=== PATIENT | male | born 1935 | race Caucasian/White ===

== ENCOUNTER 2021-08-09 12:57 | Emergency (ER) | payer MEDICARE, OTHER, SELFPAY ==
[2021-08-09 12:57] VITALS: BP 124/72; PULSE 80; RESP 16; TEMP 36.6; O2SAT 98; BMI 25.7
--- NOTE | 2021-08-09 13:21 | CT_ITS ---
FINAL REPORT TECHNIQUE: Axial images through the abdomen and pelvis were performed without contrast.This study was performed with techniques to keep radiation doses as low as reasonably achievable, (ALARA). Individualized dose reduction techniques using automated exposure control or adjustment of mA and/or kV according to the patient's size were employed. CLINICAL HISTORY: LLQ abd pain, hx of prostate cancer COMPARISON: 09/08/2016 FINDINGS: ABDOMEN: The lung bases are clear. The heart size is normal. There is a presumed cyst at the posterior aspect of the liver, stable from prior exam. The spleen is normal. No adrenal mass is identified. The aorta is normal in caliber with moderate vascular calcifications noted. There is no significant free fluid or adenopathy. There are multiple bilateral renal cysts. There is no nephrolithiasis. There is no hydronephrosis. PELVIS: The appendix is normal. There is sigmoid diverticulosis without evidence of diverticulitis. The urinary bladder is unremarkable. There is no significant free fluid or adenopathy. Osseous structures are unremarkable without evidence of bony lesion. IMPRESSION: No acute process. Reviewed, Interpreted and Dictated by Paulino Hahn III, MD Transcribed by Amber Patel Authenticated by Paulino Hahn III, MD on 08/09/2021 01:56:59 PM [facility]
[2021-08-09 13:58] VITALS: BP 156/90; PULSE 78; RESP 16; O2SAT 96
[2021-08-09 14:07] LABS: Microscopic, Urine URINE MICROSCOPIC (MICROSCOPIC)
[2021-08-09 14:11] LABS: Basophils # 0.1 K/mm3 (0-0.2); Basophils % 1.7 % (0.1-2.0); Eosinophils # 0.2 K/mm3 (0.0-0.4); Eosinophils % 3.7 % (0.1-12.0); Hematocrit 44.4 % (42.0-52.0); Hemoglobin 14.1 g/dL (14.1-18.0); Lymphocytes % 20.6 % (10-50); Mean Corpuscular HGB Conc 31.7 g/dL (31.8-35.4); Mean Corpuscular Hemoglobin 31.2 pg (27.0-31.2); Mean Corpuscular Volume 98.3 fl (80-94); Monocytes # 0.2 K/mm3 (0.1-1.0); Monocytes % 4.5 % (1.7-9.3); Neutrophils # 3.4 K/mm3 (1.8-7.8); Neutrophils % 69.5 % (37.0-80.0); Platelet Count 244 K/mm3 (142-424); Red Blood Count 4.52 M/mm3 (4.60-6.20); Red Cell Distribution Width 13.9 % (11.5-17.5); White Blood Count 4.9 K/mm3 (4.8-10.8)
[2021-08-09 14:27] LABS: Alanine Aminotransferase 21 U/L (12-78); Albumin Level 4.5 g/dl (3.5-5.0); Albumin/Globulin Ratio 1.5 (1.1-1.8); Alkaline Phosphatase 80 U/L (38-126); Anion Gap 10.3 mEq/L (5-15); Aspartate Amino Transferase 30 U/L (17-59); Bilirubin,Total 0.5 mg/dl (0.2-1.3); Blood Urea Nitrogen 19 mg/dl (9-20); Calcium 9.2 mg/dl (8.4-10.2); Carbon Dioxide 27 mmol/L (22.0-30.0); Chloride 107 mmol/L (98-107); Creatinine Clearance Estimated 64 mL/min (50-200); Estimated Glomerular Filt Rate 71 ml/min (>60); GFR (African American) 86 ML/MIN (>60); Globulin 3.1 g/dL (1.3-3.2); Glucose 102 mg/dl (74-100); Potassium 4.3 mmoL/L (3.5-5.1); Sodium 140 mmol/L (136-145); Total Protein,Serum 7.6 g/dl (6.3-8.2)
[2021-08-09 14:33] LABS: Appearance,Urine CLEAR (Clear); Bilirubin,Urine Negative (Negative); Blood, Urine TRACE-I (Negative); Color,Urine YELLOW (Yellow); Glucose,Urine (UA) Negative (Negative); Ketones,Urine Negative (Negative); Leukocyte Esterase,Urine Negative (Negative); Nitrate,Urine Negative (Negative); Protein,Urine Negative (Negative); Specific Gravity, Urine 1.025 (1.005-1.030); Urobilinogen,Urine 0.2 EU/dl (0.2)
[2021-08-09 14:48] LABS: RBC,Urine Occasional #/hpf (0-3); Squamous Epithelial Cell,Urine Occasional #/hpf (0-5)
--- NOTE | 2021-08-09 15:07 | HMH.EDABDPAI ---
ED Disposition Clinical Impression: Abdominal pain Disposition: Home, Self-Care Condition on Discharge: Good Instructions: DI for Acute Abdominal Pain Additional Instructions: Please follow up with your primary care physician in 2-3 days for further management. Please return to the emergency department for any concerning symptoms such as worsening abdominal pain, bloody stools, bloody vomit, difficulty urinating or any other concerns. Referrals: Abhinav Muhammad MD [Primary Care Provider] - - Critical Care Critical Care Time: No Attestation: On 08/09/21, the high probability of a clinically significant, sudden or life threatening deterioration of the following system(s) required my full and direct attention, intervention and personal management. The time I documented below is in addition to time spent performing reported procedures but includes the following listed in this critical care notation. Medical Decision Making - Medical Records Medical records reviewed: Yes: I reviewed the patient's medical records. - Helio Inquiry Pt receiving controlled substance: No Vital Signs: 08/09/21 12:57 08/09/21 13:58 08/09/21 18:12 Temperature 98 F 98 F Temperature Source Oral Oral Pulse Rate 78 78 Pulse Rate [Radial] 80 Respiratory Rate 16 16 18 Blood Pressure 156/90 H 145/78 H Blood Pressure [Right Arm] 124/72 Blood Pressure Mean [Right Arm] 89 Blood Pressure Source Automatic Cuff Blood Pressure Position Sitting Sitting Blood Pressure Position [Right Arm] Sitting 02 Sat by Pulse Oximetry 98 96 Oxygen Delivery Method Room Air Room Air Room Air - Lab Data Lab results reviewed: Yes: I reviewed the patient's lab results. Lab Results 08/09/21 13:09: Urine Color Yellow, Urine Appearance Clear, Urine pH 6.0, Ur Specific [place] 1.025, Urine Protein Negative, Urine Glucose (UA) Negative, Urine Ketones Negative, Urine Blood Trace-i, Urine Nitrate Negative, Urine Bilirubin Negative, Urine Urobilinogen 0.2, Ur Leukocyte Esterase Negative, Urine RBC Occasional, Urine WBC None, Ur Squamous Epith Cells Occasional, Urine Bacteria None 08/09/21 13:09: WBC 4.9, RBC 4.52 L, Hgb 14.1, Hct 44.4, MCV 98.3 H, MCH 31.2, MCHC 31.7 L, RDW 13.9, Plt Count 244, MPV 8.0, Neut % (Auto) 69.5, Lymph % (Auto) 20.6, [place] % (Auto) 4.5, Eos % (Auto) 3.7, Baso % (Auto) 1.7, Neut # (Auto) 3.4, Lymph # (Auto) 1.0, [place] # (Auto) 0.2, Eos # (Auto) 0.2, Baso # (Auto) 0.1 08/09/21 13:09: Sodium 140, Potassium 4.3, Chloride 107, Carbon Dioxide 27, Anion Gap 10.3, BUN 19, Creatinine 1.00, Estimated Creat Clear 64, Estimated GFR 71, Est GFR ( Amer) 86, Glucose 102 H, Calcium 9.2, Total Bilirubin 0.5, AST 30, ALT 21, Alkaline Phosphatase 80, Total Protein 7.6, Albumin 4.5, Globulin 3.1, Albumin/Globulin Ratio 1.5 Result diagrams: 08/09/21 13:09 08/09/21 13:09 Medical Decision Narrative: Mr. Hameed is a 86 yo male w/ PMH for prostate cancer who presents to the ED w/ LLQ abd pain for 2 weeks +. Patient is afebrile and hemodynamically stable on arrival, non toxic appearing. Physical exam patient has no tenderness on exam. Non periontici no rebound or guarding. Benign exam overall. No overlying skin changes and no bulges or discoloration of skin. Scrotum normal appearing. Differentials to consider include: Diverticular disease, UTI, SBO/volvus/malignancy, hernia less likely given exam, MSK. Basic labsk UA are non actionable. CT abdomen pelvis w/ contrast shows no obstructive process and no malignancy. Patient is instructed to fu w/ pcp in 2-3 days and to use muscle relaxer for symptoms and to return if symptoms worsen. Abdominal Pain HPI - General Chief Complaint: Abdominal Pain Stated Complaint: left side pain Time Seen by Provider: 08/09/21 13:00 Mode of Arrival: Ambulatory Source of Information: Patient Limitations: No Limitations Description of Symptoms (Recalled from ER Triage Doc. by RN): to ed per pvt car with c/o llq abd pain x
[2021-08-09 18:12] VITALS: BP 145/78; PULSE 78; RESP 18; TEMP 36.6; O2SAT 98
== END 2021-08-09 18:13 | disposition home or self-care (01) ==
PROVIDERS: Emergency Provider Student in an Organized Health Care Education/Training Program; PCP Family Medicine
DX: R10.32 Left lower quadrant pain (principal); I11.0 Hypertensive heart disease with heart failure; I50.9 Heart failure, unspecified; I25.10 Atherosclerotic heart disease of native coronary artery without angina pectoris; Z79.52 Long term (current) use of systemic steroids; Z79.899 Other long term (current) drug therapy; Z88.2 Allergy status to sulfonamides; Z85.46 Personal history of malignant neoplasm of prostate; Z95.0 Presence of cardiac pacemaker
CPT/HCPCS: 74176; 80053; 81001; 85025; 99284

== ENCOUNTER 2021-08-18 21:18 | Emergency (ER) | payer MEDICARE, OTHER, SELFPAY ==
[2021-08-18 21:20] VITALS: BP 153/72; PULSE 80; RESP 16; TEMP 36.8; O2SAT 96; BMI 25.4
--- NOTE | 2021-08-18 21:59 | CT_ITS ---
PROCEDURE INFORMATION: Exam: CT Lumbar Spine Without Contrast Exam date and time: 08/18/2021 9:59 PM Age: 86 years old Clinical indication: Patient HX: Low back pain that radiates to right side and down right leg x2 days. No prior SX to back; Additional info: Leg pain TECHNIQUE: Imaging protocol: Computed tomography images of the lumbar spine without contrast. Radiation optimization: All CT scans at this facility use at least one of these dose optimization techniques: automated exposure control; mA and/or kV adjustment per patient size (includes targeted exams where dose is matched to clinical indication); or iterative reconstruction. COMPARISON: CT ABDOMEN PELVIS WO CON 08/09/2021 1:28 PM FINDINGS: Vertebrae: No acute fracture. Vertebral body heights are maintained. Anatomic alignment is maintained. Discs/Spinal canal/Neural foramina: L1/L2: Circumferential disc bulge. Moderate facet arthropathy. Mild spinal canal narrowing. Mild bilateral neural foraminal narrowing. L2/L3: Circumferential disc bulge with associated posterior disc osteophyte complex. Severe facet arthropathy. Moderate spinal canal narrowing. Mild bilateral neural foraminal narrowing. L3/L4: Circumferential disc bulge. Severe facet arthropathy. Mild spinal canal narrowing. Mild bilateral neural foraminal narrowing. L4/L5: Circumferential disc bulge with posterior disc osteophyte complex. Severe facet arthropathy. Moderate spinal canal narrowing. Moderate bilateral neural foraminal narrowing. L5/S1: Posterior disc protrusion. Severe facet arthropathy. Moderate spinal canal narrowing. Moderate bilateral neural foraminal narrowing. Kidneys and ureters: Multiple simple appearing cysts within the bilateral kidneys largest measuring 6.7 cm within the superior pole the left kidney. Additionally there is a cortically based calcifications within the left kidney. Stomach and bowel: Scattered colonic diverticula. Visualized small bowel is unremarkable. Bladder: The bladder is normal without focal wall thickening. Vasculature: The vasculature demonstrates diffuse mild atherosclerotic calcification. Soft tissues: Unremarkable. Other findings: The adrenal glands are normal. Visualized liver, pancreas, stomach, and spleen are unremarkable. IMPRESSION: 1. No acute fracture. 2. No severe spinal canal narrowing. 3. Multilevel degenerative changes of the spine with multilevel moderate spinal canal and neural foraminal narrowing as above. 4. Other findings as above. COMMENTS: Consistent with the [employer]'s Incidental Findings Committee white paper (J Am Tasha Radiol 2018): Any incidental renal lesion less than 1 cm or classified as too small to characterize, or any incidental cystic renal lesion characterized as simple-appearing, is likely benign. No follow-up imaging is recommended for these lesions per consensus recommendations based on imaging criteria.
[2021-08-18 22:00] VITALS: BP 145/74; PULSE 76; O2SAT 94
--- NOTE | 2021-08-18 22:04 | HMH.EDGENADL ---
ED Disposition Clinical Impression: Lumbar radicular syndrome, Lumbar facet joint pain Disposition: Home, Self-Care Condition on Discharge: Good Instructions: DI for Lumbar Radiculopathy Additional Instructions: use meds and call pcp for follow up Prescriptions: predniSONE [Prednisone 20mg Tab] 20 mg PO BID #10 tab Transmission Status: Pending to [facility] Referrals: Abhinav Muhammad MD [Primary Care Provider] - - Critical Care Critical Care Time: No Attestation: On 08/18/21, the high probability of a clinically significant, sudden or life threatening deterioration of the following system(s) required my full and direct attention, intervention and personal management. The time I documented below is in addition to time spent performing reported procedures but includes the following listed in this critical care notation. Medical Decision Making - Medical Records Medical records reviewed: Yes: I reviewed the patient's medical records. - Helio Inquiry Pt receiving controlled substance: No Vital Signs: 08/18/21 21:20 Temperature 98.2 F Temperature Source Oral Pulse Rate [Left] 80 Respiratory Rate 16 Blood Pressure [Right Arm] 153/72 H Blood Pressure Mean [Right Arm] 99 02 Sat by Pulse Oximetry 96 Oxygen Delivery Method Room Air - Lab Data Lab results reviewed: Yes: I reviewed the patient's lab results. Lab Results 08/18/21 22:20: WBC 6.1, RBC 4.27 L, Hgb 13.5 L, Hct 41.6 L, MCV 97.5 H, MCH 31.5 H, MCHC 32.3, RDW 13.9, Plt Count 233, MPV 8.2, Neut % (Auto) 74.7, Lymph % (Auto) 16.5, [place] % (Auto) 4.6, Eos % (Auto) 3.4, Baso % (Auto) 0.8, Neut # (Auto) 4.6, Lymph # (Auto) 1.0, [place] # (Auto) 0.3, Eos # (Auto) 0.2, Baso # (Auto) 0.1 08/18/21 22:20: Sodium 143, Potassium 4.8, Chloride 106, Carbon Dioxide 30, Anion Gap 11.8, BUN 20, Creatinine 1.00, Estimated Creat Clear 64, Estimated GFR 71, Est GFR ( Amer) 86, Glucose 109 H, Calcium 9.1, C-Reactive Protein 45.2 H 08/18/21 22:20: ESR 122 H Result diagrams: 08/18/21 22:20 08/18/21 22:20 Orders (Tests/Meds): ED MEDICATIONS Generic Name Dose Route Start Last Admin Trade Name Nereida PRN Reason Stop Dose Admin Sodium Chloride 10 ml 08/18/21 21:56 08/18/21 22:04 Sodium Chloride 0.9% 10ml Flush Syringe IV 09/17/21 21:55 10 ml NEEDED PRN Administration Maintain IV Site Discontinued Medications Generic Name Dose Route Start Last Admin Trade Name Freq PRN Reason Stop Dose Admin Acetaminophen/Codeine Phosphate 1 isabel 08/18/21 23:36 08/18/21 23:38 Acetaminophen 300mg W/Codeine 30mg Take Home Pack (6) PO 08/18/21 23:37 1 isabel ONCE ONE Administration Ketorolac Tromethamine 15 mg 08/18/21 21:59 08/18/21 22:03 Ketorolac 30mg/Ml Vial IV 08/18/21 22:00 15 mg ONCE ONE Administration Methylprednisolone Sodium Succinate 125 mg 08/18/21 21:59 08/18/21 22:04 Methylprednisolone Sod Succ 125mg Vial IV 08/18/21 22:00 125 mg ONCE ONE Administration Morphine Sulfate 4 mg 08/18/21 23:18 Morphine 4mg/Ml Syringe IV 08/18/21 23:19 ONCE ONE Ondansetron HCl 4 mg 08/18/21 23:18 Ondansetron 4mg/2ml Vial IV 08/18/21 23:19 ONCE ONE - CT Data CT Scan: L-Spine Time Received: 23:[address] Reviewed: Yes: I have viewed the radiologist's interpretation Preliminary Findings: Abnormal (see report ) Medical Decision Narrative: pt has acute lumbar radicular pain with abn ct of back and elevated infl markers - improved after meds - no cauda equina sx General Adult HPI - General Chief complaint: PAIN Stated complaint: BACK PAIN DOWN R LEG Time Seen by Provider: 08/18/21 21:50 Mode of Arrival: Ambulatory Source of Information: Patient, Medical Record Limitations: No Limitations Description of Symptoms (Recalled from ER Triage Doc. by RN): pt reports to have chronic back pain and recently has started having right leg pain in the top of the right leg distal to the knee.
[2021-08-18 22:28] LABS: Basophils # 0.1 K/mm3 (0-0.2); Basophils % 0.8 % (0.1-2.0); Eosinophils # 0.2 K/mm3 (0.0-0.4); Eosinophils % 3.4 % (0.1-12.0); Hematocrit 41.6 % (42.0-52.0); Hemoglobin 13.5 g/dL (14.1-18.0); Lymphocytes % 16.5 % (10-50); Mean Corpuscular HGB Conc 32.3 g/dL (31.8-35.4); Mean Corpuscular Hemoglobin 31.5 pg (27.0-31.2); Mean Corpuscular Volume 97.5 fl (80-94); Mean Platelet Volume 8.2 fl (7.4-10.4); Monocytes # 0.3 K/mm3 (0.1-1.0); Monocytes % 4.6 % (1.7-9.3); Neutrophils # 4.6 K/mm3 (1.8-7.8); Neutrophils % 74.7 % (37.0-80.0); Platelet Count 233 K/mm3 (142-424); Red Blood Count 4.27 M/mm3 (4.60-6.20); Red Cell Distribution Width 13.9 % (11.5-17.5); White Blood Count 6.1 K/mm3 (4.8-10.8)
[2021-08-18 22:45] LABS: Blood Urea Nitrogen 20 mg/dl (9-20); Calcium 9.1 mg/dl (8.4-10.2); Carbon Dioxide 30 mmol/L (22.0-30.0); Creatinine Clearance Estimated 64 mL/min (50-200); Estimated Glomerular Filt Rate 71 ml/min (>60); GFR (African American) 86 ML/MIN (>60); Glucose 109 mg/dl (74-100); Potassium 4.8 mmoL/L (3.5-5.1); Sodium 143 mmol/L (136-145)
[2021-08-18 22:50] LABS: C-Reactive Protein 45.2 mg/L (0-4)
[2021-08-18 23:00] VITALS: BP 137/72; PULSE 73; O2SAT 95
[2021-08-18 23:05] LABS: Anion Gap 11.8 mEq/L (5-15); Chloride 106 mmol/L (98-107)
[2021-08-18 23:09] LABS: Erythrocyte Sedimentation Rate 122 mm/hr (0-20)
--- NOTE | 2021-08-18 23:41 | PC.NURSE ---
Radiology asked for a disk
[2021-08-18 23:59] VITALS: BP 122/72; PULSE 71; RESP 16; TEMP 36.6; O2SAT 96
== END 2021-08-19 00:04 | disposition home or self-care (01) ==
PROVIDERS: Emergency Provider Emergency Medicine; PCP Family Medicine
DX: M54.41 Lumbago with sciatica, right side (principal); I25.10 Atherosclerotic heart disease of native coronary artery without angina pectoris; I10 Essential (primary) hypertension; Z95.0 Presence of cardiac pacemaker; Z79.899 Other long term (current) drug therapy
CPT/HCPCS: 72131; 80048; 85025; 85651; 86140; 96374; 96375; 99284

== ENCOUNTER 2023-10-20 10:57 | Emergency (ER) | payer MEDICARE, OTHER, SELFPAY ==
--- NOTE | 2023-10-20 11:03 | EXP.UTC ---
Discharge Plan Prescriptions Prescriptions: No Action atenolol 25 MG tablet 25 mg PO BID clopidogrel 75 MG tablet 75 mg PO DAILY flecainide 100 MG tablet 100 mg PO BID prednisone 20 MG tablet 20 mg PO BID Qty: 10 0RF Referrals Follow up/Referrals: Abhinav Muhammad MD [Primary Care Provider] - See instructions Discharge ED Provider: Giovani Leon [facility] HPI General Stated complaint: congestion, weakness Time Seen by Provider: 10/20/23 11:24 Related Data Home Medications Medication Instructions Recorded Confirmed atenolol 25 mg tablet 25 mg PO BID htn 06/15/19 06/15/19 clopidogrel 75 mg tablet 75 mg PO DAILY blood thinner 06/15/19 06/15/19 flecainide 100 mg tablet 100 mg PO BID . 06/15/19 06/15/19 Previous Rx's Medication Instructions Recorded prednisone 20 mg tablet 20 mg PO BID #10 tabs 08/18/21 Allergies Allergy/AdvReac Type Severity Reaction Status Date / Time Sulfa (Sulfonamide Allergy Mild Verified 06/15/19 06:54 Antibiotics) [SULFA (SULFONAMIDE ANTIBIOTICS)] [facility] Disclaimer: The information contained in this section may have been updated after the patient was seen, as this information can be updated by other users. Social History alcohol intake: never current occupational status: retired Travel in the last 8 weeks: None household members: spouse housing: house
--- NOTE | 2023-10-20 11:23 | PC.NURSE ---
While pt was waiting for UTC in lobby, registration reports they want the ER now . Brought back to room 9 in ER.
[2023-10-20 11:24] VITALS: BP 161/75; PULSE 80; RESP 16; TEMP 38.7; O2SAT 95; BMI 26.4
[2023-10-20 11:26] VITALS: BP 161/75; PULSE 74; O2SAT 95
[2023-10-20 11:30] VITALS: BP 134/66; PULSE 76; O2SAT 95
[2023-10-20 11:34] LABS: Influenza A, PCR Not Detected (NotDetected); Influenza B, PCR Not Detected (NotDetected)
[2023-10-20 12:00] VITALS: BP 143/63; PULSE 70; O2SAT 93
--- NOTE | 2023-10-20 12:25 | PC.NURSE ---
called lab to check eta on covid swab states 20 minutes left
--- NOTE | 2023-10-20 12:26 | PC.NURSE ---
UPDATED PT AND FAMILY MEMBER ON THE STATUS OF COVID SWAB
[2023-10-20 12:52] LABS: Coronavirus 19, PCR Detected (NotDetected)
[2023-10-20 13:30] VITALS: BP 135/68; PULSE 71; RESP 18; TEMP 36.7; O2SAT 97
--- NOTE | 2023-10-20 17:21 | ED_ITS ---
Discharge Plan Disposition Patient Disposition: Home, Self-Care Condition: Good Prescriptions Prescriptions: New prochlorperazine maleate [Compazine] 5 mg tablet 5 mg PO BID PRN (Reason: nausea and vomiting) Qty: 7 0RF No Action atenolol 25 MG tablet 25 mg PO BID clopidogrel 75 MG tablet 75 mg PO DAILY flecainide 100 MG tablet 100 mg PO BID prednisone 20 MG tablet 20 mg PO BID Qty: 10 0RF Referrals Follow up/Referrals: Abhinav Muhammad MD [Primary Care Provider] - See instructions Activity Restrictions/Add. Instructions Additional Instructions/Restrictions: Unfortunately your flecainide medication as strong interactions with Paxlovid and therefore it is not recommended per guidelines that it be prescribed. I have prescribed a nausea medication as we talked about. Please take Tylenol as needed for fever. Please return with any new or worsening symptoms. Clinical Impressions Clinical Impression: COVID Instructions Patient Instructions: DI for COVID-19 (Suspected or Confirmed ) Discharge ED Provider: Giovani Leon General Adult HPI General Chief complaint: Upper Respiratory Infection Stated complaint: congestion, weakness Time Seen by Provider: 10/20/23 11:24 Mode of Arrival: Wheelchair Source of Information: Patient Limitations: No Limitations Description of Symptoms (Recalled from ER Triage Doc. by RN): Patient reports a cough, cold, congestion and increased weakness since yesterday. Daughter states she did an at home COVID swab and it had a faint line. History of Present Illness HPI narrative: The patient presents with a chief complaint of concerns about possibly having COVID-19. He reports feeling unwell since yesterday and mentions having been around numerous individuals who could potentially have COVID-19. The patient describes experiencing severe headaches, which are unusual for him, and extreme weakness to the point of being unable to stand up. Additionally, he notes some coughing but denies any shortness of breath. He has not had COVID-19 in the past and has received only the first dose of the COVID-19 vaccine a few years ago. The patient denies any chronic lung conditions. He also mentions having a fever. The patient has a pacemaker and is currently on several medications including Plavix (Clopidogrel), flecainide, atenolol, and a statin, which was recently started due to newly diagnosed high cholesterol. Please note that above description of symptoms, in this electronic medical record under categorization of recalled from ER triage doctor by RN are reflective of an initial nursing assessment, however, is not reflective of my full history and physical exam that was personally taken and clarified. Consequentially, this preceding description of symptoms, which may include the patient's categorized chief complaint in the EMR, do not reflect my personal clinical impression, and the ultimate description of history of present illness and patient stated complaints should be deferred to this section of the note. Unless stated otherwise or congruent with this section of the note, additional signs, symptoms, or incongruence should be interpreted as inaccurate with my clinical impression. Related Data Home Medications Medication Instructions Recorded Confirmed atenolol 25 mg tablet 25 mg PO BID htn 06/15/19 06/15/19 clopidogrel 75 mg tablet 75 mg PO DAILY blood thinner 06/15/19 06/15/19 flecainide 100 mg tablet 100 mg PO BID . 06/15/19 06/15/19 Previous Rx's Medication Instructions Recorded prednisone 20 mg tablet 20 mg PO BID #10 tabs 08/18/21 prochlorperazine maleate 5 mg 5 mg PO BID PRN nausea and 10/20/23 tablet (Compazine) vomiting 1 dose #7 tabs Allergies Allergy/AdvReac Type Severity Reaction Status Date / Time Sulfa (Sulfonamide Allergy Mild Verified 06/15/19 06:54 Antibiotics) [SULFA (SULFONAMIDE ANTIBIOTICS)] [facility] Disclaimer: The information contained in this section may have been updated after the patient was seen, as this information can be updated by other users. Social History Smoking Status: Never smoker alcohol intake: never current occupational status: retired Travel in the last 8 weeks: None household members: spouse housing: house ROS Obtained: Yes other As per HPI Physical Exam General General appearance: alert and in no apparent distress Head Head exam: atraumatic and normocephalic Eye Eye exam: Present normal appearance Neck Neck exam: Present normal inspection Chest Chest inspection: Present normal inspection and symmetric chest wall rise Respiratory Respiratory exam: Present normal lung sounds bilaterally; Absent respiratory distress Cardiovascular Cardiovascular exam: Present regular rate and normal rhythm Abdominal Exam Abdominal exam: Present soft Neurological Exam Neurological exam: Present alert and oriented X3 Psychiatric Psychiatric exam: Present normal affect and normal mood Skin Skin exam: Present warm and dry Medical Decision Making Medical Records Medical records reviewed: Yes I reviewed the patient's medical records. Helio Inquiry Pt receiving controlled substance: No Vital Signs: 10/20/23 11:24 10/20/23 11:26 10/20/23 11:30 Temperature 101.6 F H Temperature Source Oral Pulse Rate 74 76 Pulse Rate [Radial] 80 Respiratory Rate 16 Blood Pressure 161/75 H 134/66 Blood Pressure [Right Arm] 161/75 H Blood Pressure Mean [Right Arm] 103 Blood Pressure Source Blood Pressure Source [Right Arm] Automatic Cuff Blood Pressure Position Blood Pressure Position [Right Arm] Sitting 02 Sat by Pulse Oximetry 95 95 95 Oxygen Delivery Method Room Air Room Air Room Air 10/20/23 12:00 10/20/23 13:30 Temperature 98.1 F Temperature Source Oral Pulse Rate 70 71 Pulse Rate [Radial] Respiratory Rate 18 Blood Pressure 143/63 H 135/68 Blood Pressure [Right Arm] Blood Pressure Mean [Right Arm] Blood Pressure Source Automatic Cuff Blood Pressure Source [Right Arm] Blood Pressure Position Sitting Blood Pressure Position [Right Arm] 02 Sat by Pulse Oximetry 93 L Oxygen Delivery Method Room Air Room Air Lab Data Lab Results 10/20/23 11:27: SARS-CoV-2 (PCR) Detected A, Influenza A Untype (PCR) Not detected, Influenza Type B (PCR) Not detected Orders (Tests/Meds): ORDERS Category Date Time Status Rapid PCR Covid and Flu A/B Stat Lab 10/20/23 11:27 Completed Medical Decision Narrative: Patient with history and exam per above presenting for evaluation of concerns for exposure to COVID, malaise Diagnoses considered include COVID-19, influenza, no clinical evidence of pneumonia, meningitis, otitis, or acute surgical pathology ED workup and treatment included: COVID and flu testing Labs were independently interpreted by me, significant for COVID-positive My clinical impression at this time is most consistent with COVID-19, patient, given use of flecainide, is not a candidate for Paxlovid therapy. However, he is nontoxic-appearing, no hypoxemia, no other clinical evidence of acute compli cation at this time. I discussed my clinical impression with patient and answered all questions. At this time, the evidence for any other entities in the differential is insufficient to warrant any further testing or ED observation. This was explained to the patient. The patient was advised that persistent or worsening symptoms require further evaluation. I confirmed the patient's understanding of this discussion. Critical Care Critical Care Time Critical Care Time: No
== END 2023-10-20 13:31 | disposition home or self-care (01) ==
LOC: UTC 11:04 → ER 11:23
PROVIDERS: Emergency Provider Emergency Medicine; PCP Family Medicine
DX: U07.1 COVID-19 (principal); R51.9 Headache, unspecified; R53.1 Weakness; R05.9 Cough, unspecified
CPT/HCPCS: 87636; 99283

== ENCOUNTER 2023-11-23 10:29 | Outpatient (CLI) | payer MEDICARE, OTHER, SELFPAY ==
--- NOTE | 2023-11-23 10:41 | XR_ITS ---
FINAL REPORT CLINICAL HISTORY: Lt Knee Pain. Torn meniscus 20 yrs ago- never had sx to repair. FINDINGS: LEFT KNEE 3 views of the left knee were obtained. There is no acute fracture or dislocation. Visualized joint spaces are normally aligned. Soft tissues are unremarkable. IMPRESSION: No acute bony abnormality. Reviewed, Interpreted and Dictated by Romie Tafoya MD Transcribed by Amber Patel Authenticated and [facility]
== END 2023-11-23 23:59 | disposition home or self-care (01) ==
LOC: RAD 10:30
PROVIDERS: PCP Family Medicine; Visit Provider Orthopaedic Surgery
DX: M25.562 Pain in left knee (principal)
CPT/HCPCS: 73562

== ENCOUNTER 2024-06-04 11:00 | Outpatient (RCR) | payer MEDICARE, OTHER, SELFPAY | END 2024-06-04 23:59 | disposition home or self-care (01) | LOC: PT 11:00 | PROVIDERS: PCP Family Medicine; Visit Provider Physician Assistant | DX: R26.89 Other abnormalities of gait and mobility (principal) | CPT/HCPCS: 97110; 97112; 97163; 97530 ==

== ENCOUNTER 2024-11-11 10:46 | Outpatient (CLI) | payer MEDICARE, OTHER, SELFPAY ==
--- OUTSIDE RECORDS SUMMARY | 2024-11-12 15:10 | XMS_ITS | Data Portability ---
Author Organization [facility] [place] CLOSED Address [address] [facility] [address] [address] [place] [address] Care Team Providers Care Claims Agent Right Of Way Name Role Phone CHRISTINA NOBLE Primary Care Provider ELOISE WHITE Laminating Machine Operator Assessment Encounter Date Assessment Date Assessment LastModified by Organization Details LastModified Time 04/09/2024 04/09/2024 follow up annually, pending path [email or web address] Not available 04/09/2024 09:55:26 Plan of Treatment Reminders Order Date Submit Date Provider Last Modified By Organization Details Last Modified Time Details Appointments RECHECK 2024 11:40A M ELOISE WHITE MD Not available Not available Not available PHYSICAL EXAM 2024 09:00A M CHRISTINA NOBLE PA-C Not available Not available Not available Lab surgical pathology study 2023 [facility], [address] [place] [address], [address], 04/11/2024 23:10:45 TSH, serum or plasma 2023 024 [facility], [address] [place] [address], [phone], 04/08/2024 12:48:19 urinalysi s panel, auto 2023 024 [email or web address] [facility], [address] [place] [address] , [place], [address], 04/08/2024 10:01:34 CBC w/ auto diff 2023 024 [facility], [address] [place] [address], [phone], 04/08/2024 12:00:06 CMP, serum or plasma 2023 024 [facility], [address] [place] [address], [id number], 04/08/2024 13:00:29 hepatitis C Ab, serum 2023 024 [facility], [address] [place] [address], [address], 04/09/2024 17:35:16 lipid panel, serum [address], [address] [place] [address], [address], 03/12/2024 08:18:43 Referral dermatolo gist referral - fbe 2023 024 [email or web address] Gustavo Vo MD, [address], [place] [address], [place], [address], 05/06/2024 10:34:39 physical therapist referral 2023 024 [email or web address] [facility], [address], [place], [address], 05/17/2024 07:49:55 Procedures pacemaker programmi ng, dual lead (PROC) 2024 025 [facility], [address], [facility], [place], [address], 09/05/2024 10:37:34 device check (PROC) 2023 024 [email or web address] [facility], [address], [facility], [place], [address], 03/05/2024 11:22:31 Surgeries None recorded. Imaging electroca rdiogram 2023 024 [email or web address] [facility], [address], [place], [address], 03/05/2024 10:42:28 Medication Orders None recorded. Patient TargetsNo targets recorded. Patient Instructions Encounter Date Encounter Id Patient Instructions Last Modified By Organization Details Last Modified Time 08/23/2023 [id number] body mass index: care instructions major Not available 08/23/2023 09:41:06 Patient was give n an opportunity and encouraged to ask questions. All questions and concerns were addressed to the best of my ability. Follow-up in 6 months with an EKG. Continue with home pacemaker monitoring Thank you for allowing us to participate in the care of your patient. If we can be of any further assistance please do not hesitate to contact us. Jamel Cherry MD, FACP, FACC, [facility] Cardiology-[facility] [phone] major Not available 08/23/2023 09:41:05 04/09/2024 [id number] Education: We discussed the potential diagnostic options, options for further evaluation and treatments, and the risks and benefits of each. [email or web address] Not available 04/08/2024 16:52:38 Reason for Referral Physical Therapist Referral for Unsteady when walking Referring Physician: [facility], Encounter Date: 04/08/2024 Trestle Mechanic Referral for M ultiple benign melanocytic nevi fbe Referring Physician: [facility], Encounter Date: 04/08/2024 Results Created Date Observation Date Name Description Value Unit Range Abnormal Flag Note LastModifiedBy Organization Detail LastModifiedTime 08/23/19 24 08/23/2023 MAGNE SIUM magnesium 2.1 mg/dL 1.6-2. 6 normal Not Available [facility] [address] [place], [address], 08/23/2023 12:47:29 08/23/19 24 08/23/2023 LIPID PROFI LE HDL cholesterol 42 mg/dL 40-242 normal Not Available [facility] [address] [place] [address], [address], 08/23/2023 12:47:31 08/23/19 24 08/23/2023 LIPID PROFI LE triglyceride s 164 mg/dL 0-149 high TRIGL YCERI DE RANGE S SCARLETT L: < 150 BORDE RLINE HIGH: 150 - 199 HIGH: 200 - 499 VERY HIGH: > OR = 500 Not Available [facility] [address] [place] [address], [address], 08/23/2023 12:47:31 08/23/19 24 08/23/2023 LIPID PROFI LE cholesterol 254 mg/dL 0-199 high YOANNA STERO L (TOTA L) RANGE S JEANNETTE ABLE: < 200 BORDE RLINE : 200 - 239 HIGHE R RISK: > 239 Not Available [facility] [address] [place] [address], [address], 08/23/2023 12:47:31 08/23/19 24 08/23/2023 LIPID PROFI LE LDL cholesterol 179 mg/dL _(hailey c) 0-99 high LDL YOANNA STERO L RANGE S OPTIM AL: < 100 NEAR/ ABOVE OPTIM AL: 100 - 129 BORDE RLINE HIGH: 130 - 159 HIGH: 160 - 189 VERY HIGH: > OR = 190 Not Available [facility] [address] [place] [address], [address], 08/23/2023 12:47:31 08/23/19 24 08/23/2023 COMP. METAB OLIC PANEL glucose 103 mg/dL 74-100 high Not Available [facility] [address] [place] [address], [address], 08/23/2023 12:47:33 08/23/19 24 08/23/2023 COMP. METAB OLIC PANEL blood urea nitrogen 20 mg/dL 6-20 normal Not Available [facility] [address] [place] [address], [address], 08/23/2023 12:47:33 08/23/19 24 08/23/2023 COMP. METAB OLIC PANEL creatinine 1.12 mg/dL 0.70-1 .28 normal Not Available [facility] [address] [place] [address], [address], 08/23/2023 12:47:33 08/23/19 24 08/23/2023 COMP. METAB OLIC PANEL BUN/creatini ne ratio 18 (calc ) 10-20 normal Not Available [facility] [address] [place] [address], [address], 08/23/2023 12:47:33 08/23/19 24 08/23/2023 COMP. METAB OLIC PANEL sodium 141 mmol/ L 136-14 5 normal Not Available [facility] [address] [place] [address], [address], 08/23/2023 12:47:33 08/23/19 24 08/23/2023 COMP. METAB OLIC PANEL potassium 4.3 mmol/ L 3.4-5. 0 normal Not Available [facility] [address] [place] [address], [address], 08/23/2023 12:47:33 08/23/19 24 08/23/2023 COMP. METAB OLIC PANEL chloride 106 mmol/ L 98-107 normal Not Available [facility] [address] [place] [address], [address], 08/23/2023 12:47:33 08/23/19 24 08/23/2023 COMP. METAB OLIC PANEL carbon dioxide 24 mmol/ L 22-31 normal Not Available [facility] [address] [place] [address], [address], 08/23/2023 12:47:33 08/23/19 24 08/23/2023 COMP. METAB OLIC PANEL anion gap 11 (calc ) 7-25 normal Not Available [facility] [address] [place] [address], [address], 08/23/2023 12:47:33 08/23/19 24 08/23/2023 COMP. METAB OLIC PANEL calcium 9.8 mg/dL 8.6-10 .2 normal Not Available [facility] [address] [place] [address], [address], 08/23/2023 12:47:33 08/23/19 24 08/23/2023 COMP. METAB OLIC PANEL total protein 7.4 g/dL 6.4-8. 3 normal Not Available [facility] [address] [place] [address], [address], 08/23/2023 12:47:33 08/23/19 24 08/23/2023 COMP. METAB OLIC PANEL albumin 4.4 g/dL 3.5-5. 2 normal Not Available [facility] [address] [place] [address], [address], 08/23/2023 12:47:33 08/23/19 24 08/23/2023 COMP. METAB OLIC PANEL globulin 3.0 1.5-4. 5 normal Not Available [facility] [address] [place] [address], [address], 08/23/2023 12:47:33 08/23/19 24 08/23/2023 COMP. METAB OLIC PANEL albumin/glob ulin ratio 1.5 (calc ) 1.1-2. 5 normal Not Available [facility] [address] [place] [address], [address], 08/23/2023 12:47:33 08/23/19 24 08/23/2023 COMP. METAB OLIC PANEL bilirubin, total 0.4 mg/dL 0.1-1. 2 normal Not Available [facility] [address] [place] [address], [address], 08/23/2023 12:47:33 08/23/19 24 08/23/2023 COMP. METAB OLIC PANEL alkaline phosphatase 92 U/L 40-129 normal Not Available [facility] [address] [place], [address], 08/23/2023 12:47:33 08/23/19 24 08/23/2023 COMP. METAB OLIC PANEL AST 16 U/L 0-40 normal Not Available [facility] [address] [place], [address], 08/23/2023 12:47:33 08/23/19 24 08/23/2023 COMP. METAB OLIC PANEL ALT 13 U/L 0-41 normal Not Available [facility] [address] [place], [address], 08/23/2023 12:47:33 08/23/19 24 08/23/2023 COMP. METAB OLIC PANEL GFR 63 >= 60 normal NOT E New calcu latio n for GFR (CKD- EPI 2020) is formu lated witho ut race adjus tment facto rs at the recom menda tion of the Edi Oliveira y Óscar atvicky and [facility] Tre[facility]oe ty of Nephr ology . This calcu latio n has not been valid ated in pregn ant women . For hallie grey nts refer to https ://traci arguelles.o benton/pr brianda au s/KDO QI/gf r_cal culat orPed Not Available [facility] [address] [place], [address], 08/23/2023 12:47:33 03/05/20 24 03/05/2024 LIPID PROFI LE HDL cholesterol 45 mg/dL 40-242 normal Not Available [facility] [address] [place], [address], 03/05/2024 12:22:20 03/05/20 24 03/05/2024 LIPID PROFI LE triglyceride s 119 mg/dL 0-149 normal TRIGL YCERI DE RANGE S SCARLETT L: < 150 BORDE RLINE HIGH: 150 - 199 HIGH: 200 - 499 VERY HIGH: > OR = 500 Not Available [facility] [address] [place] [address], [address], 03/05/2024 12:22:20 03/05/20 24 03/05/2024 LIPID PROFI LE cholesterol 163 mg/dL 0-199 normal YOANNA STERO L (TOTA L) RANGE S JEANNETTE ABLE: < 200 BORDE RLINE : 200 - 239 HIGHE R RISK: > 239 Not Available [facility] [address] [place] [address], [address], 03/05/2024 12:22:20 03/05/20 24 03/05/2024 LIPID PROFI LE LDL cholesterol 94 mg/dL _(hailey c) 0-99 normal LDL YOANNA STERO L RANGE S OPTIM AL: < 100 NEAR/ ABOVE OPTIM AL: 100 - 129 BORDE RLINE HIGH: 130 - 159 HIGH: 160 - 189 VERY HIGH: > OR = 190 Not Available [facility] [address] [place] [address], [address], 03/05/2024 12:22:20 04/08/20 24 04/08/2024 COMPL ETE BLOOD COUNT white blood cells 5.4 10*3/ uL 3.8-10 .8 normal Not Available [facility] [address] [place] [address], [address], 04/08/2024 12:00:06 04/08/20 24 04/08/2024 COMPL ETE BLOOD COUNT red blood cells 4.46 10*6/ uL 4.20-5 .80 normal Not Available [facility] [address] [place] [address], [address], 04/08/2024 12:00:06 04/08/20 24 04/08/2024 COMPL ETE BLOOD COUNT hemoglobin 14.2 g/dL 14.0-1 8.0 normal Not Available [facility] [address] [place] [address], [address], 04/08/2024 12:00:06 04/08/20 24 04/08/2024 COMPL ETE BLOOD COUNT hematocrit 40.7 % 40.0-5 2.0 normal Not Available [facility] [address] [place] [address], [address], 04/08/2024 12:00:06 04/08/20 24 04/08/2024 COMPL ETE BLOOD COUNT MCV 91 fL 80-100 normal Not Available [facility] [address] [place] [address], [address], 04/08/2024 12:00:06 04/08/2004/08/2024 COMPL ETE BLOOD COUNT MCH 32 pg 26-35 normal Not Available [facility] [address] [place] [address], [address], 04/08/2024 12:00:06 04/08/20 24 04/08/2024 COMPL ETE BLOOD COUNT MCHC 35 g/dL 32-36 normal Not Available [facility] [address] [place] [address], [address], 04/08/2024 12:00:06 04/08/2004/08/2024 COMPL ETE BLOOD COUNT RDW 13.3 % 11.0-1 5.0 normal Not Available [facility] [address] [place] [address], [address], 04/08/2024 12:00:06 04/08/20 24 04/08/2024 COMPL ETE BLOOD COUNT MPV 8.5 fL 6.2-10 .5 normal Not Available [facility] [address] [place] [address], [address], 04/08/2024 12:00:06 04/08/2004/08/2024 COMPL ETE BLOOD COUNT platelet count 184 10*3/ uL 150-40 0 normal Not Available [facility] [address] [place] [address], [address], 04/08/2024 12:00:06 04/08/2004/08/2024 COMPL ETE BLOOD COUNT neutrophil,a bsolute 3.7 10*3/ uL 1.6-8. 4 normal Not Available [facility] [address] [place] [address], [address], 04/08/2024 12:00:06 04/08/20 24 04/08/2024 COMPL ETE BLOOD COUNT lymphocyte,a bsolute 1.1 10*3/ uL 0.4-5. 1 normal Not Available [facility] [address] [place] [address], [address], 04/08/2024 12:00:06 04/08/2004/08/2024 COMPL ETE BLOOD COUNT monocyte,abs olute 0.4 10*3/ uL 0.0-1. 2 normal Not Available [facility] [address] [place] [address], [address], 04/08/2024 12:00:06 04/08/20 24 04/08/2024 COMPL ETE BLOOD COUNT eosinophil,a bsolute 0.2 10*3/ uL 0.0-0. 8 normal Not Available [facility] [address] [place] [address], [address], 04/08/2024 12:00:06 04/08/20 24 04/08/2024 COMPL ETE BLOOD COUNT basophil,abs olute 0.1 10*3/ uL 0.0-0. 3 normal Not Available [facility] [address] [place] [address], [address], 04/08/2024 12:00:06 04/08/20 24 04/08/2024 COMPL ETE BLOOD COUNT % neutrophils 67.6 % 42.0-7 8.0 normal Not Available [facility] [address] [place] [address], [address], 04/08/2024 12:00:06 04/08/20 24 04/08/2024 COMPL ETE BLOOD COUNT % lymphocytes 20.7 % 11.0-4 7.0 normal Not Available [facility] [address] [place] [address], [address], 04/08/2024 12:00:06 04/08/20 24 04/08/2024 COMPL ETE BLOOD COUNT % monocytes 7.4 % 0.0-11 .0 normal Not Available [facility] [address] [place] [address], [address], 04/08/2024 12:00:06 04/08/20 24 04/08/2024 COMPL ETE BLOOD COUNT % eosinophils 3.0 % 0.0-7. 0 normal Not Available [facility] [address] [place] [address], [address], 04/08/2024 12:00:06 04/08/20 24 04/08/2024 COMPL ETE BLOOD COUNT % basophils 1.3 % 0.0-3. 0 normal Not Available [facility] [address] [place] [address], [address], 04/08/2024 12:00:06 04/08/20 24 04/08/2024 COMPL ETE BLOOD COUNT nucleated red cells 0.1 % 0.0-0. 9 normal Not Available [facility] [address] [place] [address], [address], 04/08/2024 12:00:06 04/08/20 24 04/08/2024 COMPL ETE BLOOD COUNT nucleated RBCs, absolute 0.01 10*3/ uL not estab. normal Not Available [facility] [address] [place] [address], [address], 04/08/2024 12:00:06 04/08/20 24 04/08/2024 TSH TSH 1.530 u[IU] /mL 0.270- 4.200 normal Not Available [facility] [address] [place] [address], [address], 04/08/2024 12:48:19 04/08/20 24 04/08/2024 COMP. METAB OLIC PANEL glucose 97 mg/dL 74-100 normal Not Available [facility] [address] [place] [address], [address], 04/08/2024 13:00:29 04/08/20 24 04/08/2024 COMP. METAB OLIC PANEL blood urea nitrogen 22 mg/dL 6-20 high Not Available [facility] [address] [place] [address], [address], 04/08/2024 13:00:29 04/08/20 24 04/08/2024 COMP. METAB OLIC PANEL creatinine 1.06 mg/dL 0.70-1 .28 normal Not Available [facility] [address] [place] [address], [address], 04/08/2024 13:00:29 04/08/20 24 04/08/2024 COMP. METAB OLIC PANEL BUN/creatini ne ratio 21 (calc ) 10-20 high Not Available [facility] [address] [place] [address], [address], 04/08/2024 13:00:29 04/08/20 24 04/08/2024 COMP. METAB OLIC PANEL sodium 142 mmol/ L 136-14 5 normal Not Available [facility] [address] [place] [address], [address], 04/08/2024 13:00:29 04/08/20 24 04/08/2024 COMP. METAB OLIC PANEL potassium 4.2 mmol/ L 3.4-5. 0 normal Not Available [facility] [address] [place] [address], [address], 04/08/2024 13:00:29 04/08/20 24 04/08/2024 COMP. METAB OLIC PANEL chloride 106 mmol/ L 98-107 normal Not Available [facility] [address] [place] [address], [address], 04/08/2024 13:00:29 04/08/20 24 04/08/2024 COMP. METAB OLIC PANEL carbon dioxide 23 mmol/ L 22-31 normal Not Available [facility] [address] [place] [address], [address], 04/08/2024 13:00:29 04/08/20 24 04/08/2024 COMP. METAB OLIC PANEL anion gap 13 (calc ) 7-25 normal Not Available [facility] [address] [place] [address], [address], 04/08/2024 13:00:29 04/08/20 24 04/08/2024 COMP. METAB OLIC PANEL calcium 9.6 mg/dL 8.6-10 .2 normal Not Available [facility] [address] [place] [address], [address], 04/08/2024 13:00:29 04/08/20 24 04/08/2024 COMP. METAB OLIC PANEL total protein 7.5 g/dL 6.4-8. 3 normal Not Available [facility] [address] [place] [address], [address], 04/08/2024 13:00:29 04/08/20 24 04/08/2024 COMP. METAB OLIC PANEL albumin 4.3 g/dL 3.5-5. 2 normal Not Available [facility] [address] [place] [address], [address], 04/08/2024 13:00:29 04/08/20 24 04/08/2024 COMP. METAB OLIC PANEL globulin 3.2 1.5-4. 5 normal Not Available [facility] [address] [place] [address], [address], 04/08/2024 13:00:29 04/08/20 24 04/08/2024 COMP. METAB OLIC PANEL albumin/glob ulin ratio 1.3 (calc ) 1.1-2. 5 normal Not Available [facility] [address] [place] [address], [address], 04/08/2024 13:00:29 04/08/20 24 04/08/2024 COMP. METAB OLIC PANEL bilirubin, total 0.5 mg/dL 0.1-1. 2 normal Not Available [facility] [address] [place] [address], [address], 04/08/2024 13:00:29 04/08/20 24 04/08/2024 COMP. METAB OLIC PANEL alkaline phosphatase 91 U/L 40-129 normal Not Available [facility] [address] [place] [address], [address], 04/08/2024 13:00:29 04/08/20 24 04/08/2024 COMP. METAB OLIC PANEL AST 16 U/L 0-40 normal Not Available [facility] [address] [place] [address], [address], 04/08/2024 13:00:29 04/08/20 24 04/08/2024 COMP. METAB OLIC PANEL ALT 13 U/L 0-41 normal Not Available [facility] [address] [place] [address], [address], 04/08/2024 13:00:29 04/08/20 24 04/08/2024 COMP. METAB OLIC PANEL GFR 68 >= 60 normal NOT E New calcu latio n for GFR (CKD- EPI 2020) is formu lated witho ut race adjus tment facto rs at the [facility] menda tion of the Edi Oliveira y Óscar driscoll and [facility] . This calcu latio n has not been valid ated in pregn ant women . For pedia tric patie nts refer to https ://traci arguelles.jumana bhardwaj/florentin au s/LOBITOO QI/gf r_cal culat orPed Not Available [facility] [address] [place] [address], [address], 04/08/2024 13:00:29 04/08/20 24 04/09/2024 HEPAT ITIS C AB SCR, REFLE X HCVQT hcab scr, reflex viral RNA qt NONREA CTIVE nonrea ctive normal Antib odies to HCV were not detec twila; does not exclu de the possi bilit y of expos ure to HCV. Not Available [facility] [address] [facility], [place], [address], 04/09/2024 17:35:16 04/08/20 24 04/08/2024 urina lysis panel , auto Unknown Analyte Clean Catch Not Available [address] [place], [place], [address], 04/08/2024 07:18:33 04/08/20 24 04/08/2024 urina lysis panel , auto Unknown Analyte Yellow Not Available [address] [place], [place], [address], 04/08/2024 07:18:33 04/08/20 24 04/08/2024 urina lysis panel , auto Unknown Analyte Clear Not Available [address], [place], [address], 04/08/2024 07:18:33 04/08/20 24 04/08/2024 urina lysis panel , auto Unknown Analyte 1.010 Not Available [address] [place], [place], [address], 04/08/2024 07:18:33 04/08/20 24 04/08/2024 urina lysis panel , auto Unknown Analyte 5.0 Not Available [address] [place], [place], [address], 04/08/2024 07:18:33 04/08/20 24 04/08/2024 urina lysis panel , auto Unknown Analyte Negati ve Not Available [address] [place], [place], [address], 04/08/2024 07:18:33 04/08/20 24 04/08/2024 urina lysis panel , auto Unknown Analyte Negati ve Not Available [address] [place], [place], [address], 04/08/2024 07:18:33 04/08/20 24 04/08/2024 urina lysis panel , auto Unknown Analyte Trace Not Available [address] [place], [place], [address], 04/08/2024 07:18:33 04/08/20 24 04/08/2024 urina lysis panel , auto Unknown Analyte Normal Not Available [address] [place], [place], [address], 04/08/2024 07:18:33 04/08/20 24 04/08/2024 urina lysis panel , auto Unknown Analyte Negati ve Not Available [address] [place], [place], [address], 04/08/2024 07:18:33 04/08/20 24 04/08/2024 urina lysis panel , auto Unknown Analyte Normal Not Available [address] [place], [place], [address], 04/08/2024 07:18:33 04/08/20 24 04/08/2024 urina lysis panel , auto Unknown Analyte Negati ve Not Available [address] [place], [place], [address], 04/08/2024 07:18:33 04/08/20 24 04/08/2024 urina lysis panel , auto Unknown Analyte Negati ve Not Available [address] [place], [place], [address], 04/08/2024 07:18:33 04/09/20 24 04/09/2024 SURGI HAILEY surgical SEE BELOW normal Surgi hailey Patho logy Repor t NAME: DRYDE N, VIRGI L PATH: [id number] DATE of : 04/[birth year] 56 Copy to: Diagn osis: Right lower calf: [place] tofib tj. SOURC E OF SPECI MEN: SKIN BIOPS Y, RIGHT LOWER CALF CLINI HAILEY INFOR MATIO N: R/O DF VS OTHER D 48.5 Gross Descr iptio n: Sen nt's name and date of verif ied. Recei gabriel in forma paula label ed with the royae nt's name and desig nated righ t lower calf is a shave biops y of skin (0.8 x 0.5 x 0.1 cm). The epide rmal surfa ce is kirkland-w honey and varie gated . The brandan n is inked blue. The speci men is trise cted and entir fortino submi tted in one casse tte label ed A1. SB 04/09 02:34 PM Micro scopi c Descr iptio n: A micro scopi c exami natio n has been perfo rmed and the resul t(s) are as noted above . FAM GARCIA M.D. Ana d Out Date: 04/11 23:10 Page 1 of 1 Not Available [facility] [address] [place] [address], [phone], 04/11/2024 23:10:45 09/06/19 25 09/05/2024 COMPL ETE BLOOD COUNT white blood cells 5.1 10*3/ uL 3.8-10 .8 normal Not Available [facility] [address] [place] [address], [address], 09/05/2024 12:26:12 09/06/19 25 09/05/2024 COMPL ETE BLOOD COUNT red blood cells 4.36 10*6/ uL 4.20-5 .80 normal Not Available [facility] [address] [place] [address], [address], 09/05/2024 12:26:12 09/06/19 25 09/05/2024 COMPL ETE BLOOD COUNT hemoglobin 13.3 g/dL 14.0-1 8.0 low Not Available [facility] [address] [place] [address], [address], 09/05/2024 12:26:12 09/06/19 25 09/05/2024 COMPL ETE BLOOD COUNT hematocrit 40.6 % 40.0-5 2.0 normal Not Available [facility] [address] [place] [address], [address], 09/05/2024 12:26:12 09/06/19 25 09/05/2024 COMPL ETE BLOOD COUNT MCV 93 fL 80-100 normal Not Available [facility] [address] [place] [address], [address], 09/05/2024 12:26:12 09/06/19 25 09/05/2024 COMPL ETE BLOOD COUNT MCH 31 pg 26-35 normal Not Available [facility] [address] [place] [address], [address], 09/05/2024 12:26:12 09/06/19 25 09/05/2024 COMPL ETE BLOOD COUNT MCHC 33 g/dL 32-36 normal Not Available [facility] [address] [place] [address], [address], 09/05/2024 12:26:12 09/06/19 25 09/05/2024 COMPL ETE BLOOD COUNT RDW 13.7 % 11.0-1 5.0 normal Not Available [facility] [address] [place] [address], [address], 09/05/2024 12:26:12 09/06/19 25 09/05/2024 COMPL ETE BLOOD COUNT MPV 9.1 fL 6.2-10 .5 normal Not Available [facility] [address] [place] [address], [address], 09/05/2024 12:26:12 09/06/19 09/05/2024 COMPL ETE BLOOD COUNT platelet count 179 10*3/ uL 150-40 0 normal Not Available [facility] [address] [place] [address], [address], 09/05/2024 12:26:12 09/06/19 25 09/05/2024 COMPL ETE BLOOD COUNT neutrophil,a bsolute 3.4 10*3/ uL 1.6-8. 4 normal Not Available [facility] [address] [place] [address], [address], 09/05/2024 12:26:12 09/06/19 25 09/05/2024 COMPL ETE BLOOD COUNT lymphocyte,a bsolute 1.1 10*3/ uL 0.4-5. 1 normal Not Available [facility] [address] [place] [address], [address], 09/05/2024 12:26:12 09/06/19 25 09/05/2024 COMPL ETE BLOOD COUNT monocyte,abs olute 0.3 10*3/ uL 0.0-1. 2 normal Not Available [facility] [address] [place] [address], [address], 09/05/2024 12:26:12 09/06/19 25 09/05/2024 COMPL ETE BLOOD COUNT eosinophil,a bsolute 0.2 10*3/ uL 0.0-0. 8 normal Not Available [facility] [address] [place] [address], [address], 09/05/2024 12:26:12 09/06/19 25 09/05/2024 COMPL ETE BLOOD COUNT basophil,abs olute 0.1 10*3/ uL 0.0-0. 3 normal Not Available [facility] [address] [place] [address], [address], 09/05/2024 12:26:12 09/06/19 25 09/05/2024 COMPL ETE BLOOD COUNT % neutrophils 66.3 % 42.0-7 8.0 normal Not Available [facility] [address] [place] [address], [address], 09/05/2024 12:26:12 09/06/19 25 09/05/2024 COMPL ETE BLOOD COUNT % lymphocytes 21.0 % 11.0-4 7.0 normal Not Available [facility] [address] [place] [address], [address], 09/05/2024 12:26:12 09/06/19 25 09/05/2024 COMPL ETE BLOOD COUNT % monocytes 6.7 % 0.0-11 .0 normal Not Available [facility] [address] [place] [address], [address], 09/05/2024 12:26:12 09/06/19 25 09/05/2024 COMPL ETE BLOOD COUNT % eosinophils 4.8 % 0.0-7. 0 normal Not Available [facility] [address] [place] [address], [address], 09/05/2024 12:26:12 09/06/19 25 09/05/2024 COMPL ETE BLOOD COUNT % basophils 1.2 % 0.0-3. 0 normal Not Available [facility] [address] [place] [address], [address], 09/05/2024 12:26:12 09/06/19 25 09/05/2024 COMPL ETE BLOOD COUNT nucleated red cells 0.0 % 0.0-0. 9 normal Not Available [facility] [address] [place] [address], [address], 09/05/2024 12:26:12 09/06/19 25 09/05/2024 COMPL ETE BLOOD COUNT nucleated RBCs, absolute 0.00 10*3/ uL not estab. normal Not Available [facility] [address] [place] [address], [address], 09/05/2024 12:26:12 09/06/19 25 09/05/2024 COMP. METAB OLIC PANEL glucose 103 mg/dL 74-100 high Not Available [facility] [address] [place] [address], [address], 09/05/2024 12:26:46 09/06/19 25 09/05/2024 COMP. METAB OLIC PANEL blood urea nitrogen 21 mg/dL 6-20 high Not Available [facility] [address] [place] [address], [address], 09/05/2024 12:26:46 09/06/19 25 09/05/2024 COMP. METAB OLIC PANEL creatinine 1.12 mg/dL 0.70-1 .20 normal Not Available [facility] [address] [place] [address], [address], 09/05/2024 12:26:46 09/06/19 25 09/05/2024 COMP. METAB OLIC PANEL BUN/creatini ne ratio 19 (calc ) 10-20 normal Not Available [facility] [address] [place] [address], [address], 09/05/2024 12:26:46 09/06/19 25 09/05/2024 COMP. METAB OLIC PANEL sodium 142 mmol/ L 136-14 5 normal Not Available [facility] [address] [place] [address], [address], 09/05/2024 12:26:46 09/06/19 25 09/05/2024 COMP. METAB OLIC PANEL potassium 4.3 mmol/ L 3.4-5. 0 normal Not Available [facility] [address] [place] [address], [address], 09/05/2024 12:26:46 09/06/19 25 09/05/2024 COMP. METAB OLIC PANEL chloride 107 mmol/ L 98-107 normal Not Available [facility] [address] [place] [address], [address], 09/05/2024 12:26:46 09/06/19 25 09/05/2024 COMP. METAB OLIC PANEL carbon dioxide 26 mmol/ L 22-31 normal Not Available [facility] [address] [place] [address], [address], 09/05/2024 12:26:46 09/06/19 25 09/05/2024 COMP. METAB OLIC PANEL anion gap 9 (calc ) 7-25 normal Not Available [facility] [address] [place] [address], [address], 09/05/2024 12:26:46 09/06/19 25 09/05/2024 COMP. METAB OLIC PANEL calcium 9.5 mg/dL 8.6-10 .2 normal Not Available [facility] [address] [place] [address], [address], 09/05/2024 12:26:46 09/06/19 25 09/05/2024 COMP. METAB OLIC PANEL total protein 7.7 g/dL 6.4-8. 3 normal Not Available [facility] [address] [place] [address], [address], 09/05/2024 12:26:46 09/06/19 25 09/05/2024 COMP. METAB OLIC PANEL albumin 4.3 g/dL 3.5-5. 2 normal Not Available [facility] [address] [place] [address], [address], 09/05/2024 12:26:46 09/06/19 25 09/05/2024 COMP. METAB OLIC PANEL globulin 3.4 1.5-4. 5 normal Not Available [facility] [address] [place] [address], [address], 09/05/2024 12:26:46 09/06/19 25 09/05/2024 COMP. METAB OLIC PANEL albumin/glob ulin ratio 1.3 (calc ) 1.1-2. 5 normal Not Available [facility] [address] [place] [address], [address], 09/05/2024 12:26:46 09/06/19 25 09/05/2024 COMP. METAB OLIC PANEL bilirubin, total 0.5 mg/dL 0.1-1. 2 normal Not Available [facility] [address] [place] [address], [address], 09/05/2024 12:26:46 09/06/19 25 09/05/2024 COMP. METAB OLIC PANEL alkaline phosphatase 87 U/L 40-129 normal Not Available [facility] [address] [place] [address], [address], 09/05/2024 12:26:46 09/06/19 25 09/05/2024 COMP. METAB OLIC PANEL AST 20 U/L 0-40 normal Not Available [facility] [address] [place] [address], [address], 09/05/2024 12:26:46 09/06/19 25 09/05/2024 COMP. METAB OLIC PANEL ALT 14 U/L 0-41 normal Not Available [facility] [address] [place] [address], [address], 09/05/2024 12:26:46 09/06/19 25 09/05/2024 COMP. METAB OLIC PANEL GFR 63 >= 60 normal NOT E New calcu latio n for GFR (CKD- EPI 2020) is formu lated witho ut race adjus tment facto rs at the [facility] menda tion of the Edi Oliveira [facility] . This calcu latio n has not been valid ated in pregn ant women . For pedia tric patie nts refer to https ://traci arguelles.jumana bhardwaj/florentin au s/LOBITOO QI/gf r_cal culat orPed Not Available [facility] [address] [place] [address], [address], 09/05/2024 12:26:46 08/23/19 24 08/23/2023 devic e check (PROC ) No observ ation record ed. [email or web address] Not Available 2023 13:49:22 08/24/19 24 08/23/2023 pacem flor[place] inter rogat ion (PROC ) No observ ation record ed. BARCODE Not Available 2023 14:22:36 08/25/19 24 08/23/2023 elect rocar diogr am No observ ation record ed. BARCODE Not Available 2023 07:40:19 11/23/19 24 11/23/2023 XR, knee, 3 view No observ ation record ed. [facility] [address], [place], [address], 11/24/2023 07:43:31 03/05/20 24 03/05/2024 elect rocar diogr am No observ ation record ed. [email or web address] [facility] [address], [place], [address], 03/05/2024 10:43:48 03/05/20 24 02/27/2024 elect rocar diogr am No observ ation record ed. BARCODE Not Available 2023 16:14:41 03/26/20 24 03/05/2024 remot e devic e inter rogat ion (PROC ) No observ ation record ed. [email or web address] Not Available 2023 15:00:50 04/16/20 24 04/16/2024 US, doppl er echoc ardio gram, w/ color flow No observ ation record ed. [facility] [address], [place], [address], 2024 08:59:33 09/06/19 25 09/05/2024 remot e devic e inter rogat ion (PROC ) No observ ation record ed. [email or web address] Not Available 2024 12:48:29 09/07/19 25 09/05/2024 elect rocar diogr am No observ ation record ed. BARCODE Not Available 2024 07:52:21 04/04/20 25 09/05/2024 pacem flor[place] ibrahim rogat ion (PROC ) No observ ation record ed. BARCODE Not Available 2024 08:05:47 Result Notes None recorded. Problems Name Problem SNOMED Code Status Onset Date Resolution Date Notes Provider Name and Address Organization Details Recorded Time Long-ter m drug therapy Active 2016 ADE HARRIS PA-C [address] [place], [address] , [facility] 7 10:08:52 Cardiac pacemake r in situ 505342621 Active 2016 ADE HARRIS PA-C [address] [place], [address] , [facility] 7 10:33:08 Neuropat hy 972085984 Completed 201509/19/2017 From Automate d Load;Pro vider: Linda Kenney;St atus: Active ROHINI INIGUEZ MD [facility] [place], [address] , [facility] 8 10:31:47 Low back pain 282665975 Completed 201509/19/2017 From Automate d Load;Pro vider: Linda Kenney;St atus: Active ROHINI INIGUEZ MD [address] [place], [address] , [facility] 8 10:31:31 Anemia 060452680 Completed 201708/03/2017 ROHINI INIGUEZ MD [facility] [place], [address] , [facility] 8 14:03:25 Hyperlip idemia 79571184 Active 2017 on atorvast atin ROHINI INIGUEZ MD [facility] [place], [address] , [facility] 8 10:32:41 Transien t cerebral ischemia 313297070 Active 2017 status post TIA 03/10/17- weakness right side of face and right hand which resolved .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 ROHINI INIGUEZ MD [address] [place] [address], [address] , [facility] 8 10:36:28 Anemia of chronic disease 401427653 Active 2017 ROHINI INIGUEZ MD [address] [place] [address], [address] , [facility] 8 14:03:31 Gastroes ophageal reflux disease 546024072 [facility] 2017 [facility] 8 16:07:49 Actinic keratosi s 863345614 Active 2017 15 TOTAL [facility] 8 16:09:58 History of hematuri a 130516716 Active [address] Keisha INIGUEZ MD [address] [place] [address], [address] , [facility] 8 10:40:41 History of calculus of kidney 401934404 Active 2017 with microsco pic hematuri a that has been followed by Dr. Keisha INIGUEZ MD [address] [place] [address], [address] , [facility] 8 10:33:25 History of malignan t neoplasm of prostate 358911611 Active 2017 total prostate ctomy 2004 ROHINI INIGUEZ MD [address] [place] [address], [address] , [facility] 8 10:32:14 History of colonosc opy 61092845570 9 Active 2017 divertic ulosis-o therwise normal. Done 07/26/17 ROHINI INIGUEZ MD [address] [place] [address], [address] , [facility] 8 10:34:28 Spinal stenosis of lumbar region 36341545 Active [address] scan January 2017.. Stenosis at L4-5 and followed by neurosur charlotte yuen seen June 2017 ROHINI INIGUEZ MD [address] [place], [address] , [facility] 8 10:40:28 Elevated blood-pr essure reading without diagnosi s of hyperten dayna 649531169 Completed 201805/01/2019 ROHINI INIGUEZ MD [address] [place], [address] , [facility] 9 08:51:08 Pain in left lower limb 309119925 Active 2018 ROHINI INIGUEZ MD [address] [place], [address] , [facility] 9 10:43:53 Pain of shoulder region 19055018 Active 2018 NADEGE SALGADO, PT [address] [place], [address] , [facility] 9 13:31:52 Shoulder girdle weakness 118953723 Active 2018 NADEGE SALGADO, PT [address] [place], [address] , [facility] 9 13:32:05 Shoulder stiff 910648157 Active 2018 NADEGE SALGADO, PT [address] [place], [address] , [facility] 9 13:32:13 Injury of tendon of the rotator cuff of shoulder 952101356 Active 2018 NADEGE SALGADO, PT [address] [place], [address] , [facility] 9 13:32:20 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 He does [place] [address] [place] [address], [address] , [facility] 9 08:51:00 Insomnia 583463580 Active 2018 ROHINI INIGUEZ MD [address] [place] [address], [address] , [facility] 9 09:10:07 Hypercoa gulabili ty state 82028172 Active Not Available [facility] 4 07:19:11 Atherosc lerosis of aorta 12357100 Active Not Available [facility] 4 07:19:27 Congesti ve heart failure 06154555 Active Not Available [facility] 4 07:19:50 Disorder of upper respirat ory system 502118431 Completed 201409/19/2017 From Automate d Load;Pro vider: Rohini Richardson;Pina tatus: Active ROHINI INIGUEZ MD [address] [place] [address], [address] [facility] 8 10:31:21 Cough 22088133 Completed 201409/19/2017 From Automate d Load;Pro vider: Rohini Richardson;S tatus: Active ROHINI INIGUEZ MD [address] [place] [address], [address] [facility] 8 10:31:42 Sick sinus syndrome 66580499 Active 2015 From Automate d Load;Pro vider: Ade Harris;Pina tatus: Active Not Available [facility] 6 23:51:43 Paroxysm al atrial fibrilla tion 419932952 Active 2015 normal Myoview stress test 11/17 with EF of 40% ROHINI INIGUEZ MD [address] [place] [address], [address] [facility] 8 10:41:04 Problem Notes Documentation Provider Name and Address Organization Details Recorded Time Cardiology Note : [facility] [address] [facility] [address], [facility] [address]REYDIO, Virgil G (id #[id number], : 1935) [facility] [address] [facility] [address] [place] [address] Encounter Summary - Progress Note Date Printed: 08/23/2023 Documents sent via fax will include the followingmessage: This fax may contain sensitive and confidential personal health information that is being sent for the sole use of the intended recipient. Unintended recipients are directed to securely destroy any materials received. You are hereby notified that the unauthorized disclosure or other unlawful use of this fax or any personal health information is prohibited. To the extent patient information contained in this fax is subject to 42 CFR Part 2, this regulation prohibits unauthorized disclosure of these records. If you received this fax in error, please visit [email or web address] to notify the sender and confirm that the information will be destroyed. If you do not have internet access, please call to notify the sender and confirm that the information will be destroyed. Thank you for your attention and cooperation. [ID:[id number]] Patient Galen Hameed (88yo, M) #[id number] 1935 Patient Demographics: Address [address] [place] [address] Work Phone Encounter Notes: Encounter Reason/Date 6 mo sae/medtronic 08/23/2023 - 09:30AM - [facility] History of Present IllnessMrPratik Hameed is an 88-year-old male with history of sick sinus syndrome, tachybradycardia syndrome S/P PPM - Medtronic. He has a history of paroxysmal atrial fibrillation managed with flecainide. He is currently on clopidogrel 75 mg daily. He has a low burden of atrial fibrillation and has therefore respectfully declined anticoagulation.He had a negative nuclear GXT in 2014. 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 He gets around primarily with a cane. He currently denies any chest pain, no shortness of breath, no PND, orthopnea or syncope. Pacemaker interrogated in the office today. Device functioning normally. 27 months to ANYI. EKG done today shows atrial paced rhythm at 74 bpm. Review of SystemsAdditionally reports:Review of Systems: Cardiac ROS as noted Non Cardiac: Negative for recent seizure or GI bleeding. Other systems reviewed, not pertinent to current illness or negative ROS as noted in the HPI Vitals Ht: 6 ft Imsnxd7308/23/2023 09:14 am Wt: 198 lbs 4 oz With sdejdrc3108/23/2023 09:19 am BMI: 26.9008/23/2023 09:19 am BP: 124/78 sitting R arm08/23/2023 09:25 am Pulse: 74 bpm08/23/2023 09:29 am RR: 16008/23/2023 09:23 am O2Sat: 95% Room Air at Rest08/23/2023 09:23 am Results/InterpretationsNone recorded Physical ExamBasic Cardio PE:HEENT: normal thyroid, no bruit, and JVP < 6. Lungs: clear to auscultation. Cardio: no murmurs or gallops and s1 normal and s2 normal. Abdomen: non tender or distended and soft, normal bowel sounds, and no bruit. Extremities: no edema. Procedure DocumentationEK lead electrocardiogram testing performed. See scanned copy for results. Assessment and Plan1. Paroxysmal atrial edquyypjunss-[id number]-Qtja score - 2EKG reviewed which shows normal sinus rhythm. He has low burden of atrial fibrillation less than 0.1%. Has respectfully declined anticoagulation. Currently on clopidogrel 75 mg daily. Medications reviewed and compliance advised. Continue with current doses. He will call for prescriptions as needed.I48.0: Paroxysmal atrial fibrillation 2. Sick sinus syndrome- S/P PPM-Medtronic...I49.5: Sick sinus syndrome 3. Cardiac pacemaker in situ-Pacemaker interrogated today. 27 months to ANYI. Device functioning normally. Continue with home pacemaker monitoring.Z95.0: Presence of cardiac pacemaker 4. Long-term drug therapy-Currently on flecainide 100 mg twice a day. EKG reviewed. No obvious evidence of drug toxicity. Continue with current doses. CMP and magnesium levels ordered ataalD05.899: Other nursing home (current) drug therapy 5. Overweight-Current BMI 26.9. Target BMI 25. FLP ordered ghegtL85.3: Overweight BODY MASS INDEX: CARE INSTRUCTIONS Discussion NotesPatient was given an opportunity and encouraged to ask questions. All questions and concerns were addressed to the best of my ability.Follow-up in 6 months with an EKG.Continue with home pacemaker monitoring Thank you for allowing us to participate in the care of your patient. If we can be of any further assistance please do not hesitate to contact us. Jamel Cherry MD, FACP, FACC, [facility] Cardiology-[facility] [phone] Return to Office JAMEL CHERRY MD for RECHECK at [facility] on 02/28/2024 at 09:30 AM to see OCHOA POWERS MD at [facility] on or around 07/26/2027 Patient Medical History: Allergies List Reviewed Allergies SULFA (SULFONAMIDE ANTIBIOTICS): Rash (Mild) - Reaction: RASH;Severity: Mild; Comment: bactrim ds;Created By: French Titus;Created Date: 01/10/2005 1:52:19 PM; Medications Reviewed Medications NameDate Source atenoloL 25 mg tabletTAKE 1 TABLET BY MOUTH TWO TIMES A DAY07/13/22 renewed DANICA CALLAWAY APRN clopidogreL 75 mg tabletTAKE ONE TABLET BY MOUTH ONCE A DAY04/21/23 renewed JAMEL CHERRY MD flecainide 100 mg tabletTAKE ONE TABLET BY MOUTH 2 TIMES A DAY07/21/23 renewed DESTIN MITCHELL MD Family HistoryReviewed Family History Daughter - Family history of cancer Father - Family history of cancer - Colon Mother - Family history of cancer - breast Past Medical HistoryReviewed Past Medical History Atrial Fibrillation:Y Cancer:Y Hiatal hernia:Y Pacemaker:Y-medtronic Vaccine HistoryReviewed Vaccines Vaccine Type Date Amt. Route Site [facility] Lot # Mfr. Exp. Date VIS VIS Given Forging Machine Operator Pneumococcal pneumococcal conjugate PCV 13 10/31/14 pneumococcal 12/11/03 DECLINES FLU SHOT/ covid vaccines x3 Electronically Signed by: JAMEL CHERRY MD SAM Maki [facility] 08/23/2023 12:40:53 Cardiology Note : [facility] [address], [facility] [address]ZKMBMJ, Virgil G (id #[id number], : 1935) [facility] [address] [place] [address] Encounter Summary - Progress Note Date Printed: 03/05/2024 Documents sent via fax will include the followingmessage: This fax may contain sensitive and confidential personal health information that is being sent for the sole use of the intended recipient. Unintended recipients are directed to securely destroy any materials received. You are hereby notified that the unauthorized disclosure or other unlawful use of this fax or any personal health information is prohibited. To the extent patient information contained in this fax is subject to 42 CFR Part 2, this regulation prohibits unauthorized disclosure of these records. If you received this fax in error, please visit [email or web address] to notify the sender and confirm that the information will be destroyed. If you do not have internet access, please call to notify the sender and confirm that the information will be destroyed. Thank you for your attention and cooperation. [ID:[id number]] Patient Galen Hameed (88yo, M) #[id number] 1935 Patient Demographics: Address [address] [place] [address] Work Phone Encounter Notes: Encounter Reason/Date 6 mo sae/medtronic 03/05/2024 - 09:00AM - [facility] History of Present IllnessWM/SSS/PPM - Medtronic. PxAF on flecainide. He is currently on clopidogrel 75 mg daily. He has a low burden of atrial fibrillation and has therefore respectfully declined anticoagulation.He had a negative nuclear GXT in 2014. 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 He gets around primarily with a cane.He currently denies any chest pain, no shortness of breath, no PND, orthopnea or syncope.Pacemaker interrogated in the office today. Device functioning normally. 20 months to ANYI.EKG done today shows atrial paced rhythm at 74 bpm. Review of SystemsAdditionally reports:Review of Systems: Cardiac ROS as noted Non Cardiac: Negative for recent seizure or GI bleeding. Other systems reviewed, not pertinent to current illness or negative ROS as noted in the HPI Vitals Ht: 6 ft10 08:41 am Wt: 193 lbs 3.2 oz With hinpxfa4403/05/2024 08:43 am BMI: 26.210 08:43 am BP: 160/84 sitting L arm03/05/2024 08:47 am Pulse: 72 bpm03/05/2024 08:51 am RR: 1410 08:43 am O2Sat: 96% Room Air at Rest03/05/2024 08:43 am Results/InterpretationsNone recorded Physical ExamGENERAL: Well-nourished well-developed. SKIN: No visible lesions, rashes, nodules. Supple to palpation. NECK: Supple. No JVD noted. CHEST: Clear to auscultation and percussion. CARD: Regular R&R. No rubs, gallops. no murmur. PMI Normal. ABDOMEN: Soft. Non-tender. No masses. No organomegaly. EXTREMITIES: No cyanosis, clubbing or edema. PSYCH: Normal mood and affect oriented x3. NEURO: No gross deficits, normal sensation. Procedure DocumentationEK lead electrocardiogram testing performed. See scanned copy for results. Assessment and Plan1. Paroxysmal atrial ozpyqsdtiaoi-LOP8JT6-Yuvo score - 2EKG reviewed which shows normal sinus rhythm. He has low burden of atrial fibrillation less than 0.1%. Has respectfully declined anticoagulation. Currently on clopidogrel 75 mg daily. Medications reviewed and compliance advised. Continue with current doses. He will call for prescriptions as needed.I48.0: Paroxysmal atrial fibrillation 2. Sick sinus syndrome- S/P PPM-Medtronic...I49.5: Sick sinus syndrome 3. Cardiac pacemaker in situ-Assessment was performed of the implanted device. Any needed adjustments and setting changes were personally supervised by me and are documented in follow -up form. The device is functioning well. The patient was instructed to continue in the device surveillance program appropriate for the device. Estimated ANYI 20 months. No significant atrial fibrillation noted.Z95.0: Presence of cardiac pacemaker DEVICE CHECK (PROC)Place of service: OFFICE Procedure code: 98508, 70035, 83690, 22314, 09300, 82914, 98347, 25055 Authorization: Medicare[place] (Medicare) NOTREQUIRED Not Required for 09930, 84552, 56071, 41527, 88783, 60204, 84694, 29578Rphgcnrxlrdqu: Standard Life (Medicare Supplement) NOTREQUIRED Not Required for 59307, 95662, 77491, 19841, 56711, 85085, 97421, 73698 4. Long-term drug therapy-Currently on flecainide 100 mg twice a day. EKG reviewed. No obvious evidence of drug toxicity. Continue with current doses. CMP and magnesium levels ordered today QTc OK.Z79.899: Other nursing home (current) drug therapy ELECTROCARDIOGRAM 5. Overweight-Current BMI 26.9. Target BMI 25.E66.3: Overweight 6. Hyperlipidemia-FLP 08-23-2023: TC 254, TG 164, HDL 42, LDL 179. Placed on rosuvastatin 20 mg in the past. FLP ordered xdvzvB19.5: Hyperlipidemia, unspecified LIPID PANEL Return to Office ELOISE WHITE MD for RECHECK at [facility] on 09/05/2024 at 09:00 AM to see OCHOA POWERS MD at [facility] on or around 07/26/2027 Patient Medical History: Allergies List Reviewed Allergies SULFA (SULFONAMIDE ANTIBIOTICS): Rash (Mild) - Reaction: RASH;Severity: Mild; Comment: bactritheresa ds;Created By: French Titus;Created Date: 01/10/2005 1:52:19 PM; Medications Reviewed Medications NameDate Source atenoloL 25 mg tabletTAKE 1 TABLET BY MOUTH TWO TIMES A DAY09/04/23 renewed DANICA CALLAWAY APRN clopidogreL 75 mg tabletTAKE ONE TABLET BY MOUTH ONCE A DAY04/21/23 renewed JAMEL CHERRY MD flecainide 100 mg tabletTAKE ONE TABLET BY MOUTH 2 TIMES A DAY07/21/23 renewed DESTIN MITCHELL MD rosuvastatin 20 mg tabletTake 1 tablet(s) every day by oral route.08/24/23 prescribed JAMEL CHERRY MD Family HistoryReviewed Family History Daughter - Family history of malignant neoplasm Father - Family history of malignant neoplasm - Colon Mother - Family history of malignant neoplasm - breast Past Medical HistoryReviewed Past Medical History Atrial Fibrillation:Y Cancer:Y Hiatal hernia:Y Pacemaker:Y-medtronic Vaccine HistoryReviewed Vaccines Vaccine Type Date Amt. Route Site [facility] Lot # Mfr. Exp. Date VIS VIS Given Forging Machine Operator Pneumococcal pneumococcal conjugate PCV 13 10/31/14 pneumococcal 12/11/03 DECLINES FLU SHOT/ covid vaccines x3 Electronically Signed by: ELOISE WHITE MD CHRISTINA NOBLE PA-C [address] [place] [address], [address], [facility] 03/06/2024 09:01:45 Cardiology Note : [address] [facility] [address]NEWINI, Virgil G (id #[id number], : 1935) [address] [place] [address] [place] [address] Encounter Summary - Progress Note Date Printed: 09/05/2024 Documents sent via fax will include the followingmessage: This fax may contain sensitive and confidential personal health information that is being sent for the sole use of the intended recipient. Unintended recipients are directed to securely destroy any materials received. You are hereby notified that the unauthorized disclosure or other unlawful use of this fax or any personal health information is prohibited. To the extent patient information contained in this fax is subject to 42 CFR Part 2, this regulation prohibits unauthorized disclosure of these records. If you received this fax in error, please visit [email or web address] to notify the sender and confirm that the information will be destroyed. If you do not have internet access, please call to notify the sender and confirm that the information will be destroyed. Thank you for your attention and cooperation. [ID:[id number]] Patient Galen Hameed (89yo, M) #[id number] 1935 Patient Demographics: Address [address] [place] [address] Work Phone Encounter Notes: Encounter Reason/Date 6 mo sae/medtronic 09/05/2024 - 09:00AM - [facility] History of Present IllnessWM/SSS/PPM - Medtronic. PxAF on flecainide. SSC4NC8-AMFn score 2. He is currently on clopidogrel 75 mg daily. He has a low burden of atrial fibrillation and has therefore respectfully declined anticoagulation. He is aware that clopidogrel is not optimal.He had a negative nuclear GXT in 2014. 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 He gets around primarily with a cane.He currently denies any chest pain, no shortness of breath, no PND, orthopnea or syncope.Pacemaker interrogated in the office today. Device functioning normally. 20 months to ANYI.EKG done today shows atrial paced rhythm at 74 bpm.Addendum: Echocardiogram performed 04-16-2024: Moderate aortic insufficiency with concentric LVH. Comparable to echocardiogram of 2017. Review of SystemsAdditionally reports:Review of Systems: Cardiac ROS as noted Non Cardiac: Negative for recent seizure or GI bleeding. Other systems reviewed, not pertinent to current illness or negative ROS as noted in the HPI Vitals Ht: 6 ft09/05/2024 08:49 am Wt: 197 lbs 14.4 oz With uvlnqqu0609/05/2024 08:49 am BMI: 26.8009/05/2024 08:49 am BP: 148/78 sitting R arm09/05/2024 08:50 am Pulse: 71 bpm09/05/2024 08:55 am RR: 1604 08:50 am O2Sat: 97%09/05/2024 08:50 am Results/InterpretationsNone recorded Physical ExamGENERAL: Well-nourished well-developed. SKIN: No visible lesions, rashes, nodules. Supple to palpation. NECK: Supple. No JVD noted. CHEST: Clear to auscultation and percussion. CARD: Regular R&R. No rubs, gallops. no murmur. PMI Normal. ABDOMEN: Soft. Non-tender. No masses. No organomegaly. EXTREMITIES: No cyanosis, clubbing or edema. PSYCH: Normal mood and affect oriented x3. NEURO: No gross deficits, normal sensation. Procedure DocumentationEKG:Atrially paced rhythm, QTc 447. Assessment and Plan1. Cardiac pacemaker in situ-Assessment was performed of the implanted device. Any needed adjustments and setting changes were personally supervised by me and are documented in follow -up form. The device is functioning well. The patient was instructed to continue in the device surveillance program appropriate for the device. Estimated ANYI 19 months. No significant atrial fibrillation noted. Discussed pacemaker management with the patient in detail.Z95.0: Presence of cardiac pacemaker PACEMAKER PROGRAMMING, DUAL LEAD (PROC) 2. Long-term drug therapy-Currently on flecainide 100 mg twice a day. EKG reviewed. No obvious evidence of drug toxicity. Continue with current doses. CMP, CBC and magnesium levels ordered today, QTc OK.Z79.899: Other nursing home (current) drug therapy 3. Paroxysmal atrial doagtjvrwsvf-UIJ0JN2-Ybhp score - 2EKG reviewed which shows normal sinus rhythm. He has low burden of atrial fibrillation less than 0.1%. Has respectfully declined anticoagulation. Currently on clopidogrel 75 mg daily. Medications reviewed and compliance advised. Continue with current doses. He will call for prescriptions as needed.I48.0: Paroxysmal atrial fibrillation 4. Sick sinus syndrome- S/P PPM-Medtronic...I49.5: Sick sinus syndrome Return to Office GUSTAVO VO MD for DERMATOLOGY VISIT at [facility] on 09/09/2024 at 11:30 AM ELOISE WHITE MD for RECHECK at [facility] on 03/11/2025 at 11:40 AM CHRISTINA NOBLE PA-C [facility]25 at 09:00 AM to see OCHOA POWERS MD at [facility] on or around 07/26/2027 Patient Medical History: Allergies List Reviewed Allergies SULFA (SULFONAMIDE ANTIBIOTICS): Rash (Mild) - Reaction: RASH;Severity: Mild; Comment: bactrim ds;Created By: French Titus;Created Date: 01/10/2005 1:52:19 PM; Medications Reviewed Medications NameDate Source atenoloL 25 mg tabletTAKE 1 TABLET BY MOUTH TWO TIMES A DAY09/04/23 zack CALLAWAY APRN clopidogreL 75 mg tabletTAKE ONE TABLET ONCE A DAYNEEDS APPT FOR FURTHER REFILLS04/24/24 prescribed ELOISE WHITE MD flecainide 100 mg tabletTAKE ONE TABLET BY MOUTH 2 TIMES A DAY08/26/24 prescribed ELOISE WHITE MD rosuvastatin 40 mg tabletTake 1 tablet(s) every day by oral route.03/05/24 prescribed ELOISE WHITE MD Family HistoryReviewed Family History Daughter - Family history of malignant neoplasm Father - Family history of malignant neoplasm - Colon Mother - Family history of malignant neoplasm - breast Past Medical HistoryReviewed Past Medical History Atrial Fibrillation:Y Cancer:Y Hiatal hernia:Y Pacemaker:Y-medtronic Vaccine HistoryReviewed Vaccines Vaccine Type Date Amt. Route Site [facility] Lot # Mfr. Exp. Date VIS VIS Given Forging Machine Operator Influenza influenza, high dose seasonal 04/08/24 0.5 mL Intramuscular Deltoid, Left [id number] Sanofi Pasteur 12/02/24 Inactivated Influenza 01/08/2021 04/08/24 Laura Smith Pneumococcal Pneumococcal conjugate PCV20, polysaccharide [id number] conjugate, adjuvant, PF 04/08/24 0.5 mL Intramuscular Deltoid, Right [id number] Pfizer, Inc 07/05/25 Pneumococcal Conjugate 10/14/2022 04/08/24 Laura Smith pneumococcal conjugate PCV 13 10/31/14 pneumococcal 12/11/03 DECLINES FLU SHOT/ covid vaccines x3 Electronically Signed by: ELOISE WHITE MD CHRISTINA NOBLE PA-C [facility] [place], [address], [facility] 09/05/2024 09:21:56 Procedures Surgical History Date Name Laterality Status Provider Name and Address Organization Details Recorded Time 09/06/19 25 EKG [place], [address], [facility] 09/05/2024 09:15:34 04/09/20 24 Shave Lesion; trunk, arm, leg completed GUSTAVO VO MD [address] [place], [address], [facility] 04/15/2024 17:16:33 04/09/20 24 Destruction Premalignant Lesion(s) completed [facility] 04/09/2024 09:12:47 04/09/20 24 Destruction BN Lesions completed [facility] 04/09/2024 09:11:40 03/05/20 24 EKG completed ELOISE WHITE MD [address] [place], [address], [facility] 02/23/2024 11:14:55 08/23/19 24 EKG completed Tamanna Zaldivar [facility] 08/23/2023 09:14:52 02/09/20 23 EKG completed Brie Jefferson [facility] 02/08/2023 11:32:01 07/12/19 23 EKG completed JAMEL CHERRY MD [address] [place], [address], [facility] 07/12/2022 14:05:45 01/13/20 22 EKG completed ADE HARRIS PA-C [address] [place], [address], [facility] 01/12/2022 10:03:28 11/06/19 22 Shave Lesion; scalp, neck, hand, foot, genitalia completed GUSTAVO VO MD [address] [place], [address], [facility] 11/10/2021 12:42:36 07/14/19 22 EKG completed ADE HARRIS PA-C [address] [place], [address], [facility] 07/14/2021 10:02:35 01/14/20 21 EKG completed DAE HARRIS PA-C [address] [place], [address], [facility] 01/13/2021 10:03:22 07/22/19 21 EKG completed ADE HARRIS PA-C [address] [place], [address], [facility] 07/22/2020 12:07:10 01/22/20 20 EKG completed JAMEL CHERRY MD [address] [place], [address], [facility] 01/22/2020 10:33:51 06/27/19 20 EKG completed ADE HARRIS PA-C [address] [place], [address], [facility] 06/27/2019 10:18:11 05/24/20 19 PT Therapeutic Exercise completed NADEGE SALGADO, PT [address] [place], [address], [facility] 05/24/2019 13:23:35 05/10/20 19 PT Therapeutic Exercise completed NADEGE SALGADO, PT [address] [place], [address], [facility] 05/10/2019 16:42:43 04/19/20 19 PT Therapeutic Exercise completed NADEGE SALGADO, PT [address] [place], [address], [facility] 04/19/2019 13:30:18 04/05/20 19 PT Therapeutic Exercise completed NADEGE SALGADO, PT [address] [place], [address], [facility] 04/05/2019 17:15:22 03/28/20 19 PT Therapeutic Exercise completed NADEGE SALGADO, PT [address] [place], [address], [facility] 03/28/2019 13:08:23 03/22/20 19 PT Therapeutic Exercise completed NADEGE SALGADO, PT [address] [place], [address], [facility] 03/22/2019 18:12:35 03/12/20 19 PT Therapeutic Exercise completed NADEGE SALGADO, PT [address] [place], [address], [facility] 03/12/2019 14:54:01 03/05/20 19 PT Therapeutic Exercise completed ELOISE DALE II, PT, DPT [address] [place], [address], [facility] 03/05/2019 15:30:57 02/29/20 19 PT Therapeutic Exercise completed NADEGE SALGADO, PT [address] [place], [address], [facility] 02/28/2019 19:25:15 02/20/20 19 PT Therapeutic Exercise completed NADEGE SALGADO, PT [address] [place], [address], [facility] 02/19/2019 12:55:57 02/13/20 19 Injection Joint/Bursa, Major completed SARAN HOLLINGSWORTH MD [address] [place], [address], [facility] 02/12/2019 11:03:21 02/13/20 19 PT Therapeutic Exercise completed NADEGE SALGADO, PT [address] [place], [address], [facility] 02/12/2019 13:39:16 02/06/20 19 PT Evaluation - Low Complexity completed NADEGE SALGADO, PT [address] [place], [address], [facility] 02/05/2019 13:24:38 02/06/20 19 PT Therapeutic Exercise completed NADEGE SALGADO, PT [address] [place], [address], [facility] 02/05/2019 13:24:51 12/26/19 19 EKG completed ADE HARRIS PA-C [address] [place], [address], [facility] 12/25/2018 10:59:12 09/27/19 19 Destruction Premalignant Lesion(s) completed Laura Portillo [facility] 09/26/2018 09:55:21 06/26/19 19 EKG completed ADE HARRIS PA-C [address] [place], [address], [facility] 06/26/2018 13:05:49 01/02/20 18 EKG completed ADE HARRIS PA-C [address] [place], [address], [facility] 01/01/2018 11:30:12 09/20/19 18 Destruction Premalignant Lesion(s) completed Laura Portillo [facility] 09/19/2017 11:05:25 07/04/19 18 EKG completed ADE HARRIS PA-C [address] [place], [address], [facility] 07/04/2017 10:59:38 06/20/19 18 Destruction Premalignant Lesion(s) completed Laura Portillo [facility] 06/20/2017 11:02:00 03/21/20 17 Echocardiogram completed ROHINI CALDERON MD [address] [place], [address], [facility] 03/21/2017 12:52:30 01/03/20 17 EKG completed ADE HARRIS PA-C [address] [place], [address], [facility] 01/02/2017 11:31:22 07/05/19 17 EKG completed ADE HARRIS PA-C [address] [place], [address], [facility] 07/05/2016 10:41:16 Imaging Results None recorded. Procedure Notes None recorded. 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 [employer] Serial Number Lot Number Status Provider Name and Address Organization Details Recorded Time medtronic FDA [id number] [facility] 05/03/2018 13:43:59 Allergies Allergen ID Allergen Name Allergen Category Reaction Reaction Severity Criticality Documentation Date Start Date Code Code System Note Provider Name and Address Organization Details Recorded Time 884526 Substance with sulfonami de structure and antibacte rial mechanism of action (substanc e) medicatio n rash mild Not available 04/29/20162004 09893 8003 SNOMED React ion: RASH; Sever ity: Mild; Comme nt: bactr im ds;Cr eated By: French mattson Date: 005 1:52: 19 PM; Not Available [facility] 6 04:00:35 Medications Name Sig Start Date Stop Date Status Note LastModified by Organization Details LastModified Time atorvasta tin 80 mg tablet Take 1 tablet every day by oral route. 04/19 completed Not Available Not Available Not Available atorvasta tin 20 mg tablet Take 1 tablet every day by oral route. 01/13 completed Not Available Not Available Not Available Neurontin 300 mg capsule Three times a day 01/02 completed Duration : 30 days;Ins truction s: take one po qhs x 3 days, then one bid x 3 days, then one tid thereaft er;Frequ ency: tid;Medi cation Descript ion: gabapent in; Dosage:1 ; Route:or al; refills: 5; Quantity :90 capsule Not Available Not Available Not Available atenolol 25 mg tablet TAKE 1 TABLET BY MOUTH TWO TIMES A DAY 2024 active Not Available Not Available Not Avai lable Zithromax Z-Marcial 250 mg tablet TAKE 2 TABLETS (500 MG) BY ORAL ROUTE ONCE DAILY FOR 1 DAY THEN 1 TABLET (250 MG) BY ORAL ROUTE ONCE DAILY FOR 4 DAYS 09/26 completed Not Available Not Available Not Available clopidogr el 75 mg tablet TAKE ONE TABLET ONCE A DAYNEE DS APPT FOR FURTHER REFILLS* * 2023 active Not Available Not Available Not Avai lable Tessalon Perles 100 mg capsule Take 1 capsule 3 times a day by oral route for 10 days. 09/26 completed Not Available Not Available Not Available trazodone 100 mg tablet Take 1 tablet every day by oral route as needed. 01/21 completed Not Available Not Available Not Available flecainid e 100 mg tablet TAKE ONE TABLET BY MOUTH 2 TIMES A DAY 2024 active Not Available Not Available Not Avai lable Lovenox 80 mg/0.8 mL subcutane ous syringe Inject 80 mg twice a day by subcutan eous route as directed for 3 days. 09/19 completed Not Available Not Available Not Available monteluka st 10 mg tablet Take 1 tablet every day by oral route for 30 days. 09/26 completed Not Available Not Available Not Available aspirin 81 mg tablet Daily 03/16 completed Duration : 30 days;Ignacio quency: daily;Me dication Descript ion: aspirin; Dosage:1 ; refills: 0 Not Available Not Available Not Available naproxen 500 mg tablet Take 1 tablet twice a day by oral route as needed. 04/19 completed Not Available Not Available Not Available rosuvasta tin 20 mg tablet Take 1 tablet every day by oral route. 04/08 completed Not Available Not Available Not Available rosuvasta tin 40 mg tablet Take 1 tablet every day by oral route. 2023 active Not Available Not Available Not Avai lable Golytely 236 gram-22.7 4 gram-6.74 gram-5.86 gram oral solution DIRECTED 09/19 completed Not Available Not Available Not Available Flonase Allergy Relief 50 mcg/actua tion nasal spray,marco pension 2 sprays per nostril daily 03/14 completed Not Available Not Available Not Available Vitals Date Recorded Body height Body mass index (BMI) Body weight Provider Name and Address Organization Details Last Updated DateTime 06/13/2024 182.88 cm 25.9 kg/m2 90103.14 g Laura Luis [facility] 06/13/2024 15:04:59 Date Recorded Body height Body mass index (BMI) Body weight Respiratory rate Oxygen saturation Oxygen saturation in Arterial blood by Pulse oximetry Heart rate Systolic blood pressure Diastolic blood pressure Provider Name and Address Organization Details Last Updated DateTime 182.88 cm 26.9 kg/m2 59954.6 9 g 16 /min 95 % 95 % 74 /min 124 mm[Hg] 78 mm[Hg] Tamanna Zaldivar [facility] 09:25:18 Date Recorded Body height Body mass index (BMI) Body weight Heart rate Respiratory rate Oxygen saturation Oxygen saturation in Arterial blood by Pulse oximetry Systolic blood pressure Diastolic blood pressure Provider Name and Address Organization Details Last Updated DateTime 5 182.88 cm 26.8 kg/m2 21823.9 3 g 71 /min 16 /min 97 % 97 % 148 mm[Hg] 78 mm[Hg] [facility] 5 08:50:15 Date Recorded Body height Body mass index (BMI) Body weight Oxygen saturation Oxygen saturation in Arterial blood by Pulse oximetry Respiratory rate Heart rate Systolic blood pressure Diastolic blood pressure Provider Name and Address Organization Details Last Updated DateTime 4 182.88 cm 26.2 kg/m2 66375.0 5 g 96 % 96 % 14 /min 72 /min 160 mm[Hg] 84 mm[Hg] [facility] 08:47:18 Date Recorded Body height Body mass index (BMI) Body weight Body temperature Respiratory rate Heart rate Oxygen saturation Oxygen saturation in Arterial blood by Pulse oximetry Systolic blood pressure Diastolic blood pressure Provider Name and Address Organization Details Last Updated DateTime 4 182.88 cm 25.9 kg/m2 77954.1 4 g 97.3 [degF] 16 /min 86 /min 96 % 96 % 134 mm[Hg] 82 mm[Hg] Laura Smith [facility] 4 09:15:45 Social History Question Answer Notes LastModified by Organizat ion Details LastModified Time Tobacco Smoking Status Former Smoker Brie Paulino [facility] 07/04/2016 08:22:44 What Is Your Level Of Caffeine Consumption? Moderate [email or web address] Information not available 04/08/2024 How Much Tobacco Do You Chew? None Information not available 01/16/2019 When Did You Quit Smoking? 16+yearssince lastcigarette Information not available 07/04/2017 Live Alone Or With Others? With Others Information not available 01/02/2017 Marital Status EMILY [email or web address] Informatio n not available 04/19/2017 What Was The Date Of Your Most Recent Tobacco Screening? 09/05/2024 [email or web address] Information not available 09/05/2024 How Many Children Do You Have? 3 [email or web address] Information not available 07/14/2021 What Is Your Relationship Status? [email or web address] Information not available 07/14/2021 How Much Tobacco Do You Smoke? 0.25 PPD Information not available 09/19/2017 How Many Years Have You Smoked Tobacco? 30 Information not available 09/19/2017 Have You Recently Traveled Abroad? No [email or web address] Information not available 07/14/2021 Sex: Unknown Functional Status Question Answer Note LastModified by Organizat ion Details LastModified Time Do you use any illicit or recreational drugs? No Information not available 04/08/2024 Do you or have you ever used any other forms of tobacco or nicotine? No [email or web address] Information not available 07/12/2022 What is your level of alcohol consumption? None [email or web address] Information not available 04/08/2024 Do you or have you ever used smokeless tobacco? Never used smokeless tobacco Information not available 01/16/2019 Are you currently employed? No Retired [email or web address] Information not available 04/08/2024 What is your occupation? sales [employer] Information not available 07/04/2016 Do you or have you ever used e-cigarettes or vape? Never used electronic cigarettes Information not available 01/16/2019 Mental Status None recorded. Family History Relationship Description Onset Age of this Age Resolved Age Notes LastModified by Organization Details LastModified Time Daughter Family history of malignant neoplasm gfishter Not available 2016 10:02:19 Father Family history of malignant neoplasm Colon gfishter Not available 2016 10:02:43 Mother Family history of malignant neoplasm breast gfishter Not available 2016 10:02:54 Medical History Condition Response Pacemaker Y Atrial Fibrillation Y Hiatal hernia Y High Cholesterol N Hyperlipidemia N Cancer Y Hypertension N Immunizations Vaccine Type Date Status Note Provider Name and Address Organization Details Recorded Time pneumococcal, unspecified formulation 12/11/19 04 completed Laura raymond [facility] 03/16/2017 12:26:54 Pneumococcal conjugate PCV 13 11/01/19 15 completed Laura raymond [facility] 03/16/2017 12:27:15 Pneumococcal conjugate PCV20, polysaccharide [id number] conjugate, adjuvant, PF 04/08/20 24 [place], [address], [facility] 04/08/2024 10:09:45 Tdap 04/08/20 cancelled patient objection CHRISTINA NOBLE PA-C [address] [place], [address], [facility] 04/08/2024 10:09:45 zoster recombinant 04/08/20 24 cancelled patient objection CHRISTINA NOBLE PA-C [address] [place], [address], [facility] 04/08/2024 10:09:45 Influenza, high-dose, trivalent, PF 04/08/20 completed CHRISTINA NOBLE PA-C [address] [place], [address], [facility] 04/08/2024 10:09:45 Past Encounters Encounter ID Performer Location Encounter Start Date Encounter Closed Date Diagnosis/Indication Diagnosis SNOMED-CT Code Diagnosis ICD10 Code Diagnosis Note [id number] ADE HARRIS PA-C CARDIOLOG Y [address] [place],[address] [place] [address] 07/05/2016 09:36:43 07/06/2016 09:42:08 Atrial fibrillation 66214148 I48.91 Paroxysmal atrial fibrillation 495438433 I48.0 Sick sinus syndrome 3608 3008 I49.5 Long-term drug therapy 993159720 Z79.899 Cardiac pa cemflorida in situ 306067737 Z95.0 [id number] [facility] [address] 09/05/2016 16:10:08 09/05/2016 16:10:08 [id number] ADE HARRIS PA-C CARDIOLOG Y [address] [place],[address] [place] [address] 01/02/2017 10:10:56 01/02/2017 11:48:05 Sick sinus syndrome 08229667 I49.5 Paroxysmal atrial fibrillation 560068253 I48.0 Cardiac pa cemaker in situ 017799935 Z95.0 Long-term drug therapy 641986098 Z79.892 [id number] ROHINI INIGUEZ MD [address] [place] [address] 01/02/2017 13:19:49 01/02/2017 14:10:53 Low back pain 930420094 M54.5 CT SCAN LOW BACKrefer to neurosurge ryhe is not gong to continue to take the gabapentin his he does not really feel is beneficial .I told him that I do not think his foot drop is reversible by would like to do the above studies and get neurosurge ry's opinion. A brace might be beneficial . [id number] STEPHAN VELAZQUEZ MD [facility]G [facility] [address] [place] [address] 01/17/2017 12:29:48 01/23/2017 15:19:47 Spinal stenosis of lumbar region 59023579 M48.06 -CT was reviewed. The patient apparently has severe L4-5 stenosis based on the CT scan. Treatment options were reviewed with the patient. Overall, his quality of life is pretty good at the moment. Continues to work full-time and have regular activity. He takes care of the form including mowing the grass and weed eating without difficulty . I think his symptoms are relatively mild even though his imaging findings appear to be substantia l. In spite of of the weakness in the left foot which appears to be stable, I would elect further observatio n. In the event that he were to have progressiv e symptoms that I would proceed with a CT myelogram to further evaluate the lumbar spine. Plan to follow-up for recheck in 4 months. 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 has a fup with . asymptomat ic at this time. 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 He did have a positive cooguard but never had colonoscop y. We will do follow-up studies today. Occult blo od detected in feces 45994280 R19.5 Cologuard was positive in March. He was to have a colonoscop y but he never did Hyperlipidemia 77282572 E78.5 on atorvastat in 20 mg. Will get alt, ast, lipid profile. Actinic keratosis 869417 007 L57.0 x1 Skin lesion 61557508 L98 .9 irritated polyploid area right forehead treated with ln2 [id number] BRIJESH FAY PA-C [facility] [address] [place] [address] 06/20/2017 12:29:31 06/22/2017 09:11:17 Spinal stenosis of lumbar region 90404513 M48.061 82M with L4-5 stenosis as seen on CT scan. He is unable to get a MRI due to pacemaker. His DF strength is unchanged from the previous visit, objectivel y and subjective ly. Being that the patients symptoms are not affecting his quality of life, it is reasonable to continue to monitor. If surgery was to be entertaine d, we would need to have a CT Myelogram. Worsening weakness, developmen t of severe leg pain, or cauda equina symptoms would warrant further imaging. We will have the patient return to office for a recheck in 3 months. Pt agrees with this plan. Pt was seen and examined by myself and by Dr. Velazquez who agrees with above. [id number] ADE HARRIS PA-C CARDIOLOG Y [address] ,[address] [place] [address] 07/04/2017 10:00:34 07/04/2017 14:01:14 Paroxysmal atrial fibrillation 343730167 I48.0 Sick sinus syndrome 3608 3008 I49.5 Cardiac pa cemaker in situ 290191250 Z95.0 Transient cerebral ischemia 254921273 G45.9 [id number] OCHOA POWERS MD SURGERY SCHEDULE [address] [place] [address] 07/26/2017 08:06:30 07/26/2017 08:07:40 [id number] ROHINI INIGUEZ MD [facility] [address] [address] 09/19/2017 09:34:11 09/19/2017 11:16:08 Adult health examination 487932261 Z00.00 discussed with him getting the shingles shot-the new one. I would suggest one of the pharmacies . Anemia of chronic disease 450187144 D63.8 workup was done 08/03/17. H&H was stable at 13.4/38.1. Ferritin was normal. TIBC was low and consistent with anemia chronic disease. B12 and folate were normal. Recent colonoscop y is also normal. Transient cerebral ischemia 635915519 G45.9 asymptomat ic Hyperlipidemia 69304408 E78.5 on atorvastat in 20 mg-takes a half per day. ALT and AST were normal in 08/03/17. LDL was 92. 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 He's asymptomat ic this time. 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 However, his quality of life remains very good. Continues to work. No pain is reported. No bowel or bladder symptoms. No signs or symptoms of cauda equina syndrome. Educated about the underlying problem and the potential for progressio n in the future. I would advocate that he continue to work with a chiropract or given his early response. We will order him a foot brace for the left foot for his foot drop. Plan to see back in 6 months to reassess. If he has progressiv e symptoms then we would proceed with a CT myelogram as he is not able to do an MRI. [id number] ROHINI INIGUEZ MD [facility] [address] [place] [address] 10/24/2017 14:16:13 10/24/2017 15:41:52 Elevated blood-pressure reading without diagnosis of hypertension 735922643 R03.0 bp is controlled on no medication [id number] ADE HARRIS PA-C CARDIOLOG Y [address] [place] [address] 01/01/2018 10:11:14 01/01/2018 11:33:51 Paroxysmal atrial fibrillation 312160876 I48.0 Sick sinus syndrome 3608 3008 I49.5 Cardiac ilda reddy in situ 891944995 Z95.0 Transient cerebral ischemia 587618829 G45.9 [id number] LINDA KENNEY PA-C [address] [facility] [place] [place] [address] 01/26/2018 15:00:28 01/26/2018 16:10:18 Allergic rhinitis 25133282 J30.9 symptoms c/w allergic rhinitis. start zyrtec otc daily and flonase as directed. if not improving over the next week or if symptoms of URI develop, rtc. [id number] LINDA KENNEY PA-C [address] [place] [address] 02/12/2018 13:23:09 02/12/2018 15:14:00 Diarrhea 77175400 R19.7 has had loose to watery stool x 10 days. check labs and stool studies. continue bland diet and push fluids. start a probiotic daily. further tx recs to follow after reviewing lab results. [id number] VIRGIL ROQUE PA-C [address] [place] [address] 03/14/2018 08:13:43 03/14/2018 09:23:46 Hyperlipidemia 20690419 E78.5 Anemia 199927580 D64.9 stable Paroxysmal atrial fibrillation 173562452 I48.0 followed by cardiology [id number] STEPHAN VELAZQUEZ MD [facility]OSURG [facility] [address] [place] [address] 03/27/2018 08:23:21 03/30/2018 10:25:57 Spinal stenosis of lumbar region 24740373 M48.061 Mr. Hameed presents with stable left greater than right bilateral foot drop. He has no symptoms of cauda equina or neurogenic claudicati on. He continues to do quite well with his foot brace chiropract ic adjustment s. He continues to enjoy good quality of life at this time. Plan to see him back in 6 months to reassess. she have worsening ankle weakness and/or signs of radiculopa thy, would consider a CT myelogram at that time. Pacemaker cannot have an MRI. He knows to call the office in the meantime with any acute changes. He is happy with this plan. [id number] VIRGIL ROQUE PA-C [address] [place] [address] 04/11/2018 09:50:50 04/11/2018 11:16:21 Adult health examination 937732916 Z00.00 Sick sinus syndrome 3608 3008 I49.5 Cardiac pa maureen in situ 726549115 Z95.0 [id number] ADE HARRIS PA-C CARDIOLOG Y [address] [place] [address] 06/26/2018 09:56:43 06/26/2018 13:11:34 Paroxysmal atrial fibrillation 601288036 I48.0 Sick sinus syndrome 3608 3008 I49.5 [id number] CHRISTINA NOBLE PA-C [address] [place] [address] 06/26/2018 12:56:58 06/26/2018 15:45:29 Seasonal allergic rhinitis 661058313 J30.2 below medication . 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 Weakness on the left is more profound. Stable over the last 2 years. Cannot get MRI because of a pacemaker. Indication s to get a CT myelogram remain worsening symptoms, pain, evidence of cauda equina syndrome. Unlikely to change even with aggressive surgical interventi on at this point with stable symptoms over 2 years. We will order a new orthotic for the left foot. Educated about cauda equina syndrome. Contact our clinic as needed in the future. [id number] ROHINI INIGUEZ MD [address] [place] [address] 09/26/2018 08:12:39 09/26/2018 10:07:35 Adult health examination 515156882 Z00.00 discussed with him getting the shingles shot-the new one. I would suggest one of the pharmacies . Elevated blood-pressure reading without diagnosis of hypertension 683361672 R03.0 same thing occurred last year. In follow-up and was normal. I will have him check his blood pressure over the next month and come back and see me. History of malignant neoplasm of prostate 388244471 Z85.46 with history of total prostatect zackery Anemia of chronic disease 070357819 D63.8 Transient cerebral ischemia 110437834 G45.9 asymptomat ic Hyperlipidemia 26944880 E78.5 currently is off of atorvastat in- HE WILL RESTART THIS AND WE WILL RECHECK LABS IN ONE MONTH. Actinic keratosis 007 L57.0 X13 [id number] ROHINI INIGUEZ MD [facility] [address] [place] [address] 10/26/2018 09:09:03 10/26/2018 10:43:04 Hyperlipidemia 13472948 E78.5 he restarted the atorvastat in 20 mg- we will ck lipid profile, alt and ast. Elevated blood-pressure reading without diagnosis of hypertension 961514208 R03.0 he brought in several bp readings that were all nml. only 3 elevated systolic out of 35 readings.m ax systolic 147. continue to ck periodical ly. Anemia 309910993 D64.9 stable Spinal gena nosis of lumbar region 26342057 M48.[address]Phillip cueva - Pain in le ft lower limb 143252884 M79.605 with weakness.l eft leg pain and weakness due to claudicati ons which have been evaluated by Dr.PHillip sotero salcedo-heber trent. the next step would be ct mylogram which he is not ready at this time. [id number] ADE HARRIS PA-C CARDIOLOG Y [address] ,[address] [place] [address] 12/25/2018 09:46:27 12/25/2018 11:08:48 Paroxysmal atrial fibrillation 462104766 I48.0 Sick sinus syndrome 3608 3008 I49.5 Cardiac ilda reddy in situ 366627007 Z95.0 [id number] ROHINI INIGUEZ MD [facility] [address] [place] [address] 01/16/2019 14:12:50 01/16/2019 14:37:04 Pain of right shoulder joint 1019497673 6935383 M25.511 refer to PT- Pain of ri ght elbow joint 7616571462 2312106 M25.521 suggested 3 advil 200 mg 3x a day refer to physical therapy. if this does not get better, we will get xray. suggested tennis elbow pain. [id number] NADEGE SALGADO, PT PHYSICAL THERAPY / HAND THERAPY [facility] [address] [place] [address] 02/05/2019 08:41:58 02/05/2019 15:24:51 Pain of shoulder region 95141406 M25.511 Injury of tendon of the rotator cuff of shoulder 876001382 S46.001D Shoulder g irdle weakness 935890627 M99.07 Shoulder stiff 173534334 M25.975 [id number] NADEGE SALGADO, PT PHYSICAL THERAPY / HAND THERAPY [facility] [address] [place] [address] 02/12/2019 08:34:15 02/12/2019 17:09:00 Injury of tendon of the rotator cuff of shoulder 993624472 S46.001D Shoulder stiff 353378492 M25.611 Shoulder g irdle weakness 789843222 M99.07 [id number] SARAN HOLLINGSWORTH MD ORTHOPEDI [facility] [address] [place] [address] 02/12/2019 10:08:27 02/13/2019 10:03:21 Rotator cuff tear arthropathy 871759293 S46.011A [id number] NADEGE SALGADO, PT PHYSICAL THERAPY / [facility]APY [facility] [address] [place] [address] 02/19/2019 07:11:17 02/19/2019 12:59:40 Injury of tendon of the rotator cuff of shoulder 061752172 S46.001D Pain of sh oulder region 54144961 M25.511 Shoulder g irdle weakness 152637547 M99.07 [id number] NADEGE SALGADO, PT PHYSICAL THERAPY / [facility] [place] [address] 02/28/2019 07:43:28 03/01/2019 14:38:45 Injury of tendon of the rotator cuff of shoulder 214782254 S46.001D Shoulder g irdle weakness 369057754 M99.07 Pain of oulder region 35499077 M25.437 [id number] ELOISE DALE II, PT, DPT PHYSICAL THERAPY / HAND THERAPY [facility] [place] [address] 03/05/2019 09:29:24 03/05/2019 15:34:24 Shoulder girdle weakness 306614738 M99.07 Injury of tendon of the rotator cuff of shoulder 052015337 S46.001D Pain of sh oulder region 71752333 M25.648 [id number] NADEGE SALGADO, PT PHYSICAL THERAPY / [facility]APY [facility] [place] [address] 03/12/2019 07:42:35 03/12/2019 15:09:17 Injury of tendon of the rotator cuff of shoulder 837334976 S46.001D Shoulder g irdle weakness 404842264 M99.07 Pain of oulder region 27554538 M25.004 [id number] NADEGE SALGADO, PT PHYSICAL THERAPY / [facility] [place] [address] 03/22/2019 07:20:07 03/25/2019 07:27:25 Injury of tendon of the rotator cuff of shoulder 683574989 S46.001D Shoulder g irdle weakness 173592488 M99.07 Shoulder stiff 567787320 M25.611 Pain of oulder region 78899963 M25.534 [id number] NADEGE SALGADO, PT PHYSICAL THERAPY / [facility]Y [facility] [place] [address] 03/28/2019 08:00:14 03/28/2019 14:30:37 Injury of tendon of the rotator cuff of shoulder 510900828 S46.001D Shoulder g irdle weakness 679053634 M99.07 Pain of sh oulder region 29242611 M25.561 [id number] NADEGE SALGADO, PT PHYSICAL THERAPY / [facility] [address] [place] [address] 04/05/2019 07:28:17 04/08/2019 08:59:13 Injury of tendon of the rotator cuff of shoulder 070961556 S46.001D Pain of sh oulder region 26607473 M25.511 Shoulder g irdle weakness 860150609 M99.07 Shoulder stiff 360148751 M25.641 [id number] NADEGE SALGADO, PT PHYSICAL THERAPY / HAND THERAPY [facility] [address] [place] [address] 04/19/2019 08:01:34 04/19/2019 15:19:08 Injury of tendon of the rotator cuff of shoulder 020267714 S46.001D Shoulder g irdle weakness 380102419 M99.07 Shoulder stiff 624399051 M25.611 Pain of sh oulder region 27114858 M25.677 [id number] ROHINI INIGUEZ MD [facility] [address] [place] [address] 05/01/2019 07:28:47 05/01/2019 10:33:32 Adult health examination 414174554 Z00.00 AWV - discussed with him getting the shingles shot-the new one. I would suggest one of the pharmacies . HE DECLINES THE FLU SHOT. HE WILL MAKE APPT FOR HIS EYE EXAM- Labile hyp ertension due to being in a clinical environment 016861229 I15.8 this has been evaluated on several occ with nml bp at home but elevated in the office. He does not have hypertensi on. next time he comes in, he will bring his cuff in to compare with ours. Anemia of chronic disease 089237044 D63.8 WE WILL CK A CBC TODAY Hyperlipidemia 69681290 E78.5 he just had a lipid panel 04-29-19 with ldl of 87. He is taking 1/2 of lipitor 20 mg. . I want his ldl under 70 with hx of tia. I want him to take a whole- 20 mg. we will recheck his lipids at his gme in september. Paroxysmal atrial fibrillation 232446310 I48.0 followed by cardiology Sick sinus syndrome 3608 3008 I49.5 followed by cardiology Transient cerebral ischemia 786038921 G45.9 asymptomat ic Insomnia 387060924 G47.0 0 TX WITH TRAZADONE 100 MG. TAKE 1-2 AT HS FOR SLEEP. START OFF WITH 1, IF THAT DOES NOT WORK GO TO 1.5 TAB- IF THAT DOES NOT WORK , TAKE 2 TABLETS. HE CAN ADD BENADRYL OR MELATONIN IF NEEDED. [id number] NADEGE SALGADO, PT PHYSICAL THERAPY / HAND THERAPY [facility] [address] [place] [address] 05/10/2019 07:54:42 05/13/2019 07:26:51 Injury of tendon of the rotator cuff of shoulder 736345560 S46.001D Shoulder g irdle weakness 214543149 M99.07 Pain of oulder region 91697516 M25.783 [id number] NADEGE SALGADO, PT PHYSICAL THERAPY / [facility]APY [facility] [address] [place] [address] 05/24/2019 08:03:34 05/24/2019 14:12:57 Injury of tendon of the rotator cuff of shoulder 753712428 S46.001D Shoulder g irdle weakness 580739507 M99.07 Pain of oulder region 26438119 M25.374 [id number] ADE HARRIS PA-C CARDIOLOG Y [address] [place] [place] [address] 06/27/2019 09:51:27 06/27/2019 12:15:05 Paroxysmal atrial fibrillation 127715822 I48.0 Sick sinus syndrome 3608 3008 I49.5 Cardiac pa cemaker in situ 102210761 Z95.0 normal function with estimated longevity 6.5 years. Findings discussed with the patient. [id number] JAMEL CHERRY MD CARDIOLOG Y [address] [place],[facility] [place] [address] 01/22/2020 09:19:58 01/22/2020 10:40:10 Paroxysmal atrial fibrillation 432405324 I48.0 [id number] sc score - 2 EKG reviewed. Currently normal sinus rhythm. Medication s reviewed. Compliance advised. Refill prescripti ons given. Sick sinus syndrome 3608 3008 I49.5 S/P PPM-Medtro aydin - noted Cardiac ilda reddy in situ 766755391 Z95.0 pacemaker interrogat ed at home on 01/02/20. Device functionin g normally. 5.5 years to ANYI Essential hypertension 55026338 I10 I recommende d he monitors blood pressure and decrease sodium intake to less than 2000 mg a day. Target blood pressure < 140/90 Long-term drug therapy 687174916 Z79.899 currently on flecainide . QTC/QRS intervals are normal limits. CBC, CMP and magnesium levels ordered today. [id number] ADE HARRIS PA-C CARDIOLOG Y [address] [place],[address] [place] [address] 07/22/2020 10:21:56 07/22/2020 15:37:39 Paroxysmal atrial fibrillation 271454585 I48.0 low burden less than 0.1%. Has respectful ly declined anticoagul ation Sick sinus syndrome 3608 3008 I49.5 s/p pacemakere stimated longevity 5 years. Continue following in our device clinic Cardiac ilda reddy in situ 184237662 Z95.0 normal function with estimated longevity 5 years. Findings discussed with the patient. Long-term drug therapy 921847272 Z79.899 no evidence of flecainide toxicity on EKG. Findings discussed with the patient. Recent labs reviewed and discussed with the patient. Patient understand s the necessity for semiannual follow-up with surveillan ce EKG and labs while utilizing chronic antiarrhyt hmics. Labile hyp ertension due to being in a clinical environment 050759838 I15.8 mild elevated blood pressures today discussed with the patient. He monitors them closely at home and reports they're always less than 140 systolic. He attributes it to white coat syndrome [id number] ADE HARRIS PA-C CARDIOLOG Y [address] [place],[address] [place] [address] 01/13/2021 09:23:19 01/13/2021 10:11:12 Paroxysmal atrial fibrillation 963125377 I48.0 low burden less than 0.1%. Has respectful ly declined anticoagul ation Sick sinus syndrome 3608 3008 I49.5 s/p pacemakere stimated longevity 4.5 years. Continue following in our device clinic Cardiac ilda reddy in situ 951936310 Z95.0 device interrogat ion from our device clinic remote transmissi on reviewed and discussed with the patient. 0% burden of atrial fibrillati on. Estimated longevity on pacemaker generator 4.5 years Long-term drug therapy 215179451 Z79.899 no evidence of flecainide toxicity on EKG. Findings discussed with the patient. Recent labs reviewed and discussed with the patient. Patient understand s the necessity for semiannual follow-up with surveillan ce EKG and labs while utilizing chronic antiarrhyt hmics. Labile hyp ertension due to being in a clinical environment [id number] I15.8 mild elevated blood pressures today discussed with the patient. He monitors them closely at home and reports they're always less than 140 systolic. He attributes it to white coat syndrome [id number] ADE HARRIS PA-C CARDIOLOG Y [address] ,[address] [place] [address] 07/14/2021 08:49:28 07/14/2021 11:26:12 Overweight 650852606 E66.3 Paroxysmal atrial fibrillation 482819074 I48.0 low burden less than 0.1%. Has respectful ly declined anticoagul ation Sick sinus syndrome 3608 3008 I49.5 s/p pacemakere stimated longevity 4 years. Continue following in our device clinic Cardiac ilda reddy in situ [id number] Z95.0 device interrogat ion from our device clinic remote transmissi on reviewed and discussed with the patient. 0% burden of atrial fibrillati on. Estimated longevity on pacemaker generator 4 years Long-term drug therapy 603593994 Z79.899 no evidence of flecainide toxicity on EKG. Findings discussed with the patient. Recent labs reviewed and discussed with the patient. Patient understand s the necessity for semiannual follow-up with surveillan ce EKG and labs while utilizing chronic antiarrhyt hmics. [id number] CHRISTINA NOBLE PA-C [facility] [address] [place] [address] 10/27/2021 10:55:44 10/27/2021 11:28:15 Dysplastic nevus of skin 582403387 D22.9 Referral to dermatolog y [id number] GUSTAVO VO MD [facility] [address] [place] [address] 11/05/2021 14:01:43 11/05/2021 14:58:19 Raised seborrheic keratosis [id number] 79303 L82.1 Reassuranc e and education regarding the disorder and options. Neoplasm o f uncertain behavior of skin 57300142 D48.5 Left mastoid posterior - Education, thenshave removaland base destroyed with electrodes sication. Lentiginosis 250694816 L 81.4 [id number] ILDA JENKINS-[facility] CARDIOLOG Y [address] [place] [address] 01/12/2022 09:27:45 01/12/2022 10:14:16 Overweight 620635896 E66.3 Paroxysmal atrial fibrillation 552084597 I48.0 low burden less than 0.1%. Has respectful ly declined anticoagul ation Sick sinus syndrome 3608 3008 I49.5 s/p pacemakere stimated longevity 3.5 years. Continue following in our device clinic Cardiac pa maureen in situ 702012492 Z95.0 device interrogat ion from our device clinic remote transmissi on reviewed and discussed with the patient. 0% burden of atrial fibrillati on. Estimated longevity on pacemaker generator 3.5 years Long-term drug therapy 643842275 Z79.899 no evidence of flecainide toxicity on EKG. Findings discussed with the patient. Recent labs reviewed and discussed with the patient. Patient understand s the necessity for semiannual follow-up with surveillan ce EKG and labs while utilizing chronic antiarrhyt hmics. [id number] JAMEL CHERRY MD CARDIOLOG Y [address] [place] [address] 07/12/2022 12:54:29 07/12/2022 15:11:26 Overweight 104123308 E66.3 Current BMI 26. Target BMI 25 Paroxysmal atrial fibrillation 143707220 I48.0 CKV2YN5-Me sc score - 2EKG reviewed which shows normal sinus rhythm. He has low burden of atrial fibrillati on less than 0.1%. Has respectful ly declined anticoagul ation. Currently on clopidogre l 75 mg daily. Medication s reviewed and compliance advised. Continue with current doses. He will call for prescripti ons as needed. Sick sinus syndrome 3608 3008 I49.5 S/P PPM-Medtro aydin... Cardiac pa cemaker in situ 136780699 Z95.0 Device interrogat ed today. It is functionin g normally. 3 years to ANYI. No programmin g changes made. No atrial fibrillati on noted. Continue with home pacemaker monitoring . Long-term drug therapy 662339830 Z79.899 Currently on flecainide 100 mg twice a day. EKG reviewed. Recent lab results reviewed. No obvious evidence of drug toxicity. Continue with current doses Elevated blood-pressure reading without diagnosis of hypertension 437979288 R03.0 I recommend he continue monitoring his blood pressure at home. Decrease sodium intake to less than 2000 mg a day. Target blood pressure < 140/90 [id number] JAMEL CHERRY MD CARDIOLOG Y [address] [place] [address] 02/08/2023 10:53:06 02/08/2023 12:11:32 Paroxysmal atrial fibrillation 520811930 I48.0 AIC0LV2-Iu sc score - 2EKG reviewed which shows normal sinus rhythm. He has low burden of atrial fibrillati on less than 0.1%. Has respectful ly declined anticoagul ation. Currently on clopidogre l 75 mg daily. Medication s reviewed and compliance advised. Continue with current doses. He will call for prescripti ons as needed. Sick sinus syndrome 3608 3008 I49.5 S/P PPM-Medtro aydin... Cardiac pa cemaker in situ 196800946 Z95.0 Remote pacemaker interrogat ion done. Device functionin g normally. Continue with home pacemaker monitoring . Long-term drug therapy 884061387 Z79.899 Currently on flecainide 100 mg twice a day. EKG reviewed. No obvious evidence of drug toxicity. Continue with current doses. CBC, CMP and magnesium levels ordered today Overweight 427841195 E66 .3 Current BMI 25.6. Target BMI 25 [id number] JAMEL CHERRY MD CARDIOLOG Y [address] ,[address] [place] [address] 08/23/2023 08:39:42 08/23/2023 12:19:58 Paroxysmal atrial fibrillation 191332752 I48.0 CNZ7YK1-Kc sc score - 2EKG reviewed which shows normal sinus rhythm. He has low burden of atrial fibrillati on less than 0.1%. Has respectful ly declined anticoagul ation. Currently on clopidogre l 75 mg daily. Medication s reviewed and compliance advised. Continue with current doses. He will call for prescripti ons as needed. Sick sinus syndrome 3608 3008 I49.5 S/P PPM-Medtro aydin... Cardiac pa cemaker in situ 614949222 Z95.0 Pacemaker interrogat ed today. 27 months to ANYI. Device functionin g normally. Continue with home pacemaker monitoring . Long-term drug therapy 304787825 Z79.899 Currently on flecainide 100 mg twice a day. EKG reviewed. No obvious evidence of drug toxicity. Continue with current doses. CMP and magnesium levels ordered today Overweight 498168774 E66 .3 Current BMI 26.9. Target BMI 25. FLP ordered today [id number] ELOISE WHITE MD CARDIOLOG Y [address] ,[address] [place] [address] 03/05/2024 08:25:02 03/05/2024 09:43:56 Paroxysmal atrial fibrillation 673015241 I48.0 IJK5ZY3-Ss sc score - 2EKG reviewed which shows normal sinus rhythm. He has low burden of atrial fibrillati on less than 0.1%. Has respectful ly declined anticoagul ation. Currently on clopidogre l 75 mg daily. Medication s reviewed and compliance advised. Continue with current doses. He will call for prescripti ons as needed. Sick sinus syndrome 3608 3008 I49.5 S/P PPM-Medtro aydin... Cardiac pa cemaker in situ 199531335 Z95.0 Assessment was performed of the implanted device. Any needed adjustment s and setting changes were personally supervised by me and are documented in follow -up form. The device is functionin g well. The patient was instructed to continue in the device surveillan ce program appropriat e for the device. Estimated ANYI 20 months. No significan t atrial fibrillati on noted. Long-term drug therapy 623636127 Z79.899 Currently on flecainide 100 mg twice a day. EKG reviewed. No obvious evidence of drug toxicity. Continue with current doses. CMP and magnesium levels ordered today QTc OK. Overweight 481626344 E66 .3 Current BMI 26.9. Target BMI 25. Hyperlipidemia 73900487 E78.5 FLP 08-23-2023: TC 254, TG 164, HDL 42, LDL 179. Placed on rosuvastat in 20 mg in the past. FLP ordered today [id number] CHRISTINA NOBLE PA-C FAMILY [address] [facility] [address] 04/08/2024 08:55:17 04/08/2024 10:16:31 Adult health examination 777602172 Z00.00 Patient presented to office today for their Medicare Annual Wellness Visit. Wellness visit Questionna cara was reviewed. Depression screening was negative and no followup plan is needed. Emphasized preventive health measures including fall prevention to help reduce health risks and promote healthy living. Screening for malignant neoplasm of colon 682316200 Z12.11 colonoscop y on 07/26/2017; 10 yr rpt; I stressed the importance of colon screenings and early detection of colon cancer Hepatitis C screening 41 6472161 Z11.59 Has patient ever had Hep C screening? NO Active immunization 3387 9002 Z23 Has patient had Hep B vaccine? NO Eye disord er screening 362182298 Z13.5 Has patient ever had eye/glauco ma screening? NO Paroxysmal atrial fibrillation 834113644 I48.0 Patient is actively managed by cardiology . Hyperlipidemia 29776130 E78.5 Lipid panel2023 was a total cholestero l 163, LDL of 94, triglyceri ailyn of 119, HDL 45. Continue with a low-fat diet and current medication s which is actively managed by cardiology Hypercoagu lability state 52342350 D68.69 Patient has A-fib but declines anticoagul ation medication . Atheroscle rosis of aorta 36751309 I70.0 08/2021 CT shows aortic calcificat ions. SInce pt has h/o CVA and can submit diagnosis of aortic atheroscle rosis. active management for this is already underway with Plavix+ BP meds. Managed by Cardiology Congestive heart failure 76033216 I50.9 Patient had diastolic disc function grade 1 on echo on 03/21/2017 . Repeat today Unsteady when walking 22 299331 R26.89 Will refer to physical therapy. He would like to have this in [place] Multiple b enign melanocytic nevi 548851107 D22.9 Dermatolog y referral for a full-body exam [id number] GUSTAVO VO MD [facility] [address] [place] [address] 04/09/2024 08:45:34 04/09/2024 14:13:18 Raised seborrheic keratosis 9953524286 77908 L82.1 Reassuranc e and education regarding the disorder and options. Lentiginosis 278155809 L 81.4 Reassuranc eRecommend ed Equate Ultra Sunscreen 30+ and sun protecting hats/cloth ing Inflamed s eborrheic keratosis 379031233 L82.0 LN x 9Pt educated what to expect from freezing Actinic keratosis 0[address] 2Pt educated what to expect from freezing Multiple b enign melanocytic nevi 914808450 D22.9 Reassuranc e Neoplasm o f uncertain behavior of skin 96147944 D48.5 Rt lower calf has a 6mm dermal nodulePt reports burning/st inging painEducat ion, thenshave removaland base destroyed with electrodes sication.R /O DF vs otherConse nt and photo obtainedSe e procedure notePt tolerated wellWound care informatio n providedF/ u pending path [id number] ELOISE WHITE MD CARDIOLOG Y [facility] [address] [place] [address] 09/05/2024 07:59:56 09/06/2024 07:58:15 Cardiac pacemaker in situ 097032526 Z95.0 Assessment was performed of the implanted device. Any needed adjustment s and setting changes were personally supervised by me and are documented in follow -up form. The device is functionin g well. The patient was instructed to continue in the device surveillan ce program appropriat e for the device. Estimated ANYI 19 months. No significan t atrial fibrillati on noted. Discussed pacemaker management with the patient in detail. Long-term drug therapy 663621753 Z79.899 Currently on flecainide 100 mg twice a day. EKG reviewed. No obvious evidence of drug toxicity. Continue with current doses. CMP, CBC and magnesium levels ordered today, QTc OK. Paroxysmal atrial fibrillation 640216100 I48.0 MKN3GD9-Ig sc score - 2EKG reviewed which shows normal sinus rhythm. He has low burden of atrial fibrillati on less than 0.1%. Has respectful ly declined anticoagul ation. Currently on clopidogre l 75 mg daily. Medication s reviewed and compliance advised. Continue with current doses. He will call for prescripti ons as needed. Sick sinus syndrome 3608 3008 I49.5 S/P PPM-Medtro aydin... 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 Hameed is an 88-year-old male with history of sick sinus syndrome, tachybradycardia syndrome S/P PPM - [employer]. He has a history of paroxysmal atrial fibrillation managed with flecainide. He is currently on clopidogrel 75 mg daily. He has a low burden of atrial fibrillation and has therefore respectfully declined anticoagulation.He had a negative nuclear GXT in 2014. 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 He gets around primarily with a cane. He currently denies any chest pain, no shortness of breath, no PND, orthopnea or syncope. Pacemaker interrogated in the office today. Device functioning normally. 27 months to ANYI. EKG done today shows atrial paced rhythm at 74 bpm. JAMEL CHERRY MD [address] [place] [address], [phone], [facility] 08/23/2023 09:41:33 03/05/2024 text/html WM/SSS/PPM - [employer]. PxAF on flecainide. He is currently on clopidogrel 75 mg daily. He has a low burden of atrial fibrillation and has therefore respectfully declined anticoagulation.He had a negative nuclear GXT in 2015. 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 He gets around primarily with a cane.He currently denies any chest pain, no shortness of breath, no PND, orthopnea or syncope.Pacemaker interrogated in the office today. Device functioning normally. 20 months to ANYI.EKG done today shows atrial paced rhythm at 74 bpm.Addendum: Echocardiogram performed 04-16-2024: Moderate aortic insufficiency with concentric LVH. Comparable to echocardiogram of 2017. ELOISE WHITE MD [address] [place] [address], [phone], [facility] 04/16/2024 12:34:22 04/08/2024 text/html An 88-year-old theresa felipe presents for his annual wellness visit. He has not been to the clinic in 2 years in family medicine. He has been coming to his cardiology appointments. He would like to have his Prevnar 20 and a high-dose flu shot. He declines tetanus and Shingrix at this point. He will get his eye exam outside of the clinic. He does have chronic history of A-fib, hyperlipidemia, hypertension, hypercoagulable state. He is actively managed by cardiology. His echo in 2017 did show diastolic heart failure grade 1 and possible PVO. Will recheck an echo today. He has been having some unsteadiness with walking. He has degenerative disc disease which is causing some nerve compression but he is not a candidate for surgery. He states discussed cause some weakness in his left leg. I have suggested physical therapy referral and he is agreeable. He does have a couple moles including 1 on the bridge of his right side of nostril. Will refer him back to Dr. Vo. No other questions or concerns today CHRISTINA NOBLE PA-C [address] [place] [address], [phone], [facility] 04/08/2024 10:10:19 04/09/2024 text/html Established roya ent LOCATION: Rt upper noseDURATION: YearsSYMPTOMS: AsxTREATMENTS: None Pt would like waist up exam today. Check Lt side of neck, Rt calf. Denies any other new, changing, or bleeding lesions, or other rashes, feels well, good mood and has no family history of melanoma. GUSTAVO VO MD [address] [place] [address], [phone], [facility] 04/15/2024 17:17:13 09/05/2024 text/html WM/SSS/PPM - [employer]. PxAF on flecainide. FKR3CT1-WLUs score 2. He is currently on clopidogrel 75 mg daily. He has a low burden of atrial fibrillation and has therefore respectfully declined anticoagulation. He is aware that clopidogrel is not optimal.He had a negative nuclear GXT in 2014. 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 He gets around primarily with a cane.He currently denies any chest pain, no shortness of breath, no PND, orthopnea or syncope.Pacemaker interrogated in the office today. Device functioning normally. 20 months to ANYI.EKG done today shows atrial paced rhythm at 74 bpm.Addendum: Echocardiogram performed 04-16-2024: Moderate aortic insufficiency with concentric LVH. Comparable to echocardiogram of 2017. ELOISE WHITE MD [address] [place] [address], [phone], [facility] 09/05/2024 09:18:39
== END 2024-11-11 23:59 | disposition home or self-care (01) ==
LOC: LAB.DROPOF 11-12 15:07
PROVIDERS: PCP Student in an Organized Health Care Education/Training Program; Visit Provider Student in an Organized Health Care Education/Training Program
DX: R52 Pain, unspecified (principal)
CPT/HCPCS: 87635

== ENCOUNTER 2024-11-18 09:30 | Emergency (ER) | payer MEDICARE, OTHER, SELFPAY ==
--- NOTE | 2024-11-18 09:36 | XR_ITS ---
FINAL REPORT TECHNIQUE: Chest PA & Lateral CLINICAL HISTORY: cough COMPARISON: None FINDINGS: 2 views of the chest were performed. A pacemaker is present. The heart size is normal. The mediastinum is within normal limits. There is no acute cardiopulmonary process. There are no pleural effusions. There is no pneumothorax. The bony thorax appears intact. IMPRESSION: No acute cardiopulmonary process. Reviewed, Interpreted and Dictated by Damián Forrest MD Transcribed by Lynne Bell Authenticated and [facility]
--- NOTE | 2024-11-18 09:37 | [facility].EDCP ---
Discharge Plan Disposition Patient Disposition: Home, Self-Care Prescriptions Prescriptions: New doxycycline hyclate 100 mg capsule 100 mg PO BID 7 Days Qty: 14 0RF No Action cefdinir 300 mg capsule 300 mg PO BID Qty: 20 0RF atenolol 25 MG tablet 25 mg PO BID clopidogrel 75 MG tablet 75 mg PO DAILY flecainide 100 MG tablet 100 mg PO BID Referrals Follow up/Referrals: Sanya Mott DO [Primary Care Provider, Family Practice] - See instructions Activity Restrictions/Add. Instructions Additional Instructions/Restrictions: At this time it was felt you are safe to be discharged home. If new or worsening symptoms please do not hesitate to return the emergency department. Please take antibiotics as prescribed and follow-up with your family doctor on Monday as discussed. Clinical Impressions Clinical Impression: Acute interstitial pneumonia Print Language Print Language: [place] Island[place] Discharge ED Provider: Will Chan General Chief Complaint: Upper Respiratory Infection Stated Complaint: soa cough over a week Time Seen by Provider: 11/18/24 09:33 History of Present Illness HPI narrative: Patient is a 89-year-old male with past medical history of pacemaker placement on anticoagulation, no chronic lung disease who presents emergency department for evaluation of cough. He was seen in urgent care approximately a week ago diagnosed with sinusitis and discharged with a course of cefdinir for which she has been compliant. Due to persistent cough over the last 7 days caused him to become concerned and presented for continued evaluation. He does not take any diuretics, no chest pain reported no other acute complaints at this time. Please note that above description of symptoms, in this electronic medical record under categorization of recalled from ER triage doctor by RN are reflective of an initial nursing assessment, however, is not reflective of my full history and physical exam that was personally taken and clarified. Consequentially, this preceding description of symptoms, which may include the patient's categorized chief complaint in the EMR, do not reflect my personal clinical impression, and the ultimate description of history of present illness and patient stated complaints should be deferred to this section of the note. Unless stated otherwise or congruent with this section of the note, additional signs, symptoms, or incongruence should be interpreted as inaccurate with my clinical impression. Related Data Home Medications ?Medication ?Instructions ?Recorded ?Confirmed atenolol 25 mg tablet 25 mg PO BID htn 06/15/19 11/11/24 clopidogrel 75 mg tablet 75 mg PO DAILY blood thinner 06/15/19 11/11/24 flecainide 100 mg tablet 100 mg PO BID . 06/15/19 11/11/24 Previous Rx's ?Medication ?Instructions ?Recorded cefdinir 300 mg capsule 300 mg PO BID #20 caps 11/11/24 doxycycline hyclate 100 mg capsule 100 mg PO BID interstitial 11/18/24 pneumonia 7 days #14 caps Allergies Allergy/AdvReac Type Severity Reaction Status Date / Time Sulfa (Sulfonamide Allergy Mild reddness Verified 11/11/24 10:28 Antibiotics) (SULFA (SULFONAMIDE ANTIBIOTICS)) [facility] Disclaimer: The information contained in this section may have been updated after the patient was seen, as this information can be updated by other users. Social History Smoking Status: Never smoker alcohol intake: never current occupational status: retired Travel in the last 8 weeks?: None household members: spouse housing: house Have you lived/traveled outside [place] in past 30 days?: No Contact w/someone who lives/traveled outside [place] past 30 days?: No Exposure to someone with infectious disease in past 14 days?: No Do you have a fever (greater than 100.4 F or 38 C)?: No Have you tested positive for COVID-19?: No Exposed to someone with COVID-19 in past 14 days?: No Do you have a sore throat?: No Do you have a cough?: Yes Do you have any weakness?: No Do you have any diarrhea?: No Are you experiencing any unusual bleeding?: No Do you have any muscle aches/pain?: No Do you have any abdominal pain?: No Are you experiencing loss of taste or smell?: No Other Medical History Have you received the Flu Vaccine for this season: No Have you received the Pneumonia Vaccine: Yes ROS Obtained: Yes Systems reviewed as appropriate & no additional complaints except as documented Physical Exam General General appearance: alert and in no apparent distress Head Head exam: atraumatic and normocephalic Eye Eye exam: Present PERRL and EOMI ENT ENT exam: Present normal oropharynx and mucous membranes moist Neck Neck exam: Present normal inspection Chest Chest inspection: Present normal inspection and symmetric chest wall rise Respiratory Respiratory exam: Present normal lung sounds bilaterally; Absent respiratory distress, wheezes or stridor Cardiovascular Cardiovascular exam: Present regular rate and normal rhythm Abdominal Exam Abdominal exam: Present soft Extremities Exam Extremities exam: Present normal inspection Neurological Exam Neurological exam: Present alert Psychiatric Psychiatric exam: Present normal affect Skin Skin exam: Present warm and dry HEART Score HEART Score HEART Score assessment performed?: No Critical Care Critical Care Time Critical Care Time: No Medical Decision Making Helio Inquiry Pt receiving controlled substance: No Vital Signs Vital Signs: 11/18/24 09:41 11/18/24 10:00 11/18/24 10:30 Temperature 97.8 F Temperature Source Oral Pulse Rate 76 70 Pulse Rate [Right] 80 Respiratory Rate 19 Blood Pressure 127/74 118/69 Blood Pressure [Right Arm] 178/94 H Blood Pressure Mean [Right Arm] 122 Blood Pressure Source [Right Arm] Automatic Cuff Blood Pressure Position [Right Arm] Supine 02 Sat by Pulse Oximetry 95 99 97 Oxygen Delivery Method Room Air Lab Data Labs: Lab Results 11/18/24 09:30: SARS-CoV-2 (PCR) Not detected, Influenza A Untype (PCR) Not detected, Influenza Type B (PCR) Not detected Response Orders (Tests/Meds): ED MEDICATIONS Discontinued Medications Generic Name Dose Route Start Last Admin Trade Name Freq PRN Reason Stop Dose Admin Lidocaine HCl 5 ml 11/18/24 09:36 11/18/24 09:54 Lidocaine 2% 5ml Pf Vial IH 11/18/24 09:37 5 ml ONCE ONE Administration ORDERS Category Date Time Status CXR 2 view (NOT portable) [XR chest 2V] Stat Exams 11/18/24 09:36 Taken Rapid PCR Covid and Flu A/B Stat Lab 11/18/24 09:30 Completed MDM Narrative Medical Decision Narrative: In summary patient is a 89-year-old male with past medical history described above presents emergency department for evaluation of cough. Patient is hemodynamically stable nontoxic-appearing upon arrival, afebrile saturating mid 90s on room air no tachypnea clear to auscultation. He does have a cough. Differential includes postinfectious cough, prolonged viral bronchitis, pneumonia, among others. Workup with hematologic labs was considered but given how well-appearing he is in clear to auscultation will be deferred. Initial workup will be conducted with two-view chest x-ray, viral swab. Initial inventions include lidocaine nebulizer for symptomatic treatment. Initial workup reviewed by viral swab negative. Chest x-ray informally inter by me there appears to be interstitial opacities and a positive spine sign consistent with interstitial pneumonia. Given this patient we discharged with a course of doxycycline and follows up with Dr. Mott this Monday and was given return precautions.
[2024-11-18 09:41] VITALS: BP 178/94; PULSE 80; RESP 19; TEMP 36.6; O2SAT 95; BMI 26.4
[2024-11-18 09:42] LABS: Coronavirus 19, PCR Not Detected (NotDetected); Influenza A, PCR Not Detected (NotDetected); Influenza B, PCR Not Detected (NotDetected)
--- OUTSIDE RECORDS SUMMARY | 2024-11-18 09:42 | XMS_ITS | Data Portability ---
Author Organization [facility] [place] Alexander [place] CLOSED Address [address] [place] [address] Care Team Providers [employer] Sales Consultant Name Role Phone CHRISTINA NOBLE Primary Care Provider ELOISE WHITE Director Of Cardiology Service Line Assessment Encounter Date Assessment Date Assessment LastModified by Organization Details LastModified Time 04/09/2024 04/09/2024 follow up annually, pending path [email or web address] Not available 04/09/2024 09:55:26 Plan of Treatment Reminders Order Date Submit Date Provider Last Modified By Organization Details Last Modified Time Details Appointments RECHECK 2024 11:40A M ELOISE WHITE MD Not available Not available Not available PHYSICAL EXAM 2024 09:00A M CHRISTINA NOBLE PA-C Not available Not available Not available Lab surgical pathology study 2023 [facility], [address] [place] [address], [address], 04/11/2024 23:10:45 TSH, serum or plasma 2023 024 [facility], [address] [place] [address], [address], 04/08/2024 12:48:19 urinalysi s panel, auto 2023 024 [email or web address] [facility], [address] [place] [address] , [place], [address], 04/08/2024 10:01:34 CBC w/ auto diff 2023 024 [facility], [address] [place] [address], [address], 04/08/2024 12:00:06 CMP, serum or plasma 2023 024 [facility], [address] [place] [address], [address], 04/08/2024 13:00:29 hepatitis C Ab, serum 2023 024 [facility], [address] [place] [address], [address], 04/09/2024 17:35:16 lipid panel, serum [address], [address] [place] [address], [address], 03/12/2024 08:18:43 Referral dermatolo gist referral - fbe 2023 024 [email or web address] Gustavo Vo MD, [address], [place] [address], [place], [address], 05/06/2024 10:34:39 physical therapist referral 2023 024 [email or web address] [facility], [address], [place], [address], 05/17/2024 07:49:55 Procedures pacemaker programmi ng, dual lead (PROC) 2024 025 [facility], [address], [facility], [place], [address], 09/05/2024 10:37:34 device check (PROC) 2023 024 [email or web address] [facility], [address], [facility], [place], [address], 03/05/2024 11:22:31 Surgeries None recorded. Imaging electroca rdiogram 2023 024 [email or web address] [facility], [address], [place], [address], 03/05/2024 10:42:28 Medication Orders None recorded. Patient TargetsNo targets recorded. Patient Instructions Encounter Date Encounter Id Patient Instructions Last Modified By Organization Details Last Modified Time 08/23/2023 [id number] body mass index: care instructions major Not [...] contact us. Jamel Cherry MD, FACP, FACC, [facility] [phone] major Not available 08/23/2023 09:41:05 04/09/2024 [id number] Education: We discussed the potential diagnostic options, options for further evaluation and treatments, and the risks and benefits of each. [email or web address] Not available 04/08/2024 16:52:38 Reason for Referral Physical Therapist Referral for Unsteady when walking Referring Physician: [facility], Encounter Date: 04/08/2024 Car Groomer Referral for M ultiple benign melanocytic nevi fbe Referring Physician: [facility], Encounter Date: 04/08/2024 Results Created Date Observation Date Name Description Value Unit Range Abnormal Flag Note LastModifiedBy Organization Detail LastModifiedTime 08/23/19 24 08/23/2023 MAGNE SIUM magnesium 2.1 mg/dL 1.6-2. 6 normal Not Available [facility] [address] [place], [address], 08/23/2023 12:47:29 08/23/19 24 08/23/2023 LIPID PROFI LE HDL cholesterol 42 mg/dL 40-242 normal Not Available [facility] [address] [place] [address], [address], 08/23/2023 12:47:31 08/23/19 24 08/23/2023 LIPID PROFI LE triglyceride s 164 mg/dL 0-149 high TRIGL YCERI DE RANGE S SCARLETT L: < 150 BORDE RLINE HIGH: 150 - 199 HIGH: 200 - 499 VERY HIGH: > OR = 500 Not Available [facility] [address] [place] [address], [address], 08/23/2023 12:47:31 08/23/19 24 08/23/2023 LIPID PROFI LE cholesterol 254 mg/dL 0-199 high YOANNA STERO L (TOTA L) RANGE S JEANNETTE ABLE: < 200 BORDE RLINE : 200 - 239 HIGHE R RISK: > 239 Not Available [facility] [address] [place] [address], [address], 08/23/2023 12:47:31 08/23/19 24 08/23/2023 LIPID PROFI LE LDL cholesterol 179 mg/dL _(hailey c) 0-99 high LDL YOANNA STERO L RANGE S OPTIM AL: < 100 NEAR/ ABOVE OPTIM AL: 100 - 129 BORDE RLINE HIGH: 130 - 159 HIGH: 160 - 189 VERY HIGH: > OR = 190 Not Available [facility] [address] [place] [address], [address], 08/23/2023 12:47:31 08/23/19 24 08/23/2023 COMP. METAB OLIC PANEL glucose 103 mg/dL 74-100 high Not Available [facility] [address] [place] [address], [address], 08/23/2023 12:47:33 08/23/19 24 08/23/2023 COMP. METAB OLIC PANEL blood urea nitrogen 20 mg/dL 6-20 normal Not Available [facility] [address] [place] [address], [address], 08/23/2023 12:47:33 08/23/19 24 08/23/2023 COMP. METAB OLIC PANEL creatinine 1.12 mg/dL 0.70-1 .28 normal Not Available [facility] [address] [place] [address], [address], 08/23/2023 12:47:33 08/23/19 24 08/23/2023 COMP. METAB OLIC PANEL BUN/creatini ne ratio 18 (calc ) 10-20 normal Not Available [facility] [address] [place] [address], [address], 08/23/2023 12:47:33 08/23/19 24 08/23/2023 COMP. METAB OLIC PANEL sodium 141 mmol/ L 136-14 5 normal Not Available [facility] [address] [place] [address], [address], 08/23/2023 12:47:33 08/23/19 24 08/23/2023 COMP. METAB OLIC PANEL potassium 4.3 mmol/ L 3.4-5. 0 normal Not Available [facility] [address] [place] [address], [address], 08/23/2023 12:47:33 08/23/19 24 08/23/2023 COMP. METAB OLIC PANEL chloride 106 mmol/ L 98-107 normal Not Available [facility] [address] [place] [address], [address], 08/23/2023 12:47:33 08/23/19 24 08/23/2023 COMP. METAB OLIC PANEL carbon dioxide 24 mmol/ L 22-31 normal Not Available [facility] [address] [place] [address], [address], 08/23/2023 12:47:33 08/23/19 24 08/23/2023 COMP. METAB OLIC PANEL anion gap 11 (calc ) 7-25 normal Not Available [facility] [address] [place] [address], [address], 08/23/2023 12:47:33 08/23/19 24 08/23/2023 COMP. METAB OLIC PANEL calcium 9.8 mg/dL 8.6-10 .2 normal Not Available [facility] [address] [place] [address], [address], 08/23/2023 12:47:33 08/23/19 24 08/23/2023 COMP. METAB OLIC PANEL total protein 7.4 g/dL 6.4-8. 3 normal Not Available [facility] [address] [place] [address], [address], 08/23/2023 12:47:33 08/23/19 24 08/23/2023 COMP. METAB OLIC PANEL albumin 4.4 g/dL 3.5-5. 2 normal Not Available [facility] [address] [place] [address], [address], 08/23/2023 12:47:33 08/23/19 24 08/23/2023 COMP. METAB OLIC PANEL globulin 3.0 1.5-4. 5 normal Not Available [facility] [address] [place] [address], [address], 08/23/2023 12:47:33 08/23/19 24 08/23/2023 COMP. METAB OLIC PANEL albumin/glob ulin ratio 1.5 (calc ) 1.1-2. 5 normal Not Available [facility] [address] [place] [address], [address], 08/23/2023 12:47:33 08/23/19 24 08/23/2023 COMP. METAB OLIC PANEL bilirubin, total 0.4 mg/dL 0.1-1. 2 normal Not Available [facility] [address] [place] [address], [address], 08/23/2023 12:47:33 08/23/19 24 08/23/2023 COMP. METAB OLIC PANEL alkaline phosphatase 92 U/L 40-129 normal Not Available [facility] [address] [place], [address], 08/23/2023 12:47:33 08/23/19 24 08/23/2023 COMP. METAB OLIC PANEL AST 16 U/L 0-40 normal Not Available [facility] [address] [place], [address], 08/23/2023 12:47:33 08/23/19 24 08/23/2023 COMP. METAB OLIC PANEL ALT 13 U/L 0-41 normal Not Available [facility] [address] [place], [address], 08/23/2023 12:47:33 08/23/19 24 08/23/2023 COMP. METAB [...] s/KDO QI/gf r_cal culat orPed Not Available [facility] [address] [place], [address], 08/23/2023 12:47:33 03/05/20 24 03/05/2024 LIPID PROFI LE HDL cholesterol 45 mg/dL 40-242 normal Not Available [facility] [address] [place], [address], 03/05/2024 12:22:20 03/05/20 24 03/05/2024 LIPID PROFI LE triglyceride s 119 mg/dL 0-149 normal TRIGL YCERI DE RANGE S SCARLETT L: < 150 BORDE RLINE HIGH: 150 - 199 HIGH: 200 - 499 VERY HIGH: > OR = 500 Not Available [facility] [address] [place] [address], [address], 03/05/2024 12:22:20 03/05/20 24 03/05/2024 LIPID PROFI LE cholesterol 163 mg/dL 0-199 normal YOANNA STERO L (TOTA L) RANGE S JEANNETTE ABLE: < 200 BORDE RLINE : 200 - 239 HIGHE R RISK: > 239 Not Available [facility] [address] [place] [address], [address], 03/05/2024 12:22:20 03/05/20 24 03/05/2024 LIPID PROFI LE LDL cholesterol 94 mg/dL _(hailey c) 0-99 normal LDL YOANNA STERO L RANGE S OPTIM AL: < 100 NEAR/ ABOVE OPTIM AL: 100 - 129 BORDE RLINE HIGH: 130 - 159 HIGH: 160 - 189 VERY HIGH: > OR = 190 Not Available [facility] [address] [place] [address], [address], 03/05/2024 12:22:20 04/08/20 24 04/08/2024 COMPL ETE BLOOD COUNT white blood cells 5.4 10*3/ uL 3.8-10 .8 normal Not Available [facility] [address] [place] [address], [address], 04/08/2024 12:00:06 04/08/20 24 04/08/2024 COMPL ETE BLOOD COUNT red blood cells 4.46 10*6/ uL 4.20-5 .80 normal Not Available [facility] [address] [place] [address], [address], 04/08/2024 12:00:06 04/08/20 24 04/08/2024 COMPL ETE BLOOD COUNT hemoglobin 14.2 g/dL 14.0-1 8.0 normal Not Available [facility] [address] [place] [address], [address], 04/08/2024 12:00:06 04/08/20 24 04/08/2024 COMPL ETE BLOOD COUNT hematocrit 40.7 % 40.0-5 2.0 normal Not Available [facility] [address] [place] [address], [address], 04/08/2024 12:00:06 04/08/20 24 04/08/2024 COMPL ETE BLOOD COUNT MCV 91 fL 80-100 normal Not Available [facility] [address] [place] [address], [address], 04/08/2024 12:00:06 04/08/2004/08/2024 COMPL ETE BLOOD COUNT MCH 32 pg 26-35 normal Not Available [facility] [address] [place] [address], [address], 04/08/2024 12:00:06 04/08/20 24 04/08/2024 COMPL ETE BLOOD COUNT MCHC 35 g/dL 32-36 normal Not Available [facility] [address] [place] [address], [address], 04/08/2024 12:00:06 04/08/2004/08/2024 COMPL ETE BLOOD COUNT RDW 13.3 % 11.0-1 5.0 normal Not Available [facility] [address] [place] [address], [address], 04/08/2024 12:00:06 04/08/20 24 04/08/2024 COMPL ETE BLOOD COUNT MPV 8.5 fL 6.2-10 .5 normal Not Available [facility] [address] [place] [address], [address], 04/08/2024 12:00:06 04/08/2004/08/2024 COMPL ETE BLOOD COUNT platelet count 184 10*3/ uL 150-40 0 normal Not Available [facility] [address] [place] [address], [address], 04/08/2024 12:00:06 04/08/2004/08/2024 COMPL ETE BLOOD COUNT neutrophil,a bsolute 3.7 10*3/ uL 1.6-8. 4 normal Not Available [facility] [address] [place] [address], [address], 04/08/2024 12:00:06 04/08/20 24 04/08/2024 COMPL ETE BLOOD COUNT lymphocyte,a bsolute 1.1 10*3/ uL 0.4-5. 1 normal Not Available [facility] [address] [place] [address], [address], 04/08/2024 12:00:06 04/08/2004/08/2024 COMPL ETE BLOOD COUNT monocyte,abs olute 0.4 10*3/ uL 0.0-1. 2 normal Not Available [facility] [address] [place] [address], [address], 04/08/2024 12:00:06 04/08/20 24 04/08/2024 COMPL ETE BLOOD COUNT eosinophil,a bsolute 0.2 10*3/ uL 0.0-0. 8 normal Not Available [facility] [address] [place] [address], [address], 04/08/2024 12:00:06 04/08/20 24 04/08/2024 COMPL ETE BLOOD COUNT basophil,abs olute 0.1 10*3/ uL 0.0-0. 3 normal Not Available [facility] [address] [place] [address], [address], 04/08/2024 12:00:06 04/08/20 24 04/08/2024 COMPL ETE BLOOD COUNT % neutrophils 67.6 % 42.0-7 8.0 normal Not Available [facility] [address] [place] [address], [address], 04/08/2024 12:00:06 04/08/20 24 04/08/2024 COMPL ETE BLOOD COUNT % lymphocytes 20.7 % 11.0-4 7.0 normal Not Available [facility] [address] [place] [address], [address], 04/08/2024 12:00:06 04/08/20 24 04/08/2024 COMPL ETE BLOOD COUNT % monocytes 7.4 % 0.0-11 .0 normal Not Available [facility] [address] [place] [address], [address], 04/08/2024 12:00:06 04/08/20 24 04/08/2024 COMPL ETE BLOOD COUNT % eosinophils 3.0 % 0.0-7. 0 normal Not Available [facility] [address] [place] [address], [address], 04/08/2024 12:00:06 04/08/20 24 04/08/2024 COMPL ETE BLOOD COUNT % basophils 1.3 % 0.0-3. 0 normal Not Available [facility] [address] [place] [address], [address], 04/08/2024 12:00:06 04/08/20 24 04/08/2024 COMPL ETE BLOOD COUNT nucleated red cells 0.1 % 0.0-0. 9 normal Not Available [facility] [address] [place] [address], [address], 04/08/2024 12:00:06 04/08/20 24 04/08/2024 COMPL ETE BLOOD COUNT nucleated RBCs, absolute 0.01 10*3/ uL not estab. normal Not Available [facility] [address] [place] [address], [address], 04/08/2024 12:00:06 04/08/20 24 04/08/2024 TSH TSH 1.530 u[IU] /mL 0.270- 4.200 normal Not Available [facility] [address] [place] [address], [address], 04/08/2024 12:48:19 04/08/20 24 04/08/2024 COMP. METAB OLIC PANEL glucose 97 mg/dL 74-100 normal Not Available [facility] [address] [place] [address], [address], 04/08/2024 13:00:29 04/08/20 24 04/08/2024 COMP. METAB OLIC PANEL blood urea nitrogen 22 mg/dL 6-20 high Not Available [facility] [address] [place] [address], [address], 04/08/2024 13:00:29 04/08/20 24 04/08/2024 COMP. METAB OLIC PANEL creatinine 1.06 mg/dL 0.70-1 .28 normal Not Available [facility] [address] [place] [address], [address], 04/08/2024 13:00:29 04/08/20 24 04/08/2024 COMP. METAB OLIC PANEL BUN/creatini ne ratio 21 (calc ) 10-20 high Not Available [facility] [address] [place] [address], [address], 04/08/2024 13:00:29 04/08/20 24 04/08/2024 COMP. METAB OLIC PANEL sodium 142 mmol/ L 136-14 5 normal Not Available [facility] [address] [place] [address], [address], 04/08/2024 13:00:29 04/08/20 24 04/08/2024 COMP. METAB OLIC PANEL potassium 4.2 mmol/ L 3.4-5. 0 normal Not Available [facility] [address] [place] [address], [address], 04/08/2024 13:00:29 04/08/20 24 04/08/2024 COMP. METAB OLIC PANEL chloride 106 mmol/ L 98-107 normal Not Available [facility] [address] [place] [address], [address], 04/08/2024 13:00:29 04/08/20 24 04/08/2024 COMP. METAB OLIC PANEL carbon dioxide 23 mmol/ L 22-31 normal Not Available [facility] [address] [place] [address], [address], 04/08/2024 13:00:29 04/08/20 24 04/08/2024 COMP. METAB OLIC PANEL anion gap 13 (calc ) 7-25 normal Not Available [facility] [address] [place] [address], [address], 04/08/2024 13:00:29 04/08/20 24 04/08/2024 COMP. METAB OLIC PANEL calcium 9.6 mg/dL 8.6-10 .2 normal Not Available [facility] [address] [place] [address], [address], 04/08/2024 13:00:29 04/08/20 24 04/08/2024 COMP. METAB OLIC PANEL total protein 7.5 g/dL 6.4-8. 3 normal Not Available [facility] [address] [place] [address], [address], 04/08/2024 13:00:29 04/08/20 24 04/08/2024 COMP. METAB OLIC PANEL albumin 4.3 g/dL 3.5-5. 2 normal Not Available [facility] [address] [place] [address], [address], 04/08/2024 13:00:29 04/08/20 24 04/08/2024 COMP. METAB OLIC PANEL globulin 3.2 1.5-4. 5 normal Not Available [facility] [address] [place] [address], [address], 04/08/2024 13:00:29 04/08/20 24 04/08/2024 COMP. METAB OLIC PANEL albumin/glob ulin ratio 1.3 (calc ) 1.1-2. 5 normal Not Available [facility] [address] [place] [address], [address], 04/08/2024 13:00:29 04/08/20 24 04/08/2024 COMP. METAB OLIC PANEL bilirubin, total 0.5 mg/dL 0.1-1. 2 normal Not Available [facility] [address] [place] [address], [address], 04/08/2024 13:00:29 04/08/20 24 04/08/2024 COMP. METAB OLIC PANEL alkaline phosphatase 91 U/L 40-129 normal Not Available [facility] [address] [place] [address], [address], 04/08/2024 13:00:29 04/08/20 24 04/08/2024 COMP. METAB OLIC PANEL AST 16 U/L 0-40 normal Not Available [facility] [address] [place] [address], [address], 04/08/2024 13:00:29 04/08/20 24 04/08/2024 COMP. METAB OLIC PANEL ALT 13 U/L 0-41 normal Not Available [facility] [address] [place] [address], [address], 04/08/2024 13:00:29 04/08/20 24 04/08/2024 COMP. METAB OLIC PANEL GFR 68 >= 60 normal NOT E New calcu latio n for GFR (CKD- EPI 2020) is formu lated witho ut race adjus tment facto rs at [facility] menda tion of the Edi Oliveira y Óscar driscoll and Rahul lawrence [facility] . This calcu latio n has not been valid ated in pregn ant women . For pedia tric patie nts refer to https ://traci arguelles.jumana bhardwaj/florentin au s/LOBITOO QI/gf r_cal culat orPed Not Available [facility] [address] [place] [address], [address], 04/08/2024 13:00:29 04/08/20 24 04/09/2024 HEPAT ITIS C AB SCR, REFLE X HCVQT hcab scr, reflex viral RNA qt NONREA CTIVE nonrea ctive normal Antib odies to HCV were not detec twila; does not exclu de the possi bilit y of expos ure to HCV. Not Available [facility] [address] [facility], [place], [address], 04/09/2024 17:35:16 04/08/20 24 04/08/2024 urina lysis panel , auto Unknown Analyte Clean Catch Not Available [address], [place], [address], 04/08/2024 07:18:33 04/08/20 24 04/08/2024 urina lysis panel , auto Unknown Analyte Yellow Not Available [address] [place], [place], [address], 04/08/2024 07:18:33 04/08/20 24 04/08/2024 urina lysis panel , auto Unknown Analyte Clear Not Available [address], [place], [address], 04/08/2024 07:18:33 04/08/20 24 04/08/2024 urina lysis panel , auto Unknown Analyte 1.010 Not Available [address], [place], [address], 04/08/2024 07:18:33 04/08/20 24 04/08/2024 urina lysis panel , auto Unknown Analyte 5.0 Not Available [address], [place], [address], 04/08/2024 07:18:33 04/08/20 24 04/08/2024 urina lysis panel , auto Unknown Analyte Negati ve Not Available [address], [place], [address], 04/08/2024 07:18:33 04/08/20 24 04/08/2024 urina lysis panel , auto Unknown Analyte Negati ve Not Available [address], [place], [address], 04/08/2024 07:18:33 04/08/20 24 04/08/2024 urina lysis panel , auto Unknown Analyte Trace Not Available [address], [place], [address], 04/08/2024 07:18:33 04/08/20 24 04/08/2024 urina lysis panel , auto Unknown Analyte Normal Not Available [address], [place], [address], 04/08/2024 07:18:33 04/08/20 24 04/08/2024 urina lysis panel , auto Unknown Analyte Negati ve Not Available [address] [address], [place], [address], 04/08/2024 07:18:33 04/08/20 24 04/08/2024 urina lysis panel , auto Unknown Analyte Normal Not Available [address] [address], [place], [address], 04/08/2024 07:18:33 04/08/20 24 04/08/2024 urina lysis panel , auto Unknown Analyte Negati ve Not Available [address], [place], [address], 04/08/2024 07:18:33 04/08/20 24 04/08/2024 urina lysis panel , auto Unknown Analyte Negati ve Not Available [address], [place], [address], 04/08/2024 07:18:33 04/09/20 24 04/09/2024 SURGI HAILEY surgical SEE BELOW normal Surgi hailey Patho logy Repor t NAME: DRYDE N, VIRGI L PATH: [id number] DATE of : 04/18 56 Copy to: Diagn osis: Right lower calf: Cash tofib tj. SOURC E OF SPECI MEN: [...] 23:10 Page 1 of 1 Not Available [facility] [address] [place] [address], [address], 04/11/2024 23:10:45 09/06/19 25 09/05/2024 COMPL ETE BLOOD COUNT white blood cells 5.1 10*3/ uL 3.8-10 .8 normal Not Available [facility] [address] [place] [address], [address], 09/05/2024 12:26:12 09/06/19 25 09/05/2024 COMPL ETE BLOOD COUNT red blood cells 4.36 10*6/ uL 4.20-5 .80 normal Not Available [facility] [address] [place] [address], [address], 09/05/2024 12:26:12 09/06/19 25 09/05/2024 COMPL ETE BLOOD COUNT hemoglobin 13.3 g/dL 14.0-1 8.0 low Not Available [facility] [address] [place] [address], [address], 09/05/2024 12:26:12 09/06/19 25 09/05/2024 COMPL ETE BLOOD COUNT hematocrit 40.6 % 40.0-5 2.0 normal Not Available [facility] [address] [place] [address], [address], 09/05/2024 12:26:12 09/06/19 25 09/05/2024 COMPL ETE BLOOD COUNT MCV 93 fL 80-100 normal Not Available [facility] [address] [place] [address], [address], 09/05/2024 12:26:12 09/06/19 25 09/05/2024 COMPL ETE BLOOD COUNT MCH 31 pg 26-35 normal Not Available [facility] [address] [place] [address], [address], 09/05/2024 12:26:12 09/06/19 25 09/05/2024 COMPL ETE BLOOD COUNT MCHC 33 g/dL 32-36 normal Not Available [facility] [address] [place] [address], [address], 09/05/2024 12:26:12 09/06/19 25 09/05/2024 COMPL ETE BLOOD COUNT RDW 13.7 % 11.0-1 5.0 normal Not Available [facility] [address] [place] [address], [address], 09/05/2024 12:26:12 09/06/19 25 09/05/2024 COMPL ETE BLOOD COUNT MPV 9.1 fL 6.2-10 .5 normal Not Available [facility] [address] [place] [address], [address], 09/05/2024 12:26:12 09/06/19 09/05/2024 COMPL ETE BLOOD COUNT platelet count 179 10*3/ uL 150-40 0 normal Not Available [facility] [address] [place] [address], [address], 09/05/2024 12:26:12 09/06/19 25 09/05/2024 COMPL ETE BLOOD COUNT neutrophil,a bsolute 3.4 10*3/ uL 1.6-8. 4 normal Not Available [facility] [address] [place] [address], [address], 09/05/2024 12:26:12 09/06/19 25 09/05/2024 COMPL ETE BLOOD COUNT lymphocyte,a bsolute 1.1 10*3/ uL 0.4-5. 1 normal Not Available [facility] [address] [place] [address], [address], 09/05/2024 12:26:12 09/06/19 25 09/05/2024 COMPL ETE BLOOD COUNT monocyte,abs olute 0.3 10*3/ uL 0.0-1. 2 normal Not Available [facility] [address] [place] [address], [address], 09/05/2024 12:26:12 09/06/19 25 09/05/2024 COMPL ETE BLOOD COUNT eosinophil,a bsolute 0.2 10*3/ uL 0.0-0. 8 normal Not Available [facility] [address] [place] [address], [address], 09/05/2024 12:26:12 09/06/19 25 09/05/2024 COMPL ETE BLOOD COUNT basophil,abs olute 0.1 10*3/ uL 0.0-0. 3 normal Not Available [facility] [address] [place] [address], [address], 09/05/2024 12:26:12 09/06/19 25 09/05/2024 COMPL ETE BLOOD COUNT % neutrophils 66.3 % 42.0-7 8.0 normal Not Available [facility] [address] [place] [address], [address], 09/05/2024 12:26:12 09/06/19 25 09/05/2024 COMPL ETE BLOOD COUNT % lymphocytes 21.0 % 11.0-4 7.0 normal Not Available [facility] [address] [place] [address], [address], 09/05/2024 12:26:12 09/06/19 25 09/05/2024 COMPL ETE BLOOD COUNT % monocytes 6.7 % 0.0-11 .0 normal Not Available [facility] [address] [place] [address], [address], 09/05/2024 12:26:12 09/06/19 25 09/05/2024 COMPL ETE BLOOD COUNT % eosinophils 4.8 % 0.0-7. 0 normal Not Available [facility] [address] [place] [address], [address], 09/05/2024 12:26:12 09/06/19 25 09/05/2024 COMPL ETE BLOOD COUNT % basophils 1.2 % 0.0-3. 0 normal Not Available [facility] [address] [place] [address], [address], 09/05/2024 12:26:12 09/06/19 25 09/05/2024 COMPL ETE BLOOD COUNT nucleated red cells 0.0 % 0.0-0. 9 normal Not Available [facility] [address] [place] [address], [address], 09/05/2024 12:26:12 09/06/19 25 09/05/2024 COMPL ETE BLOOD COUNT nucleated RBCs, absolute 0.00 10*3/ uL not estab. normal Not Available [facility] [address] [place] [address], [address], 09/05/2024 12:26:12 09/06/19 25 09/05/2024 COMP. METAB OLIC PANEL glucose 103 mg/dL 74-100 high Not Available [facility] [address] [place] [address], [address], 09/05/2024 12:26:46 09/06/19 25 09/05/2024 COMP. METAB OLIC PANEL blood urea nitrogen 21 mg/dL 6-20 high Not Available [facility] [address] [place] [address], [address], 09/05/2024 12:26:46 09/06/19 25 09/05/2024 COMP. METAB OLIC PANEL creatinine 1.12 mg/dL 0.70-1 .20 normal Not Available [facility] [address] [place] [address], [address], 09/05/2024 12:26:46 09/06/19 25 09/05/2024 COMP. METAB OLIC PANEL BUN/creatini ne ratio 19 (calc ) 10-20 normal Not Available [facility] [address] [place] [address], [address], 09/05/2024 12:26:46 09/06/19 25 09/05/2024 COMP. METAB OLIC PANEL sodium 142 mmol/ L 136-14 5 normal Not Available [facility] [address] [place] [address], [address], 09/05/2024 12:26:46 09/06/19 25 09/05/2024 COMP. METAB OLIC PANEL potassium 4.3 mmol/ L 3.4-5. 0 normal Not Available [facility] [address] [place] [address], [address], 09/05/2024 12:26:46 09/06/19 25 09/05/2024 COMP. METAB OLIC PANEL chloride 107 mmol/ L 98-107 normal Not Available [facility] [address] [place] [address], [address], 09/05/2024 12:26:46 09/06/19 25 09/05/2024 COMP. METAB OLIC PANEL carbon dioxide 26 mmol/ L 22-31 normal Not Available [facility] [address] [place] [address], [address], 09/05/2024 12:26:46 09/06/19 25 09/05/2024 COMP. METAB OLIC PANEL anion gap 9 (calc ) 7-25 normal Not Available [facility] [address] [place] [address], [address], 09/05/2024 12:26:46 09/06/19 25 09/05/2024 COMP. METAB OLIC PANEL calcium 9.5 mg/dL 8.6-10 .2 normal Not Available [facility] [address] [place] [address], [address], 09/05/2024 12:26:46 09/06/19 25 09/05/2024 COMP. METAB OLIC PANEL total protein 7.7 g/dL 6.4-8. 3 normal Not Available [facility] [address] [place] [address], [address], 09/05/2024 12:26:46 09/06/19 25 09/05/2024 COMP. METAB OLIC PANEL albumin 4.3 g/dL 3.5-5. 2 normal Not Available [facility] [address] [place] [address], [address], 09/05/2024 12:26:46 09/06/19 25 09/05/2024 COMP. METAB OLIC PANEL globulin 3.4 1.5-4. 5 normal Not Available [facility] [address] [place] [address], [address], 09/05/2024 12:26:46 09/06/19 25 09/05/2024 COMP. METAB OLIC PANEL albumin/glob ulin ratio 1.3 (calc ) 1.1-2. 5 normal Not Available [facility] [address] [place] [address], [address], 09/05/2024 12:26:46 09/06/19 25 09/05/2024 COMP. METAB OLIC PANEL bilirubin, total 0.5 mg/dL 0.1-1. 2 normal Not Available [facility] [address] [place] [address], [address], 09/05/2024 12:26:46 09/06/19 25 09/05/2024 COMP. METAB OLIC PANEL alkaline phosphatase 87 U/L 40-129 normal Not Available [facility] [address] [place] [address], [address], 09/05/2024 12:26:46 09/06/19 25 09/05/2024 COMP. METAB OLIC PANEL AST 20 U/L 0-40 normal Not Available [facility] [address] [place] [address], [address], 09/05/2024 12:26:46 09/06/19 25 09/05/2024 COMP. METAB OLIC PANEL ALT 14 U/L 0-41 normal Not Available [facility] [address] [place] [address], [address], 09/05/2024 12:26:46 09/06/19 25 09/05/2024 COMP. METAB OLIC PANEL GFR 63 >= 60 normal NOT E New calcu latio n for GFR (CKD- EPI 2020) is formu lated witho ut race adjus tment facto rs at [facility] m[facility] tion of the Edi Oliveira y Found atvicky and Rahul lawrence [facility] . This calcu latio n has not been valid ated in pregn ant women . For pedia tric patie nts refer to https ://traci arguelles.jumana bhardwaj/florentin au s/LOBITOO QI/gf r_cal culat orPed Not Available [facility] [address] [place] [address], [address], 09/05/2024 12:26:46 08/23/19 24 08/23/2023 devic e [...] 3 view No observ ation record ed. [facility] [address], [place], [address], 11/24/2023 07:43:31 03/05/20 24 03/05/2024 elect rocar diogr am No observ ation record ed. [email or web address] [facility] [address], [place], [address], 03/05/2024 10:43:48 03/05/20 24 02/27/2024 elect rocar diogr am No observ ation record ed. BARCODE Not Available 2023 16:14:41 03/26/20 24 03/05/2024 remot e devic e inter rogat ion (PROC ) No observ ation record ed. [email or web address] Not Available 2023 15:00:50 04/16/20 24 04/16/2024 US, doppl er echoc ardio gram, w/ color flow No observ ation record ed. [email or web address] [facility] [address], [place], [address], 2024 08:59:33 09/06/19 25 09/05/2024 remot e [...] therapy Active 2016 ADE HARRIS PA-C [address] [place], [address] , [facility] 7 10:08:52 Cardiac pacemake r in situ 950196913 Active 2016 ADE HARRIS PA-C [address] [place], [address] , [facility] 7 10:33:08 Neuropat hy 162990779 Completed 201509/19/2017 From Automate d Load;Pro vider: Linda Kenney;St atus: Active ROHINI INIGUEZ MD [facility] [place], [address] , [facility] 8 10:31:47 Low back pain 276131284 Completed 201509/19/2017 From Automate d Load;Pro vider: Linda Kenney;St atus: Active ROHINI INIGUEZ MD [address] [place], [address] , [facility] 8 10:31:31 Anemia 518743594 Completed 201708/03/2017 ROHINI INIGUEZ MD [facility] [place], [address] , [facility] 8 14:03:25 Hyperlip idemia 09415665 Active 2017 on atorvast atin ROHINI INIGUEZ MD [facility] [place], [address] , [facility] 8 10:32:41 Transien t cerebral ischemia 849426654 Active 2017 status post TIA 03/10/17- weakness right side of face and right hand which resolved .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 ROHINI INIGUEZ MD [address] [place] [address], [address] , [facility] 8 10:36:28 Anemia of chronic disease 902347196 Active 2017 ROHINI INIGUEZ MD [address] [place] [address], [address] , [facility] 8 14:03:31 Gastroes ophageal reflux disease 429309495 [facility] 2017 [facility] 8 16:07:49 Actinic keratosi s 518939778 Active 2017 15 TOTAL [facility] 8 16:09:58 History of hematuri a 514812065 Active [address] Keisha INIGUEZ MD [address] [place] [address], [address] , [facility] 8 10:40:41 History of calculus of kidney 115696754 Active 2017 with microsco pic hematuri a that has been followed by Dr. Keisha INIGUEZ MD [address] [place] [address], [address] , [facility] 8 10:33:25 History of malignan t neoplasm of prostate 411289405 Active 2017 total prostate ctomy 2004 ROHINI INIGUEZ MD [address] [place] [address], [address] , [facility] 8 10:32:14 History of colonosc opy 09238199437 9 Active 2017 divertic ulosis-o therwise normal. Done 07/26/17 ROHINI INIGUEZ MD [address] [place] [address], [address] , [facility] 8 10:34:28 Spinal stenosis of lumbar region 19994005 Active [address] scan January 2017.. Stenosis at L4-5 and followed by neurosur charlotte yuen seen June 2017 ROHINI INIGUEZ MD [address] [place], [address] , [facility] 8 10:40:28 Elevated blood-pr essure reading without diagnosi s of hyperten dayna 090673201 Completed 201805/01/2019 ROHINI INIGEUZ MD [address] [place], [address] , [facility] 9 08:51:08 Pain in left lower limb 691998717 Active 2018 ROHINI INIGUEZ MD [address] [place], [address] , [facility] 9 10:43:53 Pain of shoulder region 06900033 Active 2018 NADEGE SALGADO, PT [address] [place], [address] , [facility] 9 13:31:52 Shoulder girdle weakness 809941299 Active 2018 NADEGE SALGADO, PT [address] [place], [address] , [facility] 9 13:32:05 Shoulder stiff 167389423 Active 2018 NADEGE SALGADO, PT [address] [place], [address] , [facility] 9 13:32:13 Injury of tendon of the rotator cuff of shoulder 283005452 Active 2018 NADEGE SALGADO, PT [address] [place], [address] , [facility] 9 13:32:20 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 He does [place] [address] [place] [address], [address] , [facility] 9 08:51:00 Insomnia 346311398 Active 2018 ROHINI INIGUEZ MD [address] [place] [address], [address] , [facility] 9 09:10:07 Hypercoa gulabili ty state 27166592 Active Not Available [employer] 4 07:19:11 Atherosc lerosis of aorta 16266244 Active Not Available [employer] 4 07:19:27 Congesti ve heart failure 52648856 Active Not Available [employer] 4 07:19:50 Disorder of upper respirat ory system 619576711 Completed 201409/19/2017 From Automate d Load;Pro vider: Rohini Richardson;Pina tatus: Active ROHINI INIGUEZ MD [address] [place] [address], [address] [facility] 8 10:31:21 Cough 07975644 Completed 201409/19/2017 From Automate d Load;Pro vider: Rohini Richardson;S tatus: Active ROHINI INIGUEZ MD [address] [place] [address], [address] [facility] 8 10:31:42 Sick sinus syndrome 07023231 Active 2015 From Automate d Load;Pro vider: Ade Harris;Pina tatus: Active Not Available [facility] 6 23:51:43 Paroxysm al atrial fibrilla tion 778070303 Active 2015 normal Myoview stress test 11/17 with EF of 40% ROHINI INIGUEZ MD [address] [place] [address], [address] [facility] 8 10:41:04 Problem Notes Documentation Provider Name and Address Organization Details Recorded Time Cardiology Note : [facility] [address] [facility] [address], [facility] [id number], Virgil G (id #[id number], : 1935) [facility] [address] [facility] [address] [place] [address] Encounter Summary - Progress Note Date Printed: [...] received this fax in error, please visit [email or web address] to notify the sender and confirm that the information will be destroyed. If you do not have internet access, please call to notify the sender and confirm that the information will be destroyed. Thank you for your attention and cooperation. [ID:[id number]] Patient Galen Hameed (88yo, M) #[id number] 1935 Patient Demographics: Address [address] [place] [address] Work Phone Encounter Notes: Encounter Reason/Date 6 mo sae/medtronic 08/23/2023 - 09:30AM - [facility]ARDI[facility]Y [facility] History of Present IllnessMrPratik Hameed is an [...] in the HPI Vitals Ht: 6 ft Fsbpwl3308/23/2023 09:14 am Wt: 198 lbs 4 oz With rsqxipd8308/23/2023 09:19 am BMI: 26.9008/23/2023 09:19 am BP: [...] for results. Assessment and Plan1. Paroxysmal atrial xlsvyxeupdaq-UZO6XC2-Awny score - 2EKG reviewed which shows normal [...] current doses. CMP and magnesium levels ordered lempyU98.899: Other senior care (current) drug therapy 5. Overweight-Current BMI 26.9. Target BMI 25. FLP ordered ucunnW88.3: Overweight BODY MASS INDEX: CARE INSTRUCTIONS Discussion [...] contact us. Jamel Cherry MD, FACP, FACC, [facility] Cardiology-[facility] [phone] Return to Office JAMEL CHERRY MD for RECHECK at [facility] on 02/28/2024 at 09:30 AM to see [...] Vaccines Vaccine Type Date Amt. Route Site [facility] Lot # Mfr. Exp. 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 Pneumococcal pneumococcal conjugate PCV 13 10/31/14 pneumococcal 12/11/03 DECLINES FLU SHOT/ covid vaccines x3 Electronically Signed by: JAMEL CHERRY MD [facility] 08/23/2023 12:40:53 Cardiology Note : [facility] [address], [facility] [id number], Virgil G (id #[id number], : 1935) [facility] [address] [place] [address] Encounter Summary - Progress Note Date Printed: [...] received this fax in error, please visit [email or web address] to notify the sender and confirm that the information will be destroyed. If you do not have internet access, please call to notify the sender and confirm that the information will be destroyed. Thank you for your attention and cooperation. [ID:[id number]] Patient Galen Hameed (88yo, M) #[id number] 1935 Patient Demographics: Address [address] [place] [address] Work Phone Encounter Notes: Encounter Reason/Date 6 [...] am Wt: 193 lbs 3.2 oz With otlkurg9503/05/2024 08:43 am BMI: 26.210 08:43 am BP: [...] for results. Assessment and Plan1. Paroxysmal atrial xegnukmlfjbk-IQW3YN8-Ilof score - 2EKG reviewed which shows normal [...] CHECK (PROC)Place of service: OFFICE Procedure code: 57766, 47469, 45872, 22834, 23370, 64622, [address]5581, [address]64 Authorization: Medicare[place] (Medicare) [place]REQUIRED [place] for [address], [address], [address], [address], [address], [address], [address]707, 18846Yeueufkwocdvk: Standard Life (Medicare Supplement) NOTREQUIRED Not Required for [address], 14984, 10992, 640[address], 75[address], [address], [address]2600, [address]353 4. Long-term drug therapy-Currently on flecainide 100 mg twice a day. EKG reviewed. No obvious evidence of drug toxicity. Continue with current doses. CMP and magnesium levels ordered today QTc OK.Z79.899: Other senior care (current) drug therapy ELECTROCARDIOGRAM 5. Overweight-Current BMI 26.9. Target BMI 25.E66.3: Overweight 6. Hyperlipidemia-FLP 08-23-2023: TC 254, TG 164, HDL 42, LDL 179. Placed on rosuvastatin 20 mg in the past. FLP ordered tyuzuR49.5: Hyperlipidemia, unspecified LIPID PANEL Return to Office ELOISE WHITE MD for RECHECK at [facility] on 09/05/2024 at 09:00 AM to see OCHOA POWERS MD at [facility] on or around 07/26/2027 Patient Medical History: [...] Vaccines Vaccine Type Date Amt. Route Site [facility] Lot # Mfr. Exp. 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 Pneumococcal pneumococcal conjugate PCV 13 10/31/14 pneumococcal 12/11/03 DECLINES FLU SHOT/ covid vaccines x3 Electronically Signed by: ELOISE WHITE MD CHRISTINA NOBLE PA-C [address] [place] [address], [address], [facility] 03/06/2024 09:01:45 [address] Note : [address] [facility] [id number], Virgil G (id #[id number], : 1935) [address] [place] [address] Encounter Summary - Progress Note Date Printed: [...] received this fax in error, please visit [email or web address] to notify the sender and confirm that the information will be destroyed. If you do not have internet access, please call to notify the sender and confirm that the information will be destroyed. Thank you for your attention and cooperation. [ID:[id number]] Patient Galen Hameed (89yo, M) #[id number] 1935 Patient Demographics: Address [address] [place] [address] Work Phone Encounter Notes: Encounter Reason/Date 6 mo sae/medtronic 09/05/2024 - 09:00AM - [facility] History of Present IllnessWM/SSS/PPM - Medtronic. PxAF on flecainide. ZXA4GW5-LHBj score 2. He is currently on clopidogrel [...] am Wt: 197 lbs 14.4 oz With sjboltj7809/05/2024 08:49 am BMI: 26.8009/05/2024 08:49 am BP: [...] magnesium levels ordered today, QTc OK.Z79.899: Other senior care (current) drug therapy 3. Paroxysmal atrial dxzrauhebkjo-GBE1LQ5-Rltq score - 2EKG reviewed which shows normal [...] VO MD for DERMATOLOGY VISIT at [facility] on 09/09/2024 at 11:30 AM ELOISE WHITE MD for RECHECK at [facility] on 03/11/2025 at 11:40 AM CHRISTINA NOBLE PA-C for PHYSICAL EXAM at [facility] on 04/08/2025 at 09:00 AM to see [...] Vaccines Vaccine Type Date Amt. Route Site [facility] Lot # Mfr. Exp. 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 Influenza influenza, high dose seasonal 04/08/24 0.5 mL Intramuscular Deltoid, Left [id number] Sanofi Pasteur 12/02/24 Inactivated Influenza 01/08/2021 04/08/24 Laura Smith Pneumococcal Pneumococcal conjugate PCV20, polysaccharide [id number] conjugate, adjuvant, PF 04/08/24 0.5 mL Intramuscular Deltoid, Right [id number] Pfizer, Inc 07/05/25 Pneumococcal Conjugate 10/14/2022 04/08/24 Laura Smith pneumococcal conjugate PCV 13 10/31/14 pneumococcal 12/11/03 DECLINES FLU SHOT/ covid vaccines x3 Electronically Signed by: ELOISE WHITE MD CHRISTINA NOBLE PA-C [facility] [place], [address], [facility] 09/05/2024 09:21:56 Procedures Surgical History Date Name Laterality Status Provider Name and Address Organization Details Recorded Time 09/06/19 25 EKG [place], [address], [facility] 09/05/2024 09:15:34 04/09/20 24 Shave Lesion; trunk, arm, leg completed GUSTAVO VO MD [address] [place], [address], [facility] 04/15/2024 17:16:33 04/09/20 24 Destruction Premalignant Lesion(s) completed [facility] 04/09/2024 09:12:47 04/09/20 24 Destruction BN Lesions completed [facility] 04/09/2024 09:11:40 03/05/20 24 EKG completed ELOISE WHITE MD [address] [place], [address], [facility] 02/23/2024 11:14:55 08/23/19 24 EKG completed Tamanna [facility] 08/23/2023 09:14:52 02/09/20 23 EKG completed Brie [facility] 02/08/2023 11:32:01 07/12/19 23 EKG completed JAMEL CHERRY MD [address] [place], [address], [facility] 07/12/2022 14:05:45 01/13/20 22 EKG completed ADE HARRIS PA-C [address] [place], [address], [facility] 01/12/2022 10:03:28 11/06/19 22 Shave Lesion; scalp, neck, hand, foot, genitalia completed GUSTAVO VO MD [address] [place], [address], [facility] 11/10/2021 12:42:36 07/14/19 22 EKG completed ADE HARRIS PA-C [address] [place], [address], [facility] 07/14/2021 10:02:35 01/14/20 21 EKG completed ADE HARRIS PA-C [address] [place], [address], [facility] 01/13/2021 10:03:22 07/22/19 21 EKG completed ADE HARRIS PA-C [address] [place], [address], [facility] 07/22/2020 12:07:10 01/22/20 20 EKG completed JAMEL CHERRY MD [address] [place], [address], [facility] 01/22/2020 10:33:51 06/27/19 20 EKG completed ADE HARRIS PA-C [address] [place], [address], [facility] 06/27/2019 10:18:11 05/24/20 19 PT Therapeutic Exercise completed ANDEGE SALGADO, PT [address] [place], [address], [facility] 05/24/2019 13:23:35 05/10/20 19 PT Therapeutic Exercise completed NADEGE SALGADO, PT [address] [place], [address], [facility] 05/10/2019 16:42:43 04/19/20 19 PT Therapeutic Exercise completed NADEGE SALGADO, PT [address] [place], [address], [facility] 04/19/2019 13:30:18 04/05/20 19 PT Therapeutic Exercise completed NADEGE SALGADO, PT [address] [place], [address], [facility] 04/05/2019 17:15:22 03/28/20 19 PT Therapeutic Exercise completed NADEGE SALGADO, PT [address] [place], [address], [facility] 03/28/2019 13:08:23 03/22/20 19 PT Therapeutic Exercise completed NADEGE SALGADO, PT [address] [place], [address], [facility] 03/22/2019 18:12:35 03/12/20 19 PT Therapeutic Exercise completed NADEGE SALGADO, PT [address] [place], [address], [facility] 03/12/2019 14:54:01 03/05/20 19 PT Therapeutic Exercise completed ELOISE DALE II, PT, DPT [address] [place], [address], [facility] 03/05/2019 15:30:57 02/29/20 19 PT Therapeutic Exercise completed NADEGE SALGADO, PT [address] [place], [address], [facility] 02/28/2019 19:25:15 02/20/20 19 PT Therapeutic Exercise completed NADEGE SALGADO, PT [address] [place], [address], [facility] 02/19/2019 12:55:57 02/13/20 19 Injection Joint/Bursa, Major completed SARAN HOLLINGSWORTH MD [address] [place], [address], [facility] 02/12/2019 11:03:21 02/13/20 19 PT Therapeutic Exercise completed NADEGE SALGADO, PT [address] [place], [address], [facility] 02/12/2019 13:39:16 02/06/20 19 PT Evaluation - Low Complexity completed NADEGE SALGADO, PT [address] [place], [address], [facility] 02/05/2019 13:24:38 02/06/20 19 PT Therapeutic Exercise completed NADEGE SALGADO, PT [address] [place], [address], [facility] 02/05/2019 13:24:51 12/26/19 19 EKG completed ADE HARRIS PA-C [address] [place], [address], [facility] 12/25/2018 10:59:12 09/27/19 19 Destruction Premalignant Lesion(s) completed Laura [facility] 09/26/2018 09:55:21 06/26/19 19 EKG completed ADE HARRIS PA-C [address] [place], [address], [facility] 06/26/2018 13:05:49 01/02/20 18 EKG completed ADE HARRIS PA-C [address] [place], [address], [facility] 01/01/2018 11:30:12 09/20/19 18 Destruction Premalignant Lesion(s) completed Laura [facility] 09/19/2017 11:05:25 07/04/19 18 EKG completed ADE HARRIS PA-C [address] [place], [address], [facility] 07/04/2017 10:59:38 06/20/19 18 Destruction Premalignant Lesion(s) completed Laura [facility] 06/20/2017 11:02:00 03/21/20 17 Echocardiogram completed ROHINI CALDERON MD [address] [place], [address], [facility] 03/21/2017 12:52:30 01/03/20 17 EKG completed ADE HARRIS PA-C [address] [place], [address], [facility] 01/02/2017 11:31:22 07/05/19 17 EKG completed ADE HARRIS PA-C [address] [place], [address], [facility] 07/05/2016 10:41:16 Imaging Results None recorded. Procedure Notes None recorded. 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 [employer] Serial Number Lot Number Status Provider Name and Address Organization Details Recorded Time [employer] FDA [id number] [facility] 05/03/2018 13:43:59 Allergies Allergen ID Allergen Name Allergen Category Reaction Reaction Severity Criticality Documentation Date Start Date Code Code System Note Provider Name and Address Organization Details Recorded Time 537933 Substance with sulfonami de structure and antibacte rial mechanism of action (substanc e) medicatio n rash mild Not available 04/29/20162004 46700 8003 SNOMED React ion: RASH; Sever ity: Mild; Comme nt: bactr im ds;Cr eated By: French mattson Date: 005 1:52: 19 PM; Not Available [facility] 6 04:00:35 Medications Name Sig Start Date [...] Updated DateTime 06/13/2024 182.88 cm 25.9 kg/m2 89551.14 g Laura Luis [facility] 06/13/2024 15:04:59 Date Recorded Body height Body mass index (BMI) Body weight Respiratory rate Oxygen saturation Oxygen saturation in Arterial blood by Pulse oximetry Heart rate Systolic blood pressure Diastolic blood pressure Provider Name and Address Organization Details Last Updated DateTime 182.88 cm 26.9 kg/m2 74812.6 9 g 16 /min 95 % 95 % 74 /min 124 mm[Hg] 78 mm[Hg] Tamanna Zaldivar [facility] 09:25:18 Date Recorded Body height Body mass index (BMI) Body weight Heart rate Respiratory rate Oxygen saturation Oxygen saturation in Arterial blood by Pulse oximetry Systolic blood pressure Diastolic blood pressure Provider Name and Address Organization Details Last Updated DateTime 5 182.88 cm 26.8 kg/m2 10374.9 3 g 71 /min 16 /min 97 % 97 % 148 mm[Hg] 78 mm[Hg] [facility] 5 08:50:15 Date Recorded Body height Body mass index (BMI) Body weight Oxygen saturation Oxygen saturation in Arterial blood by Pulse oximetry Respiratory rate Heart rate Systolic blood pressure Diastolic blood pressure Provider Name and Address Organization Details Last Updated DateTime 4 182.88 cm 26.2 kg/m2 94131.0 5 g 96 % 96 % 14 /min 72 /min 160 mm[Hg] 84 mm[Hg] [facility] 4 08:47:18 Date Recorded Body height Body mass index (BMI) Body weight Body temperature Respiratory rate Heart rate Oxygen saturation Oxygen saturation in Arterial blood by Pulse oximetry Systolic blood pressure Diastolic blood pressure Provider Name and Address Organization Details Last Updated DateTime 4 182.88 cm 25.9 kg/m2 42730.1 4 g 97.3 [degF] 16 /min 86 /min 96 % 96 % 134 mm[Hg] 82 mm[Hg] Laura Smith [facility] 4 09:15:45 Social History Question Answer Notes LastModified by Organizat ion Details LastModified Time Tobacco Smoking Status Former Smoker Brie Paulino [facility] 07/04/2016 08:22:44 What Is Your Level Of Caffeine Consumption? Moderate [email or web address] Information not available 04/08/2024 How Much Tobacco [...] How Many Children Do You Have? 3 [email or web address] Information not available 07/14/2021 What Is Your Relationship Status? [email or web address] Information not available 07/14/2021 How Much Tobacco Do You Smoke? 0.25 PPD Information not available 09/19/2017 How Many Years Have You Smoked Tobacco? 30 Information not available 09/19/2017 Have You Recently Traveled Abroad? No [email or web address] Information not available 07/14/2021 Sex: Unknown Functional Status Question Answer Note LastModified by Organizat ion Details LastModified Time Do you use any illicit or recreational drugs? No [email or web address] Information not available 04/08/2024 Do you or have you ever used any other forms of tobacco or nicotine? No [email or web address] Information not available 07/12/2022 What is your level of alcohol consumption? None Information not available 04/08/2024 Do you or have you ever used smokeless tobacco? 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 not available 04/08/2024 What is your [...] unspecified formulation 12/11/19 04 completed Laura raymond [facility] 03/16/2017 12:26:54 Pneumococcal conjugate PCV 13 11/01/19 15 completed Laura raymond [facility] 03/16/2017 12:27:15 Pneumococcal conjugate PCV20, polysaccharide [id number] conjugate, adjuvant, PF 04/08/20 24 completed [place], [address], [facility] 04/08/2024 10:09:45 Tdap 04/08/20 cancelled patient objection CHRISTINA NOBLE PA-C [address] [place], [address], [facility] 04/08/2024 10:09:45 zoster recombinant 04/08/20 24 cancelled patient objection CHRISTINA NOBLE PA-C [address] [place], [address], [facility] 04/08/2024 10:09:45 Influenza, high-dose, trivalent, PF 04/08/20 completed CHRISTINA NOBLE PA-C [address] [place], [address], [facility] 04/08/2024 10:09:45 Past Encounters Encounter ID Performer Location Encounter Start Date Encounter Closed Date Diagnosis/Indication Diagnosis SNOMED-CT Code Diagnosis ICD10 Code Diagnosis Note [id number] ADE HARRIS PA-C CARDIOLOG Y [address] [place],[address] [place] [address] 07/05/2016 09:36:43 07/06/2016 09:42:08 Atrial fibrillation 72330363 I48.91 Paroxysmal atrial fibrillation 463434426 I48.0 Sick sinus syndrome 3608 3008 I49.5 Long-term drug therapy 200253587 Z79.899 Cardiac pa c[place] in situ 890089650 Z95.0 [id number] [facility] [address] 09/05/2016 16:10:08 09/05/2016 16:10:08 [id number] ADE HARRIS PA-C CARDIOLOG Y [address] [place],[address] [place] [address] 01/02/2017 10:10:56 01/02/2017 11:48:05 Sick sinus syndrome 36740345 I49.5 Paroxysmal atrial fibrillation 821448039 I48.0 Cardiac pa cemaker in situ 746980773 Z95.0 Long-term drug therapy 238788880 Z79.111 [id number] ROHINI INIGUEZ MD [address] [place] [address] 01/02/2017 13:19:49 01/02/2017 14:10:53 Low back pain 163348983 M54.5 CT SCAN LOW BACKrefer to neurosurge ryhe is not gong to continue to take the gabapentin his he does not really feel is beneficial .I told him that I do not think his foot drop is reversible by would like to do the above studies and get neurosurge ry's opinion. A brace might be beneficial . [id number] STEPHAN VELAZQUEZ MD [facility] [address] [place] [address] 01/17/2017 12:29:48 01/23/2017 15:19:47 Spinal stenosis of lumbar region 10457178 M48.06 -CT was reviewed. The patient apparently [...] to follow-up for recheck in 4 months. [id number] ROHINI INIGUEZ MD [facility] [address] [place] [address] 03/16/2017 10:47:26 03/16/2017 12:54:25 Adult health examination 010847810 Z00.00 awv Hyperlipidemia 69198076 E78.5 new to atorvastat in-ldl 188-due fup labs in 3 months Cerebrovas cular accident 895135298 I63.9 s/p middle cerebral artery stroke distributi on left sided without sequela evaluated by DR.DAvid Mott in neurology- chg from 81 asa to plavix 75 mg per day. has a fup with . asymptomat ic at this time. 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 He did have a positive cooguard but never had colonoscop y. We will do follow-up studies today. Occult blo od detected in feces 35227242 R19.5 Cologuard was positive in March. He was to have a colonoscop y but he never did Hyperlipidemia 78897450 E78.5 on atorvastat in 20 mg. Will get alt, ast, lipid profile. Actinic keratosis 018595 007 L57.0 x1 Skin lesion 86311847 L98 .9 irritated polyploid area right forehead treated with ln2 [id number] BRIJESH FAY PA-C [facility] [address] [place] [address] 06/20/2017 12:29:31 06/22/2017 09:11:17 Spinal stenosis of lumbar region 19852771 M48.061 82M with L4-5 stenosis as seen [...] by Dr. Velazquez who agrees with above. [id number] ADE HARRIS PA-C CARDIOLOG Y [address] [place] [address] 07/04/2017 10:00:34 07/04/2017 14:01:14 Paroxysmal atrial fibrillation 393929087 I48.0 Sick sinus syndrome 3608 3008 I49.5 Cardiac pa cemaker in situ 161344861 Z95.0 Transient cerebral ischemia 200200427 G45.9 [id number] OCHOA POWERS MD SURGERY SCHEDULE [address] [place] [address] 07/26/2017 08:06:30 07/26/2017 08:07:40 [id number] ROHINI INIGUEZ MD [facility] [address] [address] 09/19/2017 09:34:11 09/19/2017 11:16:08 Adult health examination 609575505 Z00.00 discussed with him getting the shingles shot-the new one. I would suggest one of the pharmacies . Anemia of chronic disease 088453322 D63.8 workup was done 08/03/17. H&H was stable at 13.4/38.1. Ferritin was normal. TIBC was low and consistent with anemia chronic disease. B12 and folate were normal. Recent colonoscop y is also normal. Transient cerebral ischemia 770450480 G45.9 asymptomat ic Hyperlipidemia 39669778 E78.5 on atorvastat in 20 mg-takes a half per day. ALT and AST were normal in 08/03/17. LDL was 92. I suggested he increase his atorvastat in to 20 mg a day in hopes of getting his LDL under 70 due to history of TIA Elevated blood-pressure reading without diagnosis of hypertension 188188923 R03.0 check blood pressure and follow-up 1 month Cerebral i nfarction due to thrombosis of cerebral arteries 040378978 I63.30 actually this was a TIA. He's asymptomat ic this time. 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 [id number] ROHINI INIGUEZ MD [facility] [address] [address] 10/24/2017 14:16:13 10/24/2017 15:41:52 Elevated blood-pressure reading without diagnosis of hypertension 545570038 R03.0 bp is controlled on no medication [id number] ADE HARRIS PA-C CARDIOLOG Y [address] [place] [address] 01/01/2018 10:11:14 01/01/2018 11:33:51 Paroxysmal atrial fibrillation 282024360 I48.0 Sick sinus syndrome 3608 3008 I49.5 Cardiac ilda reddy in situ 342587363 Z95.0 Transient cerebral ischemia 990604510 G45.9 [id number] LINDA KENNEY PA-C [address] [facility] [place] [address] 01/26/2018 15:00:28 01/26/2018 16:10:18 Allergic rhinitis 42127725 J30.9 symptoms c/w allergic rhinitis. start zyrtec otc daily and flonase as directed. if not improving over the next week or if symptoms of URI develop, rtc. [id number] LINDA KENNEY PA-C [address] [place] [address] 02/12/2018 13:23:09 02/12/2018 15:14:00 Diarrhea 41062923 R19.7 has had loose to watery stool x 10 days. check labs and stool studies. continue bland diet and push fluids. start a probiotic daily. further tx recs to follow after reviewing lab results. [id number] VIRGIL ROQUE PA-C [address] [place] [address] 03/14/2018 08:13:43 03/14/2018 09:23:46 Hyperlipidemia 60948195 E78.5 Anemia 153744998 D64.9 stable Paroxysmal atrial fibrillation 222118044 I48.0 followed by cardiology [id number] STEPHAN VELAZQUEZ MD NE[facility]OSURG [facility] [address] [place] [address] 03/27/2018 08:23:21 03/30/2018 10:25:57 Spinal stenosis of lumbar region 25800798 M48.061 Mr. Hameed presents with stable left [...] changes. He is happy with this plan. [id number] VIRGIL ROQUE PA-C [address] [place] [address] 04/11/2018 09:50:50 04/11/2018 11:16:21 Adult health examination 867346118 Z00.00 Sick sinus syndrome 3608 3008 I49.5 Cardiac pa maureen in situ 570540115 Z95.0 [id number] ADE HARRIS PA-C CARDIOLOG Y [address] ,[address] [place] [address] 06/26/2018 09:56:43 06/26/2018 13:11:34 Paroxysmal atrial fibrillation 742007908 I48.0 Sick sinus syndrome 3608 3008 I49.5 [id number] CHRISTINA NOBLE PA-C [address] [place] [address] 06/26/2018 12:56:58 06/26/2018 15:45:29 Seasonal allergic rhinitis 404645443 J30.2 below medication . 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 [id number] ROHINI INIGUEZ MD [address] [place] [address] 09/26/2018 08:12:39 09/26/2018 10:07:35 Adult health examination 404666747 Z00.00 discussed with him getting the shingles shot-the new one. I would suggest one of the pharmacies . Elevated blood-pressure reading without diagnosis of hypertension 271953577 R03.0 same thing occurred last year. In follow-up and was normal. I will have him check his blood pressure over the next month and come back and see me. History of malignant neoplasm of prostate 492543640 Z85.46 with history of total prostatect zackery Anemia of chronic disease 603418036 D63.8 Transient cerebral ischemia 444194967 G45.9 asymptomat ic Hyperlipidemia 85944472 E78.5 currently is off of atorvastat in- HE WILL RESTART THIS AND WE WILL RECHECK LABS IN ONE MONTH. Actinic keratosis 007 L57.0 X13 [id number] ROHINI INIGUEZ MD [facility] [address] [place] [address] 10/26/2018 09:09:03 10/26/2018 10:43:04 Hyperlipidemia 79217703 E78.5 he restarted the atorvastat in 20 mg- we will ck lipid profile, alt and ast. Elevated blood-pressure reading without diagnosis of hypertension 151786302 R03.0 he brought in several bp readings that were all nml. only 3 elevated systolic out of 35 readings.m ax systolic 147. continue to ck periodical ly. Anemia 071115597 D64.9 stable Spinal gena nosis of lumbar region 79388952 M48.[address]Phillip cueva - Pain in le ft lower limb 221261754 M79.605 with weakness.l eft leg pain and weakness due to claudicati ons which have been evaluated by Dr.PHillip sotero salcedo-heber trent. the next step would be ct mylogram which he is not ready at this time. [id number] ADE HARRIS PA-C CARDIOLOG Y [address] ,[address] [place] [address] 12/25/2018 09:46:27 12/25/2018 11:08:48 Paroxysmal atrial fibrillation 486900805 I48.0 Sick sinus syndrome 3608 3008 I49.5 Cardiac ilda reddy in situ 625461235 Z95.0 [id number] ROHINI INIGUEZ MD [facility] [address] [place] [address] 01/16/2019 14:12:50 01/16/2019 14:37:04 Pain of right shoulder joint 3793309434 1671628 M25.511 refer to PT- Pain of ri ght elbow joint 2110813048 7515383 M25.521 suggested 3 advil 200 mg 3x a day refer to physical therapy. if this does not get better, we will get xray. suggested tennis elbow pain. [id number] NADEGE SALGADO, PT PHYSICAL THERAPY / HAND THERAPY [facility] [address] [place] [address] 02/05/2019 08:41:58 02/05/2019 15:24:51 Pain of shoulder region 31513298 M25.511 Injury of tendon of the rotator cuff of shoulder 322435011 S46.001D Shoulder g irdle weakness 442649780 M99.07 Shoulder stiff 060591953 M25.893 [id number] NADEGE SALGADO, PT PHYSICAL THERAPY / HAND THERAPY [facility] [address] [place] [address] 02/12/2019 08:34:15 02/12/2019 17:09:00 Injury of tendon of the rotator cuff of shoulder 346534127 S46.001D Shoulder stiff 318983786 M25.611 Shoulder g irdle weakness 909342929 M99.07 [id number] SARAN HOLLINGSWORTH MD ORTHOPEDI [facility] [address] [place] [address] 02/12/2019 10:08:27 02/13/2019 10:03:21 Rotator cuff tear arthropathy 366903825 S46.011A [id number] NADEGE SALGADO, PT PHYSICAL THERAPY / HAND THERAPY [facility] [address] [place] [address] 02/19/2019 07:11:17 02/19/2019 12:59:40 Injury of tendon of the rotator cuff of shoulder 225535465 S46.001D Pain of sh oulder region 21802877 M25.511 Shoulder g irdle weakness 973973221 M99.07 [id number] NADEGE SALGADO, PT PHYSICAL THERAPY / [facility]APY [facility] [place] [address] 02/28/2019 07:43:28 03/01/2019 14:38:45 Injury of tendon of the rotator cuff of shoulder 325221076 S46.001D Shoulder g irdle weakness 322709072 M99.07 Pain of oulder region 13387976 M25.773 [id number] ELOISE DALE II, PT, DPT PHYSICAL THERAPY / HAND THERAPY [facility] [place] [address] 03/05/2019 09:29:24 03/05/2019 15:34:24 Shoulder girdle weakness 328784934 M99.07 Injury of tendon of the rotator cuff of shoulder 951964662 S46.001D Pain of sh oulder region 69289235 M25.216 [id number] NADEGE SALGADO, PT PHYSICAL THERAPY / [facility]APY [facility] [place] [address] 03/12/2019 07:42:35 03/12/2019 15:09:17 Injury of tendon of the rotator cuff of shoulder 631117863 S46.001D Shoulder g irdle weakness 607662393 M99.07 Pain of oulder region 05358757 M25.010 [id number] NADEGE SALGADO, PT PHYSICAL THERAPY / [facility]Y [facility] [place] [address] 03/22/2019 07:20:07 03/25/2019 07:27:25 Injury of tendon of the rotator cuff of shoulder 027552080 S46.001D Shoulder g irdle weakness 639534630 M99.07 Shoulder stiff 897206332 M25.611 Pain of oulder region 22922103 M25.543 [id number] NADEGE SALGADO, PT PHYSICAL THERAPY / [facility] [place] [address] 03/28/2019 08:00:14 03/28/2019 14:30:37 Injury of tendon of the rotator cuff of shoulder 396499389 S46.001D Shoulder g irdle weakness 565519856 M99.07 Pain of sh oulder region 50436700 M25.872 [id number] NADEGE SALGADO, PT PHYSICAL THERAPY / [facility]Y [facility] [address] [place] [address] 04/05/2019 07:28:17 04/08/2019 08:59:13 Injury of tendon of the rotator cuff of shoulder 729123453 S46.001D Pain of sh oulder region 51208875 M25.511 Shoulder g irdle weakness 237113470 M99.07 Shoulder stiff 960375279 M25.470 [id number] NADEGE SALGADO, PT PHYSICAL THERAPY / HAND TH[facility]APY [facility] [address] [place] [address] 04/19/2019 08:01:34 04/19/2019 15:19:08 Injury of tendon of the rotator cuff of shoulder 428214330 S46.001D Shoulder g irdle weakness 109718978 M99.07 Shoulder stiff 686643061 M25.611 Pain of sh oulder region 49621136 M25.674 [id number] ROHINI INIGUEZ MD [facility] [address] [place] [address] 05/01/2019 07:28:47 05/01/2019 10:33:32 Adult health examination 952390127 Z00.00 AWV - discussed with him getting the shingles shot-the new one. I would suggest one of the pharmacies . HE DECLINES THE FLU SHOT. HE WILL MAKE APPT FOR HIS EYE EXAM- Labile hyp ertension due to being in a clinical environment 096056250 I15.8 this has been evaluated on several occ with nml bp at home but elevated in the office. He does not have hypertensi on. next time he comes in, he will bring his cuff in to compare with ours. Anemia of chronic disease 359652088 D63.8 WE WILL CK A CBC TODAY Hyperlipidemia 31354070 E78.5 he just had a lipid panel 04-29-19 with ldl of 87. He is taking 1/2 of lipitor 20 mg. . I want his ldl under 70 with hx of tia. I want him to take a whole- 20 mg. we will recheck his lipids at his gme in september. Paroxysmal atrial fibrillation 533803447 I48.0 followed by cardiology Sick sinus syndrome 3608 3008 I49.5 followed by cardiology Transient cerebral ischemia 563397195 G45.9 asymptomat ic Insomnia 468366489 G47.0 0 TX WITH TRAZADONE 100 MG. TAKE 1-2 AT HS FOR SLEEP. START OFF WITH 1, IF THAT DOES NOT WORK GO TO 1.5 TAB- IF THAT DOES NOT WORK , TAKE 2 TABLETS. HE CAN ADD BENADRYL OR MELATONIN IF NEEDED. [id number] NADEGE SALGADO, PT PHYSICAL THERAPY / HAND THERAPY [facility] [address] [place] [address] 05/10/2019 07:54:42 05/13/2019 07:26:51 Injury of tendon of the rotator cuff of shoulder 304775027 S46.001D Shoulder g irdle weakness 788035795 M99.07 Pain of oulder region 33829316 M25.311 [id number] NADEGE SALGADO, PT PHYSICAL THERAPY / HAND TH[facility]APY [facility] [address] [place] [address] 05/24/2019 08:03:34 05/24/2019 14:12:57 Injury of tendon of the rotator cuff of shoulder 018378556 S46.001D Shoulder g irdle weakness 619908743 M99.07 Pain of oulder region 18406266 M25.267 [id number] ADE HARRIS PA-C CARDIOLOG Y [address] [place] [place] [address] 06/27/2019 09:51:27 06/27/2019 12:15:05 Paroxysmal atrial fibrillation 704995233 I48.0 Sick sinus syndrome 3608 3008 I49.5 Cardiac pa cemaker in situ 687948704 Z95.0 normal function with estimated longevity 6.5 years. Findings discussed with the patient. [id number] JAMEL CHERRY MD CARDIOLOG Y [address] [place],[facility] [place] [address] 01/22/2020 09:19:58 01/22/2020 10:40:10 Paroxysmal atrial fibrillation 733875828 I48.0 [id number]-Ao sc score - 2 EKG reviewed. Currently normal sinus rhythm. Medication s reviewed. Compliance advised. Refill prescripti ons given. Sick sinus syndrome 3608 3008 I49.5 S/P PPM-Medtro aydin - noted Cardiac ilda reddy in situ 835796989 Z95.0 pacemaker interrogat ed at home on 01/02/20. Device functionin g normally. 5.5 years to ANYI Essential hypertension 17644178 I10 I recommende d he monitors blood pressure and decrease sodium intake to less than 2000 mg a day. Target blood pressure < 140/90 Long-term drug therapy 124824129 Z79.899 currently on flecainide . QTC/QRS intervals are normal limits. CBC, CMP and magnesium levels ordered today. [id number] ADE HARRIS PA-C CARDIOLOG Y [address] [place],[address] [place] [phone] 07/22/2020 10:21:56 07/22/2020 15:37:39 Paroxysmal atrial fibrillation 156729711 I48.0 low burden less than 0.1%. Has respectful ly declined anticoagul ation Sick sinus syndrome 3608 3008 I49.5 s/p pacemakere stimated longevity 5 years. Continue following in our device clinic Cardiac ilda reddy in situ [id number] Z95.0 normal function with estimated longevity 5 years. Findings discussed with the patient. Long-term drug therapy 072047868 Z79.899 no evidence of flecainide toxicity on EKG. Findings discussed with the patient. Recent labs reviewed and discussed with the patient. Patient understand s the necessity for semiannual follow-up with surveillan ce EKG and labs while utilizing chronic antiarrhyt hmics. Labile hyp ertension due to being in a clinical environment 021532713 I15.8 mild elevated blood pressures today discussed with the patient. He monitors them closely at home and reports they're always less than 140 systolic. He attributes it to white coat syndrome [id number] ADE HARRIS PA-C CARDIOLOG Y [address] [place],[address] [place] [phone] 5 01/13/2021 09:23:19 01/13/2021 10:11:12 Paroxysmal atrial fibrillation [id number] I48.0 low burden less than 0.1%. Has respectful ly declined anticoagul ation Sick sinus syndrome 3608 3008 I49.5 s/p pacemakere stimated longevity 4.5 years. Continue following in our device clinic Cardiac ilda reddy in situ 741684785 Z95.0 device interrogat ion from our device clinic remote transmissi on reviewed and discussed with the patient. 0% burden of atrial fibrillati on. Estimated longevity on pacemaker generator 4.5 years Long-term drug therapy 816300871 Z79.899 no evidence of flecainide toxicity on EKG. Findings discussed with the patient. Recent labs reviewed and discussed with the patient. Patient understand s the necessity for semiannual follow-up with surveillan ce EKG and labs while utilizing chronic antiarrhyt hmics. Labile hyp ertension due to being in a clinical environment 452610349 I15.8 mild elevated blood pressures today discussed with the patient. He monitors them closely at home and reports they're always less than 140 systolic. He attributes it to white coat syndrome [id number] ADE HARRIS PA-C CARDIOLOG Y [address] ,[address] [place] [address] 07/14/2021 08:49:28 07/14/2021 11:26:12 Overweight 172526042 E66.3 Paroxysmal atrial fibrillation 132054715 I48.0 low burden less than 0.1%. Has respectful ly declined anticoagul ation Sick sinus syndrome 3608 3008 I49.5 s/p pacemakere stimated longevity 4 years. Continue following in our device clinic Cardiac ilda reddy in situ 639694506 Z95.0 device interrogat ion from our device clinic remote transmissi on reviewed and discussed with the patient. 0% burden of atrial fibrillati on. Estimated longevity on pacemaker generator 4 years Long-term drug therapy 190837239 Z79.899 no evidence of flecainide toxicity on EKG. Findings discussed with the patient. Recent labs reviewed and discussed with the patient. Patient understand s the necessity for semiannual follow-up with surveillan ce EKG and labs while utilizing chronic antiarrhyt hmics. [id number] CHRISTINA NOBLE PA-C [facility] [address] [place] [address] 10/27/2021 10:55:44 10/27/2021 11:28:15 Dysplastic nevus of skin 232512868 D22.9 Referral to dermatolog y [id number] GUSTAVO VO MD [facility] [address] [place] [address] 11/05/2021 14:01:43 11/05/2021 14:58:19 Raised seborrheic keratosis [id number] 93965 L82.1 Reassuranc e and education regarding the disorder and options. Neoplasm o f uncertain behavior of skin 44763148 D48.5 Left mastoid posterior - Education, thenshave removaland base destroyed with electrodes sication. Lentiginosis 256058747 L 81.4 [id number] ILDA JENKINS-[facility] CARDIOLOG [facility] [address] [place] [address] 01/12/2022 09:27:45 01/12/2022 10:14:16 Overweight 423123584 E66.3 Paroxysmal atrial fibrillation 176584740 I48.0 low burden less than 0.1%. Has respectful ly declined anticoagul ation Sick sinus syndrome 3608 3008 I49.5 s/p pacemakere stimated longevity 3.5 years. Continue following in our device clinic Cardiac pa maureen in situ 431660767 Z95.0 device interrogat ion from our device clinic remote transmissi on reviewed and discussed with the patient. 0% burden of atrial fibrillati on. Estimated longevity on pacemaker generator 3.5 years Long-term drug therapy 917992947 Z79.899 no evidence of flecainide toxicity on EKG. Findings discussed with the patient. Recent labs reviewed and discussed with the patient. Patient understand s the necessity for semiannual follow-up with surveillan ce EKG and labs while utilizing chronic antiarrhyt hmics. [id number] JAMEL CHERRY MD CARDIOLOG Y [address] [place] [address] 5 07/12/2022 12:54:29 07/12/2022 15:11:26 Overweight 085233706 E66.3 Current BMI 26. Target BMI 25 Paroxysmal atrial fibrillation 243830426 I48.0 [id number]-Pm sc score - 2EKG reviewed which shows [...] PPM-Medtro aydin... Cardiac pa cemaker in situ 151197682 Z95.0 Device interrogat ed today. It is functionin g normally. 3 years to ANYI. No programmin g changes made. No atrial fibrillati on noted. Continue with home pacemaker monitoring . Long-term drug therapy 799075040 Z79.899 Currently on flecainide 100 mg twice a day. EKG reviewed. Recent lab results reviewed. No obvious evidence of drug toxicity. Continue with current doses Elevated blood-pressure reading without diagnosis of hypertension 463171495 R03.0 I recommend he continue monitoring his blood pressure at home. Decrease sodium intake to less than 2000 mg a day. Target blood pressure < 140/90 [id number] JAMEL CHERRY MD CARDIOLOG Y [address] ,[address] [place] [address] 02/08/2023 10:53:06 02/08/2023 12:11:32 Paroxysmal atrial fibrillation 479358530 I48.0 [id number]-Az sc score - 2EKG reviewed which shows [...] PPM-Medtro aydin... Cardiac pa cemaker in situ 680935626 Z95.0 Remote pacemaker interrogat ion done. Device functionin g normally. Continue with home pacemaker monitoring . Long-term drug therapy 023573263 Z79.899 Currently on flecainide 100 mg twice a day. EKG reviewed. No obvious evidence of drug toxicity. Continue with current doses. CBC, CMP and magnesium levels ordered today Overweight 968996186 E66 .3 Current BMI 25.6. Target BMI 25 [id number] JAMEL CHERRY MD CARDIOLOG Y [address] ,[address] [place] [phone] 08/23/2023 08:39:42 08/23/2023 12:19:58 Paroxysmal atrial fibrillation 898084281 I48.0 MYG1PI3-Rv sc score - 2EKG reviewed which shows [...] PPM-Medtro aydin... Cardiac pa cemaker in situ 510998854 Z95.0 Pacemaker interrogat ed today. 27 months to ANYI. Device functionin g normally. Continue with home pacemaker monitoring . Long-term drug therapy 330098867 Z79.899 Currently on flecainide 100 mg twice a day. EKG reviewed. No obvious evidence of drug toxicity. Continue with current doses. CMP and magnesium levels ordered today Overweight 171953665 E66 .3 Current BMI 26.9. Target BMI 25. FLP ordered today [id number] ELOISE WHITE MD CARDIOLOG Y [address] ,[address] [place] [phone] 03/05/2024 08:25:02 03/05/2024 09:43:56 Paroxysmal atrial fibrillation 798999499 I48.0 [id number]-Mm sc score - 2EKG reviewed which shows [...] PPM-Medtro aydin... Cardiac pa cemaker in situ 485574221 Z95.0 Assessment was performed of the implanted [...] atrial fibrillati on noted. Long-term drug therapy 302434343 Z79.899 Currently on flecainide 100 mg twice a day. EKG reviewed. No obvious evidence of drug toxicity. Continue with current doses. CMP and magnesium levels ordered today QTc OK. Overweight 193523113 E66 .3 Current BMI 26.9. Target BMI 25. Hyperlipidemia 07279038 E78.5 FLP 08-23-2023: TC 254, TG 164, HDL 42, LDL 179. Placed on rosuvastat in 20 mg in the past. FLP ordered today [id number] CHRISTINA NOBLE PA-C FAM[facility] [address] [facility] [place] [address] 04/08/2024 08:55:17 04/08/2024 10:16:31 Adult health examination 775138792 Z00.00 Patient presented to office today for their Medicare Annual Wellness Visit. Wellness visit Questionna cara was reviewed. Depression screening was negative and no followup plan is needed. Emphasized preventive health measures including fall prevention to help reduce health risks and promote healthy living. Screening for malignant neoplasm of colon 773806094 Z12.11 colonoscop y on 07/26/2017; 10 yr rpt; I stressed the importance of colon screenings and early detection of colon cancer Hepatitis C screening 41 1531252 Z11.59 Has patient ever had Hep C screening? NO Active immunization 3387 9002 Z23 Has patient had Hep B vaccine? NO Eye disord er screening 257600378 Z13.5 Has patient ever had eye/glauco ma screening? NO Paroxysmal atrial fibrillation 527547355 I48.0 Patient is actively managed by cardiology . Hyperlipidemia 79000706 E78.5 Lipid panel2023 was a total cholestero l 163, LDL of 94, triglyceri ailyn of 119, HDL 45. Continue with a low-fat diet and current medication s which is actively managed by cardiology Hypercoagu lability state 55539030 D68.69 Patient has A-fib but declines anticoagul ation medication . Atheroscle rosis of aorta 71711676 I70.0 08/2021 CT shows aortic calcificat ions. SInce pt has h/o CVA and can submit diagnosis of aortic atheroscle rosis. active management for this is already underway with Plavix+ BP meds. Managed by Cardiology Congestive heart failure 86445442 I50.9 Patient had diastolic disc function grade 1 on echo on 03/21/2017 . Repeat today Unsteady when walking 22 127799 R26.89 Will refer to physical therapy. He would like to have this in [place] Multiple b enign melanocytic nevi 483804532 D22.9 Dermatolog y referral for a full-body exam [id number] GUSTAVO VO MD [facility] [address] [place] [address] 04/09/2024 08:45:34 04/09/2024 14:13:18 Raised seborrheic keratosis 2060864651 27234 L82.1 Reassuranc e and education regarding the disorder and options. Lentiginosis 686046997 L 81.4 Reassuranc eRecommend ed Equate Ultra Sunscreen 30+ and sun protecting hats/cloth ing Inflamed s eborrheic keratosis 229379463 L82.0 LN x 9Pt educated what to expect from freezing Actinic keratosis [address] x 2Pt educated what to expect from freezing Multiple b enign melanocytic nevi 086959682 D22.9 Reassuranc e Neoplasm o f uncertain behavior of skin 77772120 D48.5 Rt lower calf has a 6mm dermal nodulePt reports burning/st inging painEducat ion, thenshave removaland base destroyed with electrodes sication.R /O DF vs otherConse nt and photo obtainedSe e procedure notePt tolerated wellWound care informatio n providedF/ u pending path [id number] ELOISE WHITE MD CARDIOLOG [facility] [address] [place] [address] 09/05/2024 07:59:56 09/06/2024 07:58:15 Cardiac pacemaker in situ 802623115 Z95.0 Assessment was performed of the implanted [...] the patient in detail. Long-term drug therapy 630497674 Z79.899 Currently on flecainide 100 mg twice a day. EKG reviewed. No obvious evidence of drug toxicity. Continue with current doses. CMP, CBC and magnesium levels ordered today, QTc OK. Paroxysmal atrial fibrillation 138901810 I48.0 CWP0VD1-Nk sc score - 2EKG reviewed which shows [...] Cisse Member ID Guarantor Name 09/03/2024 1 [place] Galen Hameed [id number] Galen Hameed 09/06/2024 2 [employer] (MEDICARE SUPPLEMENT) [id number] Galen Hameed [id number] Galen Hameed 03/05/2024 2 [employer] (MEDICARE SUPPLEMENT) Galen Hameed Notes Date Note [...] rhythm at 74 bpm. JAMEL CHERRY MD [address] [place] [address], [phone], [facility] 08/23/2023 09:41:33 03/05/2024 text/html WM/SSS/PPM - [...] to echocardiogram of 2017. ELOISE WHITE MD [address] [place] [address], [phone], [facility] 04/16/2024 12:34:22 04/08/2024 text/html An 88-year-old [...] questions or concerns today CHRISTINA NOBLE PA-C [address] [place] [address], [phone], [facility] 04/08/2024 10:10:19 04/09/2024 text/html Established roya ent LOCATION: Rt upper noseDURATION: YearsSYMPTOMS: AsxTREATMENTS: None Pt would like waist up exam today. Check Lt side of neck, Rt calf. Denies any other new, changing, or bleeding lesions, or other rashes, feels well, good mood and has no family history of melanoma. GUSTAVO VO MD [address] [place] [address], [phone], [facility] 04/15/2024 17:17:13 09/05/2024 text/html WM/SSS/PPM - [employer]. PxAF on flecainide. [id number] score 2. He is currently on clopidogrel [...] to echocardiogram of 2017. ELOISE WHITE MD [address] [place] [address], [phone], [facility] 09/05/2024 09:18:39
--- OUTSIDE RECORDS SUMMARY | 2024-11-18 09:42 | XMS_ITS ---
Author Organization Unknown [facility]REATMENT PL[facility] Start Date Provider Encounter for Check-up [id number] [facility]
[2024-11-18] MEDS: LIDOCAINE 2% 5ML PF VIAL 5 ML IH (09:54)
[2024-11-18 10:00] VITALS: BP 127/74; PULSE 76; O2SAT 99
[2024-11-18 10:30] VITALS: BP 118/69; PULSE 70; O2SAT 97
[2024-11-18 10:57] VITALS: BP 118/69; PULSE 74; RESP 20; TEMP 37; O2SAT 94
== END 2024-11-18 11:03 | disposition home or self-care (01) ==
PROVIDERS: Emergency Provider Emergency Medicine; PCP Internal Medicine
DX: J84.9 Interstitial pulmonary disease, unspecified (principal); R06.02 Shortness of breath; Z95.0 Presence of cardiac pacemaker; Z79.01 Long term (current) use of anticoagulants
CPT/HCPCS: 71046; 87636; 99283; J2003

== ENCOUNTER 2024-11-20 16:10 | Outpatient (CLI) | payer MEDICARE, OTHER, SELFPAY ==
[2024-11-20 17:24] LABS: Basophils # 0.1 K/mm3 (0-0.2); Basophils % 1.3 % (0.1-2.0); Eosinophils # 0.2 Kmm3 (0.0-0.4); Hematocrit 40.4 % (42.0-52.0); Immature Granulocytes # 0.02 10^3uL; Immature Granulocytes % 0.4 %; Lymphocytes # 1.1 K/mm3 (0.7-4.5); Lymphocytes % 22.3 % (10-50); Mean Corpuscular HGB Conc 32.2 g/dL (31.8-35.4); Mean Corpuscular Hemoglobin 30.2 pg (27.0-31.2); Mean Corpuscular Volume 93.7 fl (80-94); Mean Platelet Volume 10.8 fl (7.4-10.4); Monocytes # 0.3 K/mm3 (0.1-1.0); Monocytes % 5.4 % (1.7-9.3); Neutrophils # 3.2 K/mm3 (1.8-7.8); Neutrophils % 66.6 % (37.0-80.0); Nucleated Red Blood Cells # 0 10^3/uL; Nucleated Red Blood Cells % 0 %; Platelet Count 228 K/mm3 (142-424); Red Blood Count 4.31 M/mm3 (4.60-6.20); Red Cell Distribution Width 13.2 % (11.5-17.5); Red Cell Distribution Width-SD 45.2 fL; White Blood Count 4.8 K/mm3 (4.8-10.8)
[2024-11-20 19:12] LABS: Alanine Aminotransferase 17 U/L (12-78); Albumin Level 4.2 g/dl (3.5-5.0); Albumin/Globulin Ratio 1.6 (1.1-1.8); Alkaline Phosphatase 72 U/L (38-126); Anion Gap 10.6 mEq/L (5-15); Aspartate Amino Transferase 25 U/L (17-59); Bilirubin,Total 0.5 mg/dl (0.2-1.3); Blood Urea Nitrogen 20 mg/dl (9-20); Calcium 9.9 mg/dl (8.4-10.2); Carbon Dioxide 28 mmol/L (22.0-30.0); Chloride 107 mmol/L (98-107); Estimated Glomerular Filt Rate 71 ml/min (>60); GFR (African American) 85 ML/MIN (>60); Globulin 2.7 g/dL (1.3-3.2); Glucose 103 mg/dl (74-100); Potassium 4.6 mmoL/L (3.5-5.1); Sodium 141 mmol/L (136-145); Total Protein,Serum 6.9 g/dl (6.3-8.2)
== END 2024-11-20 23:59 | disposition home or self-care (01) ==
LOC: LAB.DROPOF 11-21 09:58
PROVIDERS: PCP Internal Medicine; Visit Provider Internal Medicine
DX: Z00.00 Encounter for general adult medical examination without abnormal findings (principal); Z79.899 Other long term (current) drug therapy; D64.9 Anemia, unspecified
CPT/HCPCS: 80053; 85025